=== PATIENT | male | born 1950 | race Caucasian/White ===

== ENCOUNTER → 2016-06-13 | Outpatient (CLI) | payer BC, OTHER ==
[~2016-06-13] MED LIST: AMLO2.5T PO; ASPI81TA28 PO; GABA-1218 PO; GLUC15002 PO; HYDR2TAB3 PO; INSUINJ2 SC; LSNP/30 PO; METF-383 PO; MULT-506 PO; NAPR1TAB9 PO; NRN/300 PO; ONDA4TAB7 SL
== END | disposition home or self-care (01) ==
LOC: C.LAB 09:35
PROVIDERS: ATTEND Psychiatry & Neurology Neurology
DX: R41.3 Other amnesia (principal)

== ENCOUNTER → 2016-06-19 | Outpatient (CLI) | payer BC, OTHER ==
--- NOTE | 2016-06-19 14:16 | DIAGNOSTIC IMAGING REPORT ---
MR ANGIOGRAM OF THE BRAIN CLINICAL HISTORY: Memory changes. Dementia. Behavioral disturbance. COMPARISON STUDY: No priors. TECHNIQUE: 3-D [id number] MR angiography of the intracranial circulation is performed. 3-D tumble views are created and assessed. IV contrast was not administered for this examination. FINDINGS: The internal carotid arteries are widely patent bilaterally, as are the anterior and middle cerebral arteries. The vertebrobasilar system and posterior cerebral arteries are widely patent. The left vertebral artery is dominant. There is no aneurysm, high-grade stenosis, or focal vessel cutoff seen throughout the intracranial circulation. The brain parenchyma is normal as visualized. IMPRESSION: Unremarkable MR angiogram of the brain. Electronically signed by: En Willard M.D. 06/19/2016 2:15 PM Dictated Date/Time: 06/19/2016 2:11 PM
--- NOTE | 2016-06-19 14:28 | DIAGNOSTIC IMAGING REPORT ---
MRI OF THE BRAIN WITHOUT IV CONTRAST CLINICAL HISTORY: Memory loss. Dementia. Behavioral disturbances. COMPARISON STUDY: No priors. TECHNIQUE: MRI of the brain was performed utilizing various T1 and T2-weighted sequences in the axial, sagittal, and coronal planes. IV contrast was not administered for this examination. FINDINGS: Brain parenchyma: There are age-related involutional changes noting moderate patchy subcortical and periventricular microangiopathic disease. There is no hemorrhage or mass effect. There is a tiny chronic lacunar infarct in the right cerebellar hemisphere. There is no restricted diffusion to suggest acute ischemia. Roberts-white matter differentiation is preserved. No extra-axial fluid collection is seen. The cerebellar tonsils are normal in configuration. Ventricles, sulci, and cisterns: Prominent secondary to involutional change. Pituitary and sella: Unremarkable. Intracranial vasculature: Normal flow voids are maintained at the skull base. Orbits: The bony orbits are grossly intact. Orbital contents are normal in appearance. Sinuses and mastoids: Clear. Calvarium: Unremarkable. Cervical cord: Partially visualized cervical spinal cord is normal in morphology and signal intensity. IMPRESSION: Senescent changes as above with no acute intracranial abnormality. Electronically signed by: En Willard M.D. 06/19/2016 2:26 PM Dictated Date/Time: 06/19/2016 2:19 PM
== END | disposition home or self-care (01) ==
LOC: C.MRI 12:53
PROVIDERS: ATTEND Psychiatry & Neurology Neurology
DX: R41.3 Other amnesia (principal); F02.81 Dementia in other diseases classified elsewhere, unspecified severity, with behavioral disturbance

== ENCOUNTER 2018-05-03 16:26 | Inpatient (IN) ==
[2018-05-03 16:50] LABS: Basophils # (auto) 0.05 K/uL (0-0.2); Basophils % (auto) 0.4 %; Eosinophils # (auto) 0.39 K/uL (0-0.5); Eosinophils % (auto) 2.9 %; Hematocrit (blood only) 46.2 % (42-52); Hemoglobin 14.8 g/dL (14.0-18.0); Immature Granulocytes # (auto) 0.09 K/uL (0.00-0.02); Immature Granulocytes % (auto) 0.7 %; Lymphocytes # (auto) 3.33 K/uL (1.2-3.4); Lymphocytes % (auto) 24.9 %; Mean Corpuscular Volume 95.3 fL (80-100); Mean Platelet Volume 9.8 fL (7.4-10.4); Monocytes # (auto) 1.05 K/uL (0.11-0.59); Monocytes % (auto) 7.8 %; Neutrophils # (auto) 8.48 K/uL (1.4-6.5); Neutrophils % (auto) 63.3 %; Platelet Count 232 K/uL (130-400); RDW Coefficient of Variation 14.1 % (11.5-14.5); RDW Standard Deviation 49.4 fL (36.4-46.3); Red Blood Count 4.85 M/uL (4.7-6.1); White Blood Count 13.39 K/uL (4.8-10.8)
[2018-05-03] MEDS ORDERED: SODIUM CHLORIDE 0.9% 1000ML 1,000 ML IV ONE (16:53)
[2018-05-03 16:59] LABS: iSTAT Creatinine 4.2 mg/dl (0.6-1.3); iSTAT Ionized Calcium 1.12 mmol/l (1.12-1.32)
--- NOTE | 2018-05-03 17:09 | XRay Report ---
SINGLE VIEW CHEST CLINICAL HISTORY: Cough. FINDINGS: An AP, portable, semierect chest radiograph is compared to study dated 03/07/2014. The exami nation is degraded by portable technique and apical lordotic positioning. The heart is enlarged and there is atherosclerotic calcification of the thoracic aorta. The pulmonary vasculature is noncongest ed. There is chronic elevation of the right hemidiaphragm and bibasilar atelectasis. There is no larg e pleural effusion or pneumothorax. No pneumothorax is seen. The skeletal structures are osteopenic. The bony thorax is grossly intact. Arthritic change is seen in the shoulders and thoracic spine. IMPRESSION: 1. Cardiomegaly without radiographic evidence of congestive failure. 2. Bibasilar atelectasis with no airspace consolidation or large pleural effusion identified. Electronically signed by: En Willard M.D. 05/03/2018 5:08 PM
--- NOTE | 2018-05-03 17:18 | CT Scan Report ---
CT OF THE HEAD WITHOUT CONTRAST CLINICAL HISTORY: Altered mental status. COMPARISON STUDY: MRI of the brain June 19, 2016. CT DOSE: 945.80 mGy.cm TECHNIQUE: Helical axial images of the head were obtained without IV contrast. Automated exposure con trol was utilized for the study. A dose lowering technique was utilized adhering to the principles o f ALARA. FINDINGS: Exam is mildly compromised by motion artifact. No acute intracranial hemorrhage, midline sh ift or mass effect is present. Ventricular system is stable. The basilar cisterns are patent. There a re no extra axial collections. White matter hypodensity suggests small vessel disease. There are no f indings to suggest acute dural sinus thrombosis or acute territorial infarct. There are no significan t calvarial abnormalities. IMPRESSION: 1. No acute intracranial findings. 2. Study mildly compromised by motion artifact. Electronically signed by: Lionel Barrett M.D. 05/03/2018 5:17 PM
[2018-05-03 17:22] LABS: Alanine Aminotransferase 34 U/L (12-78); Albumin Globulin Ratio 0.6 (0.9-2); Alkaline Phosphatase 105 U/L (45-117); Aspartate Aminotransferase 37 U/L (15-37); BUN Creatinine Ratio 16.4 (10-20); Bilirubin,Total 0.4 mg/dl (0.2-1); Blood Urea Nitrogen 75 mg/dl (7-18); Calcium 8.6 mg/dl (8.5-10.1); Carbon Dioxide 36 mmol/L (21-32); Chloride 95 mmol/L (98-107); Creatinine Clr Calc Pharmacy 20.2 ml/min; Est GFR (African American) 14.3; Est GFR (Non-African American) 12.4; Globulin 4.9 gm/dl (2.5-4.0); Glucose 135 mg/dl (70-99); Potassium 4.1 mmol/L (3.5-5.1); Sodium 137 mmol/L (136-145); Total Protein 7.9 gm/dl (6.4-8.2)
[2018-05-03 17:40] LABS: Appearance Urine Clear (Clear); Bacteria Urine Automated Negative (Negative); Bilirubin Urine Negative (Negative); Blood Urine Negative (Negative); Color Urine Dark Yellow; Epithelial Cell Urine Auto 0-5 /lpf (0-5); Glucose Urine UA 1+ (Negative); Ketones Urine Trace (Negative); Leukocyte Esterase Urine Negative (Negative); Nitrite Urine Negative (Negative); Protein Urine Trace (Negative); Specific Gravity Urine 1.026 (1.000-1.030); Urobilinogen Urine Negative (Negative)
[2018-05-03 17:49] LABS: Troponin I < 0.015 ng/ml (0-0.045)
--- NOTE | 2018-05-03 19:22 | History & Physical Report ---
Date of Service May 03, 2018 Assessment & Plan (1) Acute renal failure: Secondary to dehydration secondary to prerenal etiology/poor oral intake likely secondary to underlying infection Start IV NSS at 150 cc/h Hold lisinopril and HCTZ Renally dose medications Management of infection noted below Consult nephrology Kidney ultrasound (2) Poor appetite: Likely secondary to underlying infection Possible bronchitis Chest x-ray: No pneumonia Start doxycycline IV Sacral decubitus wound infection Check wound culture, blood culture, urine urine culture Start cefepime IV (3) Altered mental status: Likely metabolic encephalopathy secondary to hypoglycemia, acute renal failure, in the setting of narcotic and multiple medication use Aspect of hypoglycemia noted below Hold oxycodone acetaminophen, cyclobenzaprine; resume accordingly (4) Diabetes type 2 with atherosclerosis of arteries of extremities: Patient presented with hypoglycemia likely secondary to acute renal failure in the setting of poor oral intake, insulin use, underlying infection For now, hold usual insulin, glycemic control service consulted (5) Hypertension: Blood pressure in the low side Frontal, resume in the morning possibly reduce dose Hold lisinopril to hold thiazide (6) Low back pain: Usually on oxycodone/acetaminophen, cyclobenzaprine Hold for tonight, in light of altered mental status and acute renal failure Resume accordingly (7) DVT prophylaxis: Heparin subcutaneous 3 times daily (8) Discharge planning issues: Pending, Mostly bedbound, Lives at home with his who is his primary caregiver History of Present Illness Primary Care Provider: Lee Martinez Patient is a 68-year-old male with a history of Parkinson's disease with dementia, diabetes, hypertension, low back pain presenting with altered mental status and hypoglycemia. Obtained from patient's at the bedside who is his primary caregiver. As per patient's the patient is mostly bedbound and able to go to bathroom with maximum assistance. Terms of his mental status the patient has poor short-term memory, answers questions appropriately at least 70% of the time. Patient was at his usual state of health until over the weekend when he was noted to have productive cough, associated with fever. This progressed leading to poor appetite as well. Patient was still receiving his usual insulin doses as well as pain medications muscle relaxants. This morning the patient only had applesauce for breakfast and before lunch only had a few bites as well. He did receive his usual insulin dose. Around 2 PM the patient was noted to have altered mental status described as lethargy, not responding much to questions, and blood sugar was found to be in the 60s. He was given orange juice, which slightly improved his blood sugar. Patient was then brought to the ER for evaluation At the ER the patient was found to have creatinine of 4.49. CT head no acute process. Hospitalist consulted for admission . Allergies Allergy/AdvReac Type Severity Reaction Status Date / Time No Known Allergies Allergy Unverified 03/07/14 08:20 Past Med/Surg History Medical History Mini stroke Dementia (Chronic) Parkinson's disease (Chronic) Diabetes (Chronic) Hypertension (Chronic) Surgical History History of hip replacement, total (Chronic) Hx of cholecystectomy (Chronic) Social History marital status: Current Living Situation: Family Feels Safe at Home: Yes Smoking Status: Never smoker Review of Systems Constitutional-positive as noted above Eyes- no acute visual changes ENT- no sinus drainage; no pharyngitis Pulmonary-positive as noted above Cardiac- no chest pain, no palpitations, no orthopnea, no dependent edema GI- no nausea, no vomiting, no diarrhea, no melena, no hematochezia - no dysuria, no hematuria Musculoskeletal- no arthralgias, no myalgias Derm- no rashes, no new skin lesions, no changing skin lesions Hematologic- no unusual bruising, no unusual bleeding Lymphatics- no adenopathy Endocrine- no polyuria or polydipsia; no heat or cold intolerance Neuro-positive as noted above Psych- no anxiety, no depression Physical Exam Vital Signs (Past 24 Hours): Last Vital Signs Temp 37.1 C 05/03/18 16:25 Pulse 79 05/03/18 18:24 Resp 20 05/03/18 18:24 BP 109/63 05/03/18 18:09 Pulse Ox 93 05/03/18 18:24 Physical Exam: General- oriented x 2, not in distress, speaks in sentences with no effort or accessory muscle use Head- atraumatic Eyes- PERRL, EOMI, anicteric ENT- oropharynx clear Neck- supple, no JVD, no adenopathy, no thyromegaly; carotids +2/2, no bruits appreciated Lungs-mild lung rhonchi bilateral bases, no wheezing, good air entry bilaterally Heart- normal rate, regular rhythm; no murmur, no gallop, no rub appreciated Abdomen- normal bowel sounds, nondistended, soft, nontender, no masses or hepatosplenomegaly Buttocks-positive open sacral decubitus wounds mostly stage II with surrounding erythema Extremities- no pretibial edema, no calf tenderness; peripheral pulses intact Neuro- alert, oriented x 2; CN 2-12 grossly intact; motor 5/5 bilaterally;sensation 100% on all extremities; no other gross focal neurologic deficits Skin- warm & dry Results & Data Laboratory Results Laboratory Results - last 24 hr 05/03/18 05/03/18 05/03/18 16:32 16:32 16:38 WBC 13.39 H RBC 4.85 Hgb 14.8 POC Hgb Hct 46.2 POC Hct MCV 95.3 MCH 30.5 MCHC 32.0 RDW Std Deviation 49.4 H RDW Coeff of Apollo 14.1 Plt Count 232 MPV 9.8 Immature Gran % (Auto) 0.7 Neut % (Auto) 63.3 Lymph % (Auto) 24.9 Amador % (Auto) 7.8 Eos % (Auto) 2.9 Baso % (Auto) 0.4 Immature Gran # (Auto) 0.09 H Neut # (Auto) 8.48 H Lymph # (Auto) 3.33 Amador # (Auto) 1.05 H Eos # (Auto) 0.39 Baso # (Auto) 0.05 POC Sodium Sodium 137 POC Potassium Potassium 4.1 POC Chloride Chloride 95 L Carbon Dioxide 36 H POC Total CO2 Anion Gap 6.0 POC Anion Gap POC BUN BUN 75 H Creatinine 4.49 H POC Creatinine Est Cr Clr Drug Dosing 20.2 Est GFR ( Amer) 14.3 Est GFR (Non-Af Amer) 12.4 BUN/Creatinine Ratio 16.4 Glucose 135 H POC Glucose 125 H POC Glucose (other) POC Lactic Acid Aakash Calcium 8.6 POC Ioniz Calcium Cally Total Bilirubin 0.4 AST 37 ALT 34 Alkaline Phosphatase 105 Troponin I < 0.015 Total Protein 7.9 Albumin 3.0 L Globulin 4.9 H Albumin/Globulin Ratio 0.6 L Urine Color Urine Appearance Urine pH Ur Specific Hamilton Urine Protein Urine Glucose (UA) Urine Ketones Urine Blood Urine Nitrite Urine Bilirubin Urine Urobilinogen Ur Leukocyte Esterase Urine WBC (Auto) Urine RBC (Auto) U Hyaline Cast (Auto) U Epithel Cells (Auto) Urine Bacteria (Auto) Influenza Type A Ag Influenza Type B Ag 05/03/18 05/03/18 05/03/18 16:43 16:46 17:00 WBC RBC Hgb POC Hgb 16.0 Hct POC Hct 47 MCV MCH MCHC RDW Std Deviation RDW Coeff of Apollo Plt Count MPV Immature Gran % (Auto) Neut % (Auto) Lymph % (Auto) Amador % (Auto) Eos % (Auto) Baso % (Auto) Immature Gran # (Auto) Neut # (Auto) Lymph # (Auto) Amador # (Auto) Eos # (Auto) Baso # (Auto) POC Sodium 138 Sodium POC Potassium 4.0 Potassium POC Chloride 93 L Chloride Carbon Dioxide POC Total CO2 33 H Anion Gap POC Anion Gap 18.0 POC BUN 66 H BUN Creatinine POC Creatinine 4.2 H Est Cr Clr Drug Dosing Est GFR ( Amer) Est GFR (Non-Af Amer) BUN/Creatinine Ratio Glucose POC Glucose POC Glucose (other) 135 H POC Lactic Acid Aakash 2.66 H Calcium POC Ioniz Calcium Cally 1.12 Total Bilirubin AST ALT Alkaline Phosphatase Troponin I Total Protein Albumin Globulin Albumin/Globulin Ratio Urine Color Urine Appearance Urine pH Ur Specific Hamilton Urine Protein Urine Glucose (UA) Urine Ketones Urine Blood Urine Nitrite Urine Bilirubin Urine Urobilinogen Ur Leukocyte Esterase Urine WBC (Auto) Urine RBC (Auto) U Hyaline Cast (Auto) U Epithel Cells (Auto) Urine Bacteria (Auto) Influenza Type A Ag Neg for Influ A Influenza Type B Ag Neg for Influ B 05/03/18 17:00 WBC RBC Hgb POC Hgb Hct POC Hct MCV MCH MCHC RDW Std Deviation RDW Coeff of Apollo Plt Count MPV Immature Gran % (Auto) Neut % (Auto) Lymph % (Auto) Amador % (Auto) Eos % (Auto) Baso % (Auto) Immature Gran # (Auto) Neut # (Auto) Lymph # (Auto) Amador # (Auto) Eos # (Auto) Baso # (Auto) POC Sodium Sodium POC Potassium Potassium POC Chloride Chloride Carbon Dioxide POC Total CO2 Anion Gap POC Anion Gap POC BUN BUN Creatinine POC Creatinine Est Cr Clr Drug Dosing Est GFR ( Amer) Est GFR (Non-Af Amer) BUN/Creatinine Ratio Glucose POC Glucose POC Glucose (other) POC Lactic Acid Aakash Calcium POC Ioniz Calcium Cally Total Bilirubin AST ALT Alkaline Phosphatase Troponin I Total Protein Albumin Globulin Albumin/Globulin Ratio Urine Color Dark Yellow Urine Appearance Clear Urine pH 5.0 Ur Specific Hamilton 1.026 Urine Protein Trace H Urine Glucose (UA) 1+ H Urine Ketones Trace H Urine Blood Negative Urine Nitrite Negative Urine Bilirubin Negative Urine Urobilinogen Negative Ur Leukocyte Esterase Negative Urine WBC (Auto) 1-5 Urine RBC (Auto) 5-10 H U Hyaline Cast (Auto) 5-10 H U Epithel Cells (Auto) 0-5 Urine Bacteria (Auto) Negative Influenza Type A Ag Influenza Type B Ag Diagnostic Findings All noted and reviewed
[2018-05-03] MEDS ORDERED: ONDANSETRON INJ 2 MG/ML 2 ML VIAL IV PRN (20:01)
[2018-05-03] MEDS ORDERED: ACETAMINOPHEN 325 MG TAB PO PRN (20:01)
[2018-05-03] MEDS ORDERED: CEFEPIME CONSULT ACTIVE PRN (21:08)
[2018-05-03] MEDS ORDERED: PHARMACY GLYCEMIC MGMT CONSULT PRN (21:10)
[2018-05-03] MEDS ORDERED: DOXY~PHARMACY CONSULT IN PROGRESS PRN (21:12)
[2018-05-03] MEDS: SODIUM CHLORIDE 0.9% 1000ML 1,000 ML IV SCH (21:25)
[2018-05-03] MEDS ORDERED: CEFEPIME 2,000 MG in SYRINGE 7.5 ML IV SCH (21:30)
[2018-05-03] MEDS: ROPINIROLE HCL 1 MG TABLET PO SCH (21:57)
[2018-05-03] MEDS: GABAPENTIN 100 MG CAP PO SCH (21:57)
[2018-05-03] MEDS: DOXYCYCLINE HYCLATE 100 MG in DEXTROSE 5% 100 ML IV SCH (22:00)
--- NOTE | 2018-05-03 22:23 | Ultrasound Report ---
ULTRASOUND KIDNEYS AND BLADDER CLINICAL HISTORY: Acute renal insufficiency. COMPARISON STUDY: Abdominal CT dated 03/07/2014. TECHNIQUE: Real-time, grayscale, and color flow sonography of the kidneys and bladder is performed. I mages are reviewed in the transverse and longitudinal planes. The examination is suboptimal due to la ck of patient cooperation. FINDINGS: Kidneys: The kidneys are normal in size and echotexture. The right kidney measures 10.7 cm in length and the left kidney measures 11.8 cm in length. There is no hydronephrosis. No shadowing renal calcu li are identified. There is no sonographic evidence of contour deforming renal mass lesion. No perine phric fluid is identified. Bladder: The bladder is decompressed and a Blevins catheter and could not be assessed. Upper abdomen: Survey images of the liver show evidence of hepatomegaly and hepatic steatosis. IMPRESSION: 1. The kidneys are normal in size and without hydronephrosis. 2. The bladder was decompressed around a Blevins catheter and could not be evaluated. 3. Hepatomegaly and hepatic steatosis. Electronically signed by: En Willard M.D. 05/03/2018 10:21 PM
[2018-05-03] MEDS ORDERED: CARBOHYDRATES FOR HYPOGLYCEMIA PO PRN (22:30)
[2018-05-03] MEDS ORDERED: GLUCAGON FOR INJ 1 MG VIAL SQ PRN (22:30)
[2018-05-03] MEDS ORDERED: DEXTROSE 50% 50 ML SYRINGE IV PRN (22:30)
[2018-05-03] MEDS ORDERED: GLUCOSE 10 TABS/TUBE PO PRN (22:30)
[2018-05-03] MEDS ORDERED: GLUCOSE 40% GEL 15 GM TUBE PO PRN (22:30)
--- NOTE | 2018-05-03 23:15 | Emergency Department Note ---
Entered by Moen Dixon acting as a scribe for History of Present Illness General Chief complaint: Confusion Stated complaint: UNRESPONESIVE, HYPOTENTION Source: patient and family Mode of arrival: EMS Limitations: altered mental status History of Present Illness Provider complaint: hypoglycemia Onset (ago): hour(s) (HAND WELT BUTTER) Location: head Pain Consistency: + other (episode) Maximum Pain Intensity: 10 Current Pain Intensity: 4 Quality: + other (hypoglycemia) Associated symptoms: + denies other symptoms (abdominal pain) and + cough; no chest pain, no fever/chills, no headaches, no nausea/vomiting, no seizure and no shortness of breath The patient is a 68 year old male who presents to the Emergency Room via EMS following an episode of hypoglycemia that occurred earlier today. The at bedside reports that the patient is diabetic and earlier today was �acting funny,� so she checked with blood sugar which was 50. She states that she then gave him a candy bar and 2 cups of orange juice. Per , the patient has been having trouble with his blood sugar levels recently and notes he had lab work done last month which showed an elevated A1C. She reports that the patient has had a productive cough and states that he is bringing up yellow mucus. She denies any fevers, vomiting, falls or seizures but states that he did have an episode of epistaxis on Wednesday. The also notes that the patient has a history of 2 mini �strokes as well as dementia and Parkinson�s. Per , the patient did not receive the flu vaccine this season. The patient denies any chest pain, headache, abdominal pain, or shortness of breath. The reports that the patient uses nasal cannula oxygen at night. Home Medications Home Medications Medication Instructions Recorded Confirmed Type C,E,zinc,copper [id number] 1 cap PO DAILY 05/03/18 05/03/18 History [Ocuvite Adult 50 Plus] Narcan 4mg/0.1 1 dose PO UD PRN 05/03/18 05/03/18 History aspirin [Aspir-81] 81 mg PO DAILY 05/03/18 05/03/18 History carboxymethylcellulose-glycern 1 - 2 drp OPHTHALMIC (EYE) BID PRN 05/03/18 05/03/18 History [Refresh Repair] cholecalciferol (vitamin D3) 400 unit PO DAILY 05/03/18 05/03/18 History [Vitamin D3] cyanocobalamin (vitamin B-12) 500 mcg PO DAILY 05/03/18 05/03/18 History [Vitamin B-12] cyclobenzaprine 10 mg PO TID 05/03/18 05/03/18 History docusate sodium [Colace] 100 mg PO DAILY PRN 05/03/18 05/03/18 History gabapentin [Neurontin] 1,200 mg PO TID 05/03/18 05/03/18 History insulin regular hum U-500 conc 50 unit SUBCUT BID 05/03/18 05/03/18 History [Humulin R U-500 (Conc) Kwikpen] insulin regular hum U-500 conc 70 unit SUBCUT QAM 05/03/18 05/03/18 History [Humulin R U-500 (Conc) Kwikpen] lisinopril-hydrochlorothiazide 1 tab PO DAILY 05/03/18 05/03/18 History [Zestoretic] memantine-donepezil [Namzaric] 1 cap PO DAILY 05/03/18 05/03/18 History metformin [Glucophage] 1,000 mg PO BID 05/03/18 05/03/18 History multivitamin 1 tab PO DAILY 05/03/18 05/03/18 History oxycodone [OxyContin] 20 mg PO Q12 05/03/18 05/03/18 History oxycodone-acetaminophen [Percocet] 1 tab PO QID PRN 05/03/18 05/03/18 History propranolol 20 mg PO BID 05/03/18 05/03/18 History ropinirole 1 mg PO BID 05/03/18 05/03/18 History sennosides [senna] 8.6 mg PO BID PRN 05/03/18 05/03/18 History Allergies Allergy/AdvReac Type Severity Reaction Status Date / Time No Known Allergies Allergy Unverified 03/07/14 08:20 Past Med/Surg History Medical History Mini stroke Dementia (Chronic) Parkinson's disease (Chronic) Diabetes (Chronic) Hypertension (Chronic) Surgical History History of hip replacement, total (Chronic) Hx of cholecystectomy (Chronic) Social History Preferred Language: Pashto Communication Ability: Effective Management Architect Required: No Beliefs That Will Affect Care: None marital status: Current Living Situation: Spouse and Family Current Living Situation Comment: AND 3 CHILDREN Other Information That Helps Us Care for You: No Feels Safe at Home: Yes Safety Concerns: Feels Safe At This Time Smoking Status: Never smoker Hx Alcohol Use: No Hx Substance Use: No Review of Systems Other (HPI and ROS are both limited secondary to altered mental status. ) Physical Exam Vital Signs Vital Signs - 24 hr 05/03/18 16:25 05/03/18 16:50 05/03/18 17:13 Temperature 37.1 C Temperature Source Oral Sepsis Recent Fever Within 48 Hours No Sepsis New/Unexplained Change in Mental Status No Sepsis Action Taken by Nursing No Action Required Pulse Rate 83 78 Pulse Rate [Apical] 100 H Pulse Rhythm Regular Pulse Rhythm [Apical] Regular Pulse Strength Normal Pulse Strength [Apical] Normal Respiratory Rate 19 18 18 Respiratory Effort / Characteristics Non-Labored Spontaneous Non-Labored Spontaneous Respiratory Depth Normal Normal Respiratory Pattern Regular Regular Blood Pressure 128/73 93/75 L Blood Pressure [Left Arm] 114/82 Blood Pressure Mean 91 81 Blood Pressure Mean [Left Arm] 92 Blood Pressure Position [Left Arm] Lying Pulse Oximetry 90 91 89 L Oxygen Delivery Method Room Air Nasal Cannula Nasal Cannula Oxygen Flow Rate 2 2 05/03/18 17:25 05/03/18 17:32 05/03/18 17:54 Temperature Temperature Source Sepsis Recent Fever Within 48 Hours Sepsis New/Unexplained Change in Mental Status Sepsis Action Taken by Nursing Pulse Rate 77 Pulse Rate [Apical] 78 78 Pulse Rhythm Regular Pulse Rhythm [Apical] Regular Regular Pulse Strength Pulse Strength [Apical] Respiratory Rate 18 20 19 Respiratory Effort / Characteristics Labored Non-Labored Spontaneous Respiratory Depth Normal Normal Respiratory Pattern Regular Blood Pressure Blood Pressure [Left Arm] 94/63 L 108/67 Blood Pressure Mean Blood Pressure Mean [Left Arm] 73 80 Blood Pressure Position [Left Arm] Pulse Oximetry 94 95 95 Oxygen Delivery Method Nasal Cannula Nasal Cannula Nasal Cannula Oxygen Flow Rate 3 3 3 05/03/18 18:09 05/03/18 18:24 05/03/18 19:33 Temperature 36.8 C Temperature Source Oral Sepsis Recent Fever Within 48 Hours Sepsis New/Unexplained Change in Mental Status Sepsis Action Taken by Nursing Pulse Rate Pulse Rate [Apical] 78 79 79 Pulse Rhythm Pulse Rhythm [Apical] Regular Regular Regular Pulse Strength Pulse Strength [Apical] Normal Respiratory Rate 17 20 20 Respiratory Effort / Characteristics Non-Labored Spontaneous Non-Labored Spontaneous Respiratory Depth Normal Normal Normal Respiratory Pattern Regular Regular Blood Pressure Blood Pressure [Left Arm] 109/63 104/65 Blood Pressure Mean Blood Pressure Mean [Left Arm] 78 78 Blood Pressure Position [Left Arm] Lying Pulse Oximetry 96 93 91 Oxygen Delivery Method Nasal Cannula Nasal Cannula Nasal Cannula Oxygen Flow Rate 3 3 4 Constitutional: Vital signs reviewed. Eyes: Pupils are equal round reactive to light. Conjunctiva are noninjected. ENT: Pharynx is clear without erythema or exudate. Mucous membranes are moist. Neck supple without meningeal signs. Respiratory: Clear to auscultation bilaterally. Breath sounds are equal bilaterally. Cardiovascular: Regular rate and rhythm. No rubs or gallops. GI: Soft, nondistended and nontender. Bowel sounds are present. Musculoskeletal: No peripheral edema. No lower extremity tenderness. Integumentary: No cyanosis. Neurological: The patient is awake and alert. Cranial nerves II-XII are intact. Motor is 5 out of 5 all extremities. Follows some commands. Psychiatric: Unable to asses. Course 1633: Past medical records reviewed. The patient was evaluated in room A1, and a complete history and physical examination were performed. 1651: ISTAT labs demonstrate creatinine of 4.2 and normal potassium. The states that the patient has been urinating about 25% less than usual over the past several days and that his urine has been dark for years. 1727: I reviewed the patient's case with Zee Rojas [facility] Hospitalist. She will evaluate the patient for further management. 1731: I updated the patient and his on today's findings and treatment plan. The says the patient is back to baseline. Administered Medications Gabapentin (Neurontin) 200 mg PO TID [facility] Stop: 06/02/18 20:59 Last Admin: 05/03/18 21:57 Dose: 200 mg Documented by: [id number] Sodium Chloride (Nss 1000ml) 1,000 mls @ 150 mls/hr IV .Q6H40M [facility] Stop: 06/02/18 20:00 Last Admin: 05/03/18 21:25 Dose: 150 mls/hr Documented by: [id number] Doxycycline Hyclate 100 mg/ (Dextrose) 110 mls @ 55 mls/hr IV Q12H GEOVANNA Stop: 05/13/18 21:59 Last Admin: 05/03/18 22:00 Dose: 55 mls/hr Documented by: [id number] Ropinirole HCl (Requip) 1 mg PO BID GEOVANNA Stop: 06/02/18 20:59 Last Admin: 05/03/18 21:57 Dose: 1 mg Documented by: [id number] Discontinued Medications Sodium Chloride (Nss 1000ml) 1,000 mls @ 999 mls/hr IV .Q1H1M ONE Stop: 05/03/18 17:53 Last Infusion: 05/03/18 17:58 Dose: 0 mls/hr Documented by: [id number] Admin: 05/03/18 16:56 Dose: 999 mls/hr Documented by: [id number] Cefepime HCl 2,000 mg/ Syringe 20 mls @ 5 mls/min IV TODAY@2130 GEOVANNA Stop: 05/03/18 21:33 Last Admin: 05/03/18 21:57 Dose: 5 mls/min Documented by: [id number] Medical Decision Making Differential Diagnosis Differential Diagnosis includes: hypoglycemia, metabolic derangement, sepsis, influenza, pneumonia, and CVA. Medical Records Attestation: I reviewed the patient's medical records. Home Medications Current Medication List: was personally reviewed by me Laboratory Data Attestation: I reviewed the patient's lab results. Result diagrams: 05/03/18 16:32 05/03/18 16:32 Lab Results 05/03/18 05/03/18 05/03/18 Range/Units 16:32 16:32 16:32 WBC 13.39 H (4.8-10.8) K/uL RBC 4.85 (4.7-6.1) M/uL Hgb 14.8 (14.0-18.0) g/dL POC Hgb (14.0-18.0) g/dl Hct 46.2 (42-52) % POC Hct (42-52) % MCV 95.3 (80-100) fL MCH 30.5 (25-34) pg MCHC 32.0 (32-36) g/dL RDW Std Deviation 49.4 H (36.4-46.3) fL RDW Coeff of Apollo 14.1 (11.5-14.5) % Plt Count 232 (130-400) K/uL MPV 9.8 (7.4-10.4) fL Immature Gran % (Auto) 0.7 % Neut % (Auto) 63.3 % Lymph % (Auto) 24.9 % [place] % (Auto) 7.8 % Eos % (Auto) 2.9 % Baso % (Auto) 0.4 % Immature Gran # (Auto) 0.09 H (0.00-0.02) K/uL Neut # (Auto) 8.48 H (1.4-6.5) K/uL Lymph # (Auto) 3.33 (1.2-3.4) K/uL [place] # (Auto) 1.05 H (0.11-0.59) K/uL Eos # (Auto) 0.39 (0-0.5) K/uL Baso # (Auto) 0.05 (0-0.2) K/uL POC Sodium (135-144) mEq/L Sodium 137 (136-145) mmol/L POC Potassium (3.3-5.0) mEq/L Potassium 4.1 (3.5-5.1) mmol/L POC Chloride (101-112) mEq/L Chloride 95 L (98-107) mmol/L Carbon Dioxide 36 H (21-32) mmol/L POC Total CO2 (24-31) mEq/l Anion Gap 6.0 (3-11) POC Anion Gap (16-25) mmol/L POC BUN (7-18) mg/dl BUN 75 H (7-18) mg/dl Creatinine 4.49 H (0.6-1.4) mg/dl POC Creatinine (0.6-1.3) mg/dl Est Cr Clr Drug Dosing 20.2 ml/min Est GFR ( Amer) 14.3 Est GFR (Non-Af Amer) 12.4 BUN/Creatinine Ratio 16.4 (10-20) Glucose 135 H (70-99) mg/dl POC Glucose (70-99) POC Glucose (other) (70-99) mg/dl POC Lactic Acid Aakash (0.90-1.70) mmol/L Calcium 8.6 (8.5-10.1) mg/dl POC Ioniz Calcium Cally (1.12-1.32) mmol/l Total Bilirubin 0.4 (0.2-1) mg/dl AST 37 (15-37) U/L ALT 34 (12-78) U/L Alkaline Phosphatase 105 (45-117) U/L Troponin I < 0.015 (0-0.045) ng/ml Total Protein 7.9 (6.4-8.2) gm/dl Albumin 3.0 L (3.4-5.0) gm/dl Globulin 4.9 H (2.5-4.0) gm/dl Albumin/Globulin Ratio 0.6 L (0.9-2) Urine Color Urine Appearance (Clear) Urine pH (4.5-7.5) Ur Specific [place] (1.000-1.030) Urine Protein (Negative) Urine Glucose (UA) (Negative) Urine Ketones (Negative) Urine Blood (Negative) Urine Nitrite (Negative) Urine Bilirubin (Negative) Urine Urobilinogen (Negative) Ur Leukocyte Esterase (Negative) Urine WBC (Auto) (0-5) /hpf Urine RBC (Auto) (0-4) /hpf U Hyaline Cast (Auto) (0-5) /lpf U Epithel Cells (Auto) (0-5) /lpf Urine Bacteria (Auto) (Negative) Hepatitis C Ab Screen Neg (Neg) Influenza Type A Ag (Neg) Influenza Type B Ag (Neg) 05/03/18 05/03/18 05/03/18 Range/Units 16:38 16:43 16:46 WBC (4.8-10.8) K/uL RBC (4.7-6.1) M/uL Hgb (14.0-18.0) g/dL POC Hgb 16.0 (14.0-18.0) g/dl Hct (42-52) % POC Hct 47 (42-52) % MCV (80-100) fL MCH (25-34) pg MCHC (32-36) g/dL RDW Std Deviation (36.4-46.3) fL RDW Coeff of Apollo (11.5-14.5) % Plt Count (130-400) K/uL MPV (7.4-10.4) fL Immature Gran % (Auto) % Neut % (Auto) % Lymph % (Auto) % [place] % (Auto) % Eos % (Auto) % Baso % (Auto) % Immature Gran # (Auto) (0.00-0.02) K/uL Neut # (Auto) (1.4-6.5) K/uL Lymph # (Auto) (1.2-3.4) K/uL [place] # (Auto) (0.11-0.59) K/uL Eos # (Auto) (0-0.5) K/uL Baso # (Auto) (0-0.2) K/uL POC Sodium 138 (135-144) mEq/L Sodium (136-145) mmol/L POC Potassium 4.0 (3.3-5.0) mEq/L Potassium (3.5-5.1) mmol/L POC Chloride 93 L (101-112) mEq/L Chloride (98-107) mmol/L Carbon Dioxide (21-32) mmol/L POC Total CO2 33 H (24-31) mEq/l Anion Gap (3-11) POC Anion Gap 18.0 (16-25) mmol/L POC BUN 66 H (7-18) mg/dl BUN (7-18) mg/dl Creatinine (0.6-1.4) mg/dl POC Creatinine 4.2 H (0.6-1.3) mg/dl Est Cr Clr Drug Dosing ml/min Est GFR ( Amer) Est GFR (Non-Af Amer) BUN/Creatinine Ratio (10-20) Glucose (70-99) mg/dl POC Glucose 125 H (70-99) POC Glucose (other) 135 H (70-99) mg/dl POC Lactic Acid Aakash 2.66 H (0.90-1.70) mmol/L Calcium (8.5-10.1) mg/dl POC Ioniz Calcium Cally 1.12 (1.12-1.32) mmol/l Total Bilirubin (0.2-1) mg/dl AST (15-37) U/L ALT (12-78) U/L Alkaline Phosphatase (45-117) U/L Troponin I (0-0.045) ng/ml Total Protein (6.4-8.2) gm/dl Albumin (3.4-5.0) gm/dl Globulin (2.5-4.0) gm/dl Albumin/Globulin Ratio (0.9-2) Urine Color Urine Appearance (Clear) Urine pH (4.5-7.5) Ur Specific [place] (1.000-1.030) Urine Protein (Negative) Urine Glucose (UA) (Negative) Urine Ketones (Negative) Urine Blood (Negative) Urine Nitrite (Negative) Urine Bilirubin (Negative) Urine Urobilinogen (Negative) Ur Leukocyte Esterase (Negative) Urine WBC (Auto) (0-5) /hpf Urine RBC (Auto) (0-4) /hpf U Hyaline Cast (Auto) (0-5) /lpf U Epithel Cells (Auto) (0-5) /lpf Urine Bacteria (Auto) (Negative) Hepatitis C Ab Screen (Neg) Influenza Type A Ag (Neg) Influenza Type B Ag (Neg) 05/03/18 05/03/18 05/03/18 Range/Units 17:00 17:00 21:26 WBC (4.8-10.8) K/uL RBC (4.7-6.1) M/uL Hgb (14.0-18.0) g/dL POC Hgb (14.0-18.0) g/dl Hct (42-52) % POC Hct (42-52) % MCV (80-100) fL MCH (25-34) pg MCHC (32-36) g/dL RDW Std Deviation (36.4-46.3) fL RDW Coeff of Apollo (11.5-14.5) % Plt Count (130-400) K/uL MPV (7.4-10.4) fL Immature Gran % (Auto) % Neut % (Auto) % Lymph % (Auto) % [place] % (Auto) % Eos % (Auto) % Baso % (Auto) % Immature Gran # (Auto) (0.00-0.02) K/uL Neut # (Auto) (1.4-6.5) K/uL Lymph # (Auto) (1.2-3.4) K/uL [place] # (Auto) (0.11-0.59) K/uL Eos # (Auto) (0-0.5) K/uL Baso # (Auto) (0-0.2) K/uL POC Sodium (135-144) mEq/L Sodium (136-145) mmol/L POC Potassium (3.3-5.0) mEq/L Potassium (3.5-5.1) mmol/L POC Chloride (101-112) mEq/L Chloride (98-107) mmol/L Carbon Dioxide (21-32) mmol/L POC Total CO2 (24-31) mEq/l Anion Gap (3-11) POC Anion Gap (16-25) mmol/L POC BUN (7-18) mg/dl BUN (7-18) mg/dl Creatinine (0.6-1.4) mg/dl POC Creatinine (0.6-1.3) mg/dl Est Cr Clr Drug Dosing ml/min Est GFR ( Amer) Est GFR (Non-Af Amer) BUN/Creatinine Ratio (10-20) Glucose (70-99) mg/dl POC Glucose 120 H (70-99) POC Glucose (other) (70-99) mg/dl POC Lactic Acid Aakash (0.90-1.70) mmol/L Calcium (8.5-10.1) mg/dl POC Ioniz Calcium Cally (1.12-1.32) mmol/l Total Bilirubin (0.2-1) mg/dl AST (15-37) U/L ALT (12-78) U/L Alkaline Phosphatase (45-117) U/L Troponin I (0-0.045) ng/ml Total Protein (6.4-8.2) gm/dl Albumin (3.4-5.0) gm/dl Globulin (2.5-4.0) gm/dl Albumin/Globulin Ratio (0.9-2) Urine Color Dark Yellow Urine Appearance Clear (Clear) Urine pH 5.0 (4.5-7.5) Ur Specific [place] 1.026 (1.000-1.030) Urine Protein Trace H (Negative) Urine Glucose (UA) 1+ H (Negative) Urine Ketones Trace H (Negative) Urine Blood Negative (Negative) Urine Nitrite Negative (Negative) Urine Bilirubin Negative (Negative) Urine Urobilinogen Negative (Negative) Ur Leukocyte Esterase Negative (Negative) Urine WBC (Auto) 1-5 (0-5) /hpf Urine RBC (Auto) 5-10 H (0-4) /hpf U Hyaline Cast (Auto) 5-10 H (0-5) /lpf U Epithel Cells (Auto) 0-5 (0-5) /lpf Urine Bacteria (Auto) Negative (Negative) Hepatitis C Ab Screen (Neg) Influenza Type A Ag Neg for Influ A (Neg) Influenza Type B Ag Neg for Influ B (Neg) Imaging Data Radiologist's Impression: Radiology results as stated below per my review and the radiologist's interpretation: SINGLE VIEW CHEST CLINICAL HISTORY: Cough. FINDINGS: An AP, portable, semierect chest radiograph is compared to study dated 03/07/2014. The examination is degraded by portable technique and apical lordotic positioning. The heart is enlarged and there is atherosclerotic calcification of the thoracic aorta. The pulmonary vasculature is noncongested. There is chronic elevation of the right hemidiaphragm and bibasilar atelectasis. There is no large pleural effusion or pneumothorax. No pneumothorax is seen. The skeletal structures are osteopenic. The bony thorax is grossly intact. Arthritic change is seen in the shoulders and thoracic spine. IMPRESSION: 1. Cardiomegaly without radiographic evidence of congestive failure. 2. Bibasilar atelectasis with no airspace consolidation or large pleural effusion identified. Electronically signed by: En Willard M.D. 05/03/2018 5:[address] OF THE HEAD WITHOUT CONTRAST CLINICAL HISTORY: Altered mental status. COMPARISON STUDY: MRI of the brain June 19, 2016. CT DOSE: 945.80 mGy.cm TECHNIQUE: Helical axial images of the head were obtained without IV contrast. Automated exposure control was utilized for the study. A dose lowering technique was utilized adhering to the principles of ALARA. FINDINGS: Exam is mildly compromised by motion artifact. No acute intracranial hemorrhage, midline shift or mass effect is present. Ventricular system is stable. The basilar cisterns are patent. There are no extra axial collections. White matter hypodensity suggests small vessel disease. There are no findings to suggest acute dural sinus thrombosis or acute territorial infarct. There are no significant calvarial abnormalities. IMPRESSION: 1. No acute intracranial findings. 2. Study mildly compromised by motion artifact. Electronically signed by: Lionel Barrett M.D. 05/03/2018 5:17 PM ECG Data Attestation: I personally reviewed and interpreted this ECG as follows: Indication: altered mental status Rate (beats per minute): 81 Rhythm: normal sinus Findings: + LAFB; no PVC and no ST elevation Blood Pressure Blood Pressure Findings: Normal blood pressure Blood Pressure Disposition: did not require urgent referral MDM Narrative I did perform a limited focused review of portions of the patient's old chart on the electronic medical record. The patient had a MRI/MRA of brain which were unremarkable in 2017. I did evaluate the patient as noted above. I did obtain history from the nurse as well as the patient's due to his altered mental status. Repeat blood sugar was 135 here. IV access was established. The patient was placed on a continuous jewel inserter. I did order and personally review the patient's 12- lead EKG and chest x-ray as described above. His twelve-lead EKG does not demonstrate any acute ischemia. Chest x-ray does not show pneumonia. I did order and review the patient's blood work as noted in the electronic medical record. His white count is elevated. His creatinine is over 4 with a normal potassium. I did discuss this with the patient's who states that he has not been urinating as much recently. He was given normal saline IV. His blood pressure did not improve. He was initially slightly hypotensive. I did order a CT of the head. I did review the images myself as well as the radiology report as described above. There is no acute intracranial abnormality. I did discuss the test results with the patient's family and recommended hospitalization. I did discuss the case with the hospitalist and corrections caseworker. Impression & Plan Acute kidney injury, Altered mental status, Hypoglycemia Discharge Plan Visit Data *Final* Discharge Date/Time: 05/03/18 21:47 Chief Complaint: Confusion Stated Complaint: UNRESPONESIVE, HYPOTENTION ED Provider: Cholo Jose Discharge Problem: Acute kidney injury, Altered mental status, Hypoglycemia Patient Disposition: Admitted As Inpatient Discharge Instructions Interventions: ED Discharge Assessment Last Done: 05/03/18 21:47 Discharge Problem: Altered mental status Qualifiers: Altered mental status type: unspecified Qualified Code(s): R41.82 - Altered mental status, unspecified The janeenibe's documentation has been prepared under my direction and personally reviewed by me in its entirety. I confirm that the note above accurately reflects all work, treatment, procedures, and medical decision making performed by me.
[2018-05-04] MEDS ORDERED: INSULIN ASPART 100 UNITS/ML 3 ML PEN SC SCH ×3 (02:00→07:30)
[2018-05-04] MEDS ORDERED: DEXTROSE 50% 50 ML SYRINGE IV STA (02:30)
[2018-05-04] MEDS: SODIUM CHLORIDE 0.9% 1000ML 1,000 ML IV SCH ×2 (04:23→11:06)
[2018-05-04 06:34] LABS: Estimated Average Glucose 223 mg/dl; Hemoglobin A1C 9.4 % (4.5-5.6)
--- NOTE | 2018-05-04 08:10 | Nephrology Consultation ---
Date of Consultation May 04, 2018 Assessment & Plan (1) Renal failure: -renal insufficiency of unknown acuity and unknown baseline -presumably though pt w/ advanced baseline ckd would not be on hctz and lisinopril both -renal u/s w/o obstruction or celestina lesion; UA w/ ketones, markedly conc entrated, w/ glucosuria >> c/w prerenal process and tubular dysfunction -liver findings noted on u/s and liver enzymes pending; chemistries yesterday and anemia status were acceptable -cont NS current rate -f/u pending labs-further recs to follow depending on lab Present on Admission?: Yes History of Present Illness Reason for Consultation: renal insufficiency Requesting Physician: Dr Corona Attending Physician: Chris Green MD History of Present Illness 68 y/o M whom I'm asked to see for renal failure. He was admitted last evening for acute mental status changes and hypoglycemia. Concern also on presentation for sacral wound infection. PMH includes dm, htn on hctz/sienna, parkinson's disease and dementia, chronic low back pain on narcotics, chronic ambulatory dysfunction (primarily bedbound). Noted on presentation to have creatinine 4.5, SBP 100s. His BP meds were held and he was started on NS at 150 mL/hr and cefepime. Labs from this am show worsening creatinine at 4.7; little info about baseline renal function data. His states he had creatinine 1.7 in 03/2017 at [place] labs; was 1.1 in 2014. No nsaids. did have less uop on weekedn and gradually darker urine reports; also increasing cough on weekend (04/30- 05/01). follows w/ family practice in [place]. NO FH of CKD/ESRD. Allergies Allergy/AdvReac Type Severity Reaction Status Date / Time No Known Allergies Allergy Unverified 03/07/14 08:20 Home Medications Home Medications Medication Instructions Recorded Confirmed Type C,E,zinc,copper [id number] 1 cap PO DAILY 05/03/18 05/03/18 History [Ocuvite Adult 50 Plus] Narcan 4mg/0.1 1 dose PO UD PRN 05/03/18 05/03/18 History aspirin [Aspir-81] 81 mg PO DAILY 05/03/18 05/03/18 History carboxymethylcellulose-glycern 1 - 2 drp OPHTHALMIC (EYE) BID PRN 05/03/18 05/03/18 History [Refresh Repair] cholecalciferol (vitamin D3) 400 unit PO DAILY 05/03/18 05/03/18 History [Vitamin D3] cyanocobalamin (vitamin B-12) 500 mcg PO DAILY 05/03/18 05/03/18 History [Vitamin B-12] cyclobenzaprine 10 mg PO TID 05/03/18 05/03/18 History docusate sodium [Colace] 100 mg PO DAILY PRN 05/03/18 05/03/18 History gabapentin [Neurontin] 1,200 mg PO TID 05/03/18 05/03/18 History insulin regular hum U-500 conc 50 unit SUBCUT BID 05/03/18 05/03/18 History [Humulin R U-500 (Conc) Kwikpen] insulin regular hum U-500 conc 70 unit SUBCUT QAM 05/03/18 05/03/18 History [Humulin R U-500 (Conc) Kwikpen] lisinopril-hydrochlorothiazide 1 tab PO DAILY 05/03/18 05/03/18 History [Zestoretic] memantine-donepezil [Namzaric] 1 cap PO DAILY 05/03/18 05/03/18 History metformin [Glucophage] 1,000 mg PO BID 05/03/18 05/03/18 History multivitamin 1 tab PO DAILY 05/03/18 05/03/18 History oxycodone [OxyContin] 20 mg PO Q12 05/03/18 05/03/18 History oxycodone-acetaminophen [Percocet] 1 tab PO QID PRN 05/03/18 05/03/18 History propranolol 20 mg PO BID 05/03/18 05/03/18 History ropinirole 1 mg PO BID 05/03/18 05/03/18 History sennosides [senna] 8.6 mg PO BID PRN 05/03/18 05/03/18 History Patient History Medical History Mini stroke Dementia (Chronic) Parkinson's disease (Chronic) Diabetes (Chronic) Hypertension (Chronic) Surgical History History of hip replacement, total (Chronic) Hx of cholecystectomy (Chronic) Social History Communication Ability: Impaired Beliefs That Will Affect Care: None marital status: Current Living Situation: Spouse and Family Current Living Situation Comment: AND 3 CHILDREN Other Information That Helps Us Care for You: No Feels Safe at Home: Yes Safety Concerns: Feels Safe At This Time Smoking Status: Never smoker Hx Alcohol Use: No Hx Substance Use: No Review of Systems Constitutional: + fatigue and + weakness; no fever Eyes: no worsening vision Ear, Nose, Mouth, Throat: no ear pain, no sinus pain/pressure and no dry mouth Respiratory: + cough (thick productive dariel 04/30-05/01) Cardiovascular: no chest pain, no orthopnea and no edema Gastrointestinal: + early satiety (decreased po 04/30-05/01); no abdominal pain, no vomiting and no diarrhea/loose stools Genitourinary (Male): as per Subjective / HPI Musculoskeletal: + back pain (chronic and severe low back) Integumentary: + lesions (sacral area) Neurologic: as per Subjective / HPI Psychiatric: no behavioral changes Endocrine: + fatigue Hematologic / Lymphatic: no easy bleeding Physical Exam Vital Signs (Past 24 Hours): Last Vital Signs Temp 37.1 C 05/04/18 07:19 Pulse 83 05/04/18 07:19 Resp 18 05/04/18 07:19 BP 116/68 05/04/18 07:19 Pulse Ox 90 05/04/18 07:19 Constitutional: well developed and well nourished on 2L 02NC, answers appropriately w/ some delay and limited speech; thick cough in eval Eyes: EOM intact bilaterally ENMT: Ears: no external ear abnormality Nose: no external nose abnormality Mouth: + dry oral mucous membranes Neck: no nuchal rigidity Respiratory: normal respiratory effort Auscultation: + diminished lung sounds Cardiovascular: RRR, no murmur, no edema Gastrointestinal (Abdomen): Inspection/Auscultation: normal bowel sounds Percussion/Palpation: + abdomen tender (RUQ and LLQ abd pain w/ moderate palpation) and abdomen soft Musculoskeletal: Extremities: strength 5/5 throughout Skin: no rashes, warm and dry Neurologic: needs help to turn/ roll in bed, speaks simply /appropriately; spasms w/ moving/cogwheeling Psychiatric: Orientation: alert and oriented x 3 Affect: + flat affect Genitourinary: mart w/ yellow urine Results & Data Laboratory Results Abnormal lab results 05/03/18 05/03/18 05/03/18 Range/Units 16:32 16:32 16:38 WBC 13.39 H (4.8-10.8) K/uL RDW Std Deviation 49.4 H (36.4-46.3) fL Immature Gran # (Auto) 0.09 H (0.00-0.02) K/uL Neut # (Auto) 8.48 H (1.4-6.5) K/uL [place] # (Auto) 1.05 H (0.11-0.59) K/uL POC Chloride (101-112) mEq/L Chloride 95 L (98-107) mmol/L Carbon Dioxide 36 H (21-32) mmol/L POC Total CO2 (24-31) mEq/l POC BUN (7-18) mg/dl BUN 75 H (7-18) mg/dl Creatinine 4.49 H (0.6-1.4) mg/dl POC Creatinine (0.6-1.3) mg/dl Glucose 135 H (70-99) mg/dl POC Glucose 125 H (70-99) POC Glucose (other) (70-99) mg/dl Hemoglobin A1c (4.5-5.6) % POC Lactic Acid Aakash (0.90-1.70) mmol/L Albumin 3.0 L (3.4-5.0) gm/dl Globulin 4.9 H (2.5-4.0) gm/dl Albumin/Globulin Ratio 0.6 L (0.9-2) Urine Protein (Negative) Urine Glucose (UA) (Negative) Urine Ketones (Negative) Urine RBC (Auto) (0-4) /hpf U Hyaline Cast (Auto) (0-5) /lpf 05/03/18 05/03/18 05/03/18 Range/Units 16:43 16:46 17:00 WBC (4.8-10.8) K/uL RDW Std Deviation (36.4-46.3) fL Immature Gran # (Auto) (0.00-0.02) K/uL Neut # (Auto) (1.4-6.5) K/uL [place] # (Auto) (0.11-0.59) K/uL POC Chloride 93 L (101-112) mEq/L Chloride (98-107) mmol/L Carbon Dioxide (21-32) mmol/L POC Total CO2 33 H (24-31) mEq/l POC BUN 66 H (7-18) mg/dl BUN (7-18) mg/dl Creatinine (0.6-1.4) mg/dl POC Creatinine 4.2 H (0.6-1.3) mg/dl Glucose (70-99) mg/dl POC Glucose (70-99) POC Glucose (other) 135 H (70-99) mg/dl Hemoglobin A1c (4.5-5.6) % POC Lactic Acid Aakahs 2.66 H (0.90-1.70) mmol/L Albumin (3.4-5.0) gm/dl Globulin (2.5-4.0) gm/dl Albumin/Globulin Ratio (0.9-2) Urine Protein Trace H (Negative) Urine Glucose (UA) 1+ H (Negative) Urine Ketones Trace H (Negative) Urine RBC (Auto) 5-10 H (0-4) /hpf U Hyaline Cast (Auto) 5-10 H (0-5) /lpf 05/03/18 05/04/18 05/04/18 Range/Units 21:26 03:05 05:41 WBC (4.8-10.8) K/uL RDW Std Deviation (36.4-46.3) fL Immature Gran # (Auto) (0.00-0.02) K/uL Neut # (Auto) (1.4-6.5) K/uL [place] # (Auto) (0.11-0.59) K/uL POC Chloride (101-112) mEq/L Chloride (98-107) mmol/L Carbon Dioxide (21-32) mmol/L POC Total CO2 (24-31) mEq/l POC BUN (7-18) mg/dl BUN (7-18) mg/dl Creatinine (0.6-1.4) mg/dl POC Creatinine (0.6-1.3) mg/dl Glucose (70-99) mg/dl POC Glucose 120 H 102 H (70-99) POC Glucose (other) (70-99) mg/dl Hemoglobin A1c 9.4 H (4.5-5.6) % POC Lactic Acid Aakash (0.90-1.70) mmol/L Albumin (3.4-5.0) gm/dl Globulin (2.5-4.0) gm/dl Albumin/Globulin Ratio (0.9-2) Urine Protein (Negative) Urine Glucose (UA) (Negative) Urine Ketones (Negative) Urine RBC (Auto) (0-4) /hpf U Hyaline Cast (Auto) (0-5) /lpf 05/04/18 Range/Units 06:07 WBC (4.8-10.8) K/uL RDW Std Deviation (36.4-46.3) fL Immature Gran # (Auto) (0.00-0.02) K/uL Neut # (Auto) (1.4-6.5) K/uL [place] # (Auto) (0.11-0.59) K/uL POC Chloride (101-112) mEq/L Chloride (98-107) mmol/L Carbon Dioxide (21-32) mmol/L POC Total CO2 (24-31) mEq/l POC BUN (7-18) mg/dl BUN (7-18) mg/dl Creatinine (0.6-1.4) mg/dl POC Creatinine (0.6-1.3) mg/dl Glucose (70-99) mg/dl POC Glucose 140 H (70-99) POC Glucose (other) (70-99) mg/dl Hemoglobin A1c (4.5-5.6) % POC Lactic Acid Aakash (0.90-1.70) mmol/L Albumin (3.4-5.0) gm/dl Globulin (2.5-4.0) gm/dl Albumin/Globulin Ratio (0.9-2) Urine Protein (Negative) Urine Glucose (UA) (Negative) Urine Ketones (Negative) Urine RBC (Auto) (0-4) /hpf U Hyaline Cast (Auto) (0-5) /lpf Diagnostic Findings renal u/s > 1. The kidneysare normal in size and without hydronephrosis. 2. The bladder was decompressed around a Mart catheter and could not be evaluated. 3. Hepatomegaly and hepatic steatosis. cxr 1. Cardiomegaly without radiographic evidence of congestive failure. 2. Bibasilar atelectasis with no airspace consolidation or large pleural effusion identified. Head CT no acute i-c findings (1) Renal failure Renal failure chronicity: unspecified chronicity Qualified Code(s): N19 - Unspecified kidney failure
[2018-05-04 08:17] LABS: Basophils # (auto) 0.09 K/uL (0-0.2); Basophils % (auto) 0.8 %; Eosinophils # (auto) 0.27 K/uL (0-0.5); Eosinophils % (auto) 2.4 %; Hematocrit (blood only) 42.5 % (42-52); Hemoglobin 13.3 g/dL (14.0-18.0); Immature Granulocytes # (auto) 0.07 K/uL (0.00-0.02); Immature Granulocytes % (auto) 0.6 %; Lymphocytes # (auto) 3.68 K/uL (1.2-3.4); Lymphocytes % (auto) 32.1 %; Mean Corpuscular Volume 95.3 fL (80-100); Mean Platelet Volume 10.6 fL (7.4-10.4); Monocytes # (auto) 0.96 K/uL (0.11-0.59); Monocytes % (auto) 8.4 %; Neutrophils % (auto) 55.7 %; Platelet Count 181 K/uL (130-400); RDW Standard Deviation 48.4 fL (36.4-46.3); Red Blood Count 4.46 M/uL (4.7-6.1); White Blood Count 11.47 K/uL (4.8-10.8)
[2018-05-04 08:18] LABS: Mean Corpuscular Hgb Conc 31.3 g/dL (32-36)
[2018-05-04] MEDS ORDERED: INSULIN GLARGINE SOLOSTAR 100 UNITS/ML 3 ML PEN SC ONE (09:00)
[2018-05-04 09:04] LABS: Albumin Globulin Ratio 0.7 (0.9-2); Albumin Level 2.6 gm/dl (3.4-5.0); BUN Creatinine Ratio 16.6 (10-20); Bilirubin,Total 0.3 mg/dl (0.2-1); Calcium 8.1 mg/dl (8.5-10.1); Creatinine Clr Calc Pharmacy 19.4 ml/min; Est GFR (African American) 13.5; Est GFR (Non-African American) 11.7; Globulin 3.9 gm/dl (2.5-4.0); Potassium 4.5 mmol/L (3.5-5.1); Total Protein 6.5 gm/dl (6.4-8.2)
[2018-05-04] MEDS: ROPINIROLE HCL 1 MG TABLET PO SCH ×2 (09:50→20:58)
[2018-05-04] MEDS: GABAPENTIN 100 MG CAP PO SCH ×3 (09:50→20:59)
[2018-05-04] MEDS: INSULIN ASPART 100 UNITS/ML 3 ML PEN SC SCH ×4 (09:53→20:53)
[2018-05-04] MEDS: DOXYCYCLINE HYCLATE 100 MG in DEXTROSE 5% 100 ML IV SCH ×2 (11:05→22:39)
--- NOTE | 2018-05-04 14:54 | Hospitalist Progress Note ---
Date of Service May 04, 2018 Assessment & Plan (1) Acute renal failure: -Patient's family brought outpatient labs from March 2018 with creatinine 1.2 and GFR as 64 -on admission on 05/03/18 the creatinine is 4.49, on IV fluids, creatinine is 4.7 on 05/04/18, continue IV fluids -avoid lisinopril and HCTZ -The kidneys are normal in size and without hydronephrosis on renal ultrasound -nephrology consultation service is following the patient -monitoring urine output with mart (2) Poor appetite: patient's is presumed on admission to have poor appetite from acute illness currently have been on doxycycline IV for possible bronchitis and cefepime IV for open sacral decubitus wounds mostly stage II with surrounding erythema however patient has been afebrile to date blood culture are pending urine cultures are pending Deep Wound Culture of sacral ulcer of Streptococcus species with Sensitivities Dependent on Further Identification and Low Counts of Probable Skin Edwina, and also Coag negative Staphylococcus if patient's blood cultures return as negative then will plan on de-escalating antibiotics will need wound care and repositioning as per nursing protocols for the sacral ulcer (3) Altered mental status: Likely metabolic encephalopathy secondary to hypoglycemia, acute renal failure, in the setting of narcotic and multiple medication use -currently mental status is baseline as of 05/04/18 History of Parkinson's disease with Dementia -as per patient's -and that at baseline patient is generally bed ridden -will get PT/OT evaluations while in the hospital (4) Diabetes type 2 with atherosclerosis of arteries of extremities: Patient presented with hypoglycemia likely secondary to acute renal failure in the setting of poor oral intake, insulin use, and possible underlying infection pharmacy glycemic control service consulted (5) Hypertension: avoid lisinopril and HCTZ to prevent worsening changes in renal function will start on amlodipine 5 mg daily for blood pressure control instead and to start as 5 mg daily (6) Low back pain: chronic low back pain and treated as outpatient with narcotic pain medications [place] PDMP was checked and patient had 30 day supply of Oxycontin ER 20 mg tablet filled on 04/07/18 and 30 day supply of Oxycodone/Acetaminophen (5mg/325mg) filled on 04/12/18 will resume Oxycodone/Acetaminophen (5mg/325mg) as every 6 hours as needed for moderate pain will place on scheduled but reduced doses of oxycodone as 5 mg q12 hours to avoid sedation (7) DVT prophylaxis: Heparin subcutaneous q12 hours (8) Discharge planning issues: Patient's am [phone] Patient's Primary Care provider: Lee Martinez at [address] [place] [address], phone [phone]; Subjective Patient seen and examined earlier today at bedside with patient's earlier today. We discussed about the acute kidney injury on this hospital stay. Patient making urine into the mart. He denies of having burning sensation when urinating. Examined the sacral ulcer which appears to be clean based. Patient required assistance for nursing staff to turn and sit up. Patient able to move extremities. Patient denies chest pain or abdominal pain Physical Exam Vital Signs (Past 24 Hours): Last Vital Signs Temp 37.4 C 05/04/18 11:18 Pulse 92 H 05/04/18 11:18 Resp 18 05/04/18 11:18 BP 119/63 05/04/18 11:18 Pulse Ox 94 05/04/18 11:18 Physical Exam: General- not in distress, verbal and responsive to questions Head- atraumatic Eyes- PERRL, EOMI, anicteric ENT- oropharynx clear Neck- supple, no JVD, no adenopathy, no thyromegaly; carotids +2/2, no bruits appreciated Lungs-clear to auscultation bilaterally, no wheezing Heart- normal rate, regular rhythm; no murmur Abdomen- normal bowel sounds, nondistended, soft, nontender, no masses or hepatosplenomegaly Buttocks-positive open sacral decubitus wounds mostly stage II with surrounding erythema Neuro/Extremities- no pretibial edema, no calf tenderness; Patient required assistance for nursing staff to turn and sit up. Patient able to move extremities. :making urine into the mart
[2018-05-04] MEDS ORDERED: OXYCODONE/ACETAMINOPHEN 5mg/325mg TAB PO PRN (15:04)
--- NOTE | 2018-05-04 15:13 | Pharmacy Report ---
Glycemic Control Consultation - Date of Service May 04, 2018 - Scope Scope: Glycemic Pharmacist consulted by Dr Corona on 05/03/18 for glycemic control and to write orders per [facility] inpatient glycemic control protocol - Objective Weight: 114.6 kg Accuchecks BSG (last 24hrs): 05/03/18 05/03/18 05/03/18 16:32 16:38 16:46 Glucose 135 H POC Glucose 125 H POC Glucose (other) 135 H 05/03/18 05/04/18 05/04/18 21:26 02:00 03:05 Glucose POC Glucose 120 H 80 102 H POC Glucose (other) 05/04/18 05/04/18 05/04/18 05:41 06:07 07:24 Glucose 122 H POC Glucose 140 H 125 H POC Glucose (other) 05/04/18 11:08 Glucose POC Glucose 178 H POC Glucose (other) Laboratory Data (last 24hrs): 05/03/18 05/04/18 16:32 05:41 Potassium 4.1 4.5 Carbon Dioxide 36 H 31 Anion Gap 6.0 5.0 Creatinine 4.49 H 4.71 H* Est Cr Clr Drug Dosing 20.2 19.4 HbA1c: Hemoglobin A1c 9.4 % (4.5-5.6) H 05/04/18 05:41 - Recent Pertinent Medications Outpatient Anti-diabetic Regimen: * Humulin R U500: 70 units QAM, 50 units daily at 1400 and 2200. * A1c = 9.4% % on 05/04/18 The patient is currently receiving: * Basal insulin: Lantus 20 units x 1 dose this AM * Correctional Insulin: Novolog Correction per scale ACHS Goal Range: Low 120 mg/dL - High 160 mg/dL Correction Factor: 20 mg/dL/unit * Prandial insulin: Per carb ratio of 1 unit per 8 grams CHO consumed * Oral Agents: Metformin 1 gm BID Risk Factors for Insulin Resistance: * Steroids: none * Infection: on Doxy + Cefepime * IVF: NS @ 150 cc/hr * Diet: Clear liquid diet - Assessment & Plan Assessment & Plan: ASSESSMENT: * 68 y/o M admitted with hypoglycemia and BRANDYN. Patient was managed on Humulin R U 500 TID and Metformin at home for his Type 2 Diabetes. * Pharmacy is consulted for in-patient glycemic control. * Patient has been ordered a clear liquid diet and is not eating very well. * Patient has not received any Novolog doses so far since his BSGs have been either below goal range, or in range or close to being in range. * Lantus dose at HS today ordered based on a scale. PLAN FOR INPATIENT GLYCEMIC CONTROL: * Holding outpatient oral diabetes med - Metformin * Basal insulin * Lantus 20 units x 1 given this AM. * Lantus for HS today based on scale: BSG less than 110 = 0 units, 110 - 140 = 15 units, 140- 180 = 20 units, greater than 180 = 25 units. * Bolus insulin * NovoLog per scale ACHS or Q6hrs while NPO * Goal Range: Low 120 mg/dL - High 160 mg/dL * Correction Factor: 20 mg/dL/unit * Nutritional / Prandial insulin per carb ratio of 1 unit per 8 grams CHO consumed * Please note that the plan above was derived based on current level of insulin resistance and hospital stress. These recommendations are appropriate for inpatient admission only. Plan of care upon discharge will need to be reassessed to avoid potential outpatient hypo/hyperglycemia. Thank you.
[2018-05-04] MEDS ORDERED: AMLODIPINE BESYLATE 5 MG TAB PO SCH (15:15)
[2018-05-04 16:08] LABS: INR 1.1 (0.9-1.1); Prothrombin Time 11.2 Seconds (9.0-12.0)
[2018-05-04] MEDS: OXYCODONE HCL 10 MG TABCR (OXYCONTIN) PO SCH (18:03)
[2018-05-04] MEDS: HEPARIN SOD 5,000 UNIT/0.5 ML VIAL SQ SCH (20:59)
[2018-05-04] MEDS ORDERED: INSULIN GLARGINE SOLOSTAR 100 UNITS/ML 3 ML PEN SC SCH (21:00)
[2018-05-04] MEDS ORDERED: CEFEPIME 1,000 MG in SYRINGE 0 ML IV SCH (22:00)
[2018-05-05] MEDS: OXYCODONE HCL 10 MG TABCR (OXYCONTIN) PO SCH ×2 (05:53→18:05)
--- NOTE | 2018-05-05 06:42 | Nephrology Progress Note ---
Date of Service May 05, 2018 Assessment & Plan (1) Renal failure: -renal insufficiency of unknown acuity and unknown baseline; presume baseline creatinine about 1.2 << ideally would have more than one data point for review -renal u/s w/o obstruction or celestina lesion; UA w/ ketones, markedly concentrated, w/ glucosuria >> c/w prerenal process and tubular dysfunction -cont to hold hctz and lisinopril -bp acceptable off of ivf >>>creatinine stable 4.4 and chemistries/volume status ok >>>repest CXR given hypoxia ordered for 05/06 am -use lasix prn resp distress for now; agree w/ dose today given hypoxia Subjective seen on rounds this am 0725 > no particular complaints; ongoing cough; decreased po; pain controlled when I saw him; no f/c; mart not bothering him. at bedside. note he had dose of lasix this am; has OP labs 03/2018 w/ sCreat 1.2 Physical Exam Vital Signs (Past 24 Hours): Last Vital Signs Temp 36.9 C 05/05/18 00:54 Pulse 89 05/05/18 00:54 Resp 20 05/05/18 00:54 BP 126/64 05/05/18 00:54 Pulse Ox 95 05/05/18 00:54 Constitutional: well developed and well nourished on 02nc 4L, interacive today to a point/ one word/phrase; can joke; still thick cough during eval Eyes: EOM intact bilaterally ENMT: Ears: no external ear abnormality Nose: no external nose abnormality Mouth: + dry oral mucous membranes Neck: no nuchal rigidity Respiratory: normal respiratory effort Auscultation: + diminished lung sounds and + rhonchi (heavy BL bases) Cardiovascular: RRR, no murmur, no edema Gastrointestinal (Abdomen): Inspection/Auscultation: normal bowel sounds Percussion/Palpation: abdomen soft; abdomen nontender Musculoskeletal: Extremities: strength 5/5 throughout Skin: no rashes, warm and dry Neurologic: some cogwheeling/spasticity w/ exam maneuvers Psychiatric: Orientation: alert and oriented x 3 Affect: + flat affect Genitourinary: mart Results & Data Laboratory Results Abnormal lab results 05/04/18 05/05/18 05/05/18 Range/Units 20:31 07:40 07:40 RBC 4.01 L (4.7-6.1) M/uL Hgb 11.8 L (14.0-18.0) g/dL Hct 37.0 L (42-52) % MCHC 31.9 L (32-36) g/dL RDW Std Deviation 46.6 H (36.4-46.3) fL Immature Gran # (Auto) 0.06 H (0.00-0.02) K/uL [place] # (Auto) 0.76 H (0.11-0.59) K/uL BUN 77 H (7-18) mg/dl Creatinine 4.43 H (0.6-1.4) mg/dl Glucose 175 H (70-99) mg/dl POC Glucose 206 H (70-99) Calcium 8.0 L (8.5-10.1) mg/dl Albumin 2.5 L (3.4-5.0) gm/dl Albumin/Globulin Ratio 0.6 L (0.9-2) 05/05/18 05/05/18 05/05/18 Range/Units 08:19 11:46 16:54 RBC (4.7-6.1) M/uL Hgb (14.0-18.0) g/dL Hct (42-52) % MCHC (32-36) g/dL RDW Std Deviation (36.4-46.3) fL Immature Gran # (Auto) (0.00-0.02) K/uL [place] # (Auto) (0.11-0.59) K/uL BUN (7-18) mg/dl Creatinine (0.6-1.4) mg/dl Glucose (70-99) mg/dl POC Glucose 176 H 286 H 235 H (70-99) Calcium (8.5-10.1) mg/dl Albumin (3.4-5.0) gm/dl Albumin/Globulin Ratio (0.9-2) (1) Renal failure Renal failure chronicity: unspecified chronicity Qualified Code(s): N19 - Unspecified kidney failure
[2018-05-05 08:02] LABS: Basophils # (auto) 0.03 K/uL (0-0.2); Basophils % (auto) 0.4 %; Eosinophils # (auto) 0.27 K/uL (0-0.5); Eosinophils % (auto) 3.5 %; Hemoglobin 11.8 g/dL (14.0-18.0); Immature Granulocytes # (auto) 0.06 K/uL (0.00-0.02); Immature Granulocytes % (auto) 0.8 %; Lymphocytes # (auto) 2.26 K/uL (1.2-3.4); Mean Corpuscular Hgb Conc 31.9 g/dL (32-36); Mean Corpuscular Volume 92.3 fL (80-100); Mean Platelet Volume 9.2 fL (7.4-10.4); Monocytes # (auto) 0.76 K/uL (0.11-0.59); Monocytes % (auto) 9.7 %; Neutrophils # (auto) 4.42 K/uL (1.4-6.5); Neutrophils % (auto) 56.6 %; Platelet Count 178 K/uL (130-400); RDW Coefficient of Variation 13.7 % (11.5-14.5); RDW Standard Deviation 46.6 fL (36.4-46.3); Red Blood Count 4.01 M/uL (4.7-6.1)
[2018-05-05] MEDS: INSULIN ASPART 100 UNITS/ML 3 ML PEN SC SCH ×4 (08:24→21:15)
[2018-05-05] MEDS: HEPARIN SOD 5,000 UNIT/0.5 ML VIAL SQ SCH ×2 (08:24→21:14)
[2018-05-05] MEDS: ROPINIROLE HCL 1 MG TABLET PO SCH ×2 (08:24→21:14)
[2018-05-05 08:30] LABS: Albumin Level 2.5 gm/dl (3.4-5.0); BUN Creatinine Ratio 17.4 (10-20); Creatinine Clr Calc Pharmacy 20.6 ml/min; Est GFR (African American) 14.6; Est GFR (Non-African American) 12.6; Potassium 4.4 mmol/L (3.5-5.1)
[2018-05-05 08:33] LABS: Albumin Globulin Ratio 0.6 (0.9-2); Bilirubin,Total 0.4 mg/dl (0.2-1); Globulin 3.9 gm/dl (2.5-4.0); Total Protein 6.4 gm/dl (6.4-8.2)
[2018-05-05] MEDS: DOXYCYCLINE HYCLATE 100 MG in DEXTROSE 5% 100 ML IV SCH (10:04)
[2018-05-05] MEDS: INSULIN GLARGINE SOLOSTAR 100 UNITS/ML 3 ML PEN SC SCH ×2 (10:50→21:14)
--- NOTE | 2018-05-05 10:59 | XRay Report ---
XR chest 1V portable HISTORY: Shortness of breath. COMPARISON: Chest 05/03/2018. FINDINGS: No pneumothorax. The heart remains enlarged. There is mild central pulmonary vascular conge stion without overt edema. There are low lung volumes. Bibasilar densities/effusion persists. IMPRESSION: 1. Cardiomegaly with mild central pulmonary vascular congestion. 2. Bibasilar densities/effusions persist. Electronically signed by: Edwar Perez M.D. 05/05/2018 10:58 AM
--- NOTE | 2018-05-05 11:25 | Pharmacy Report ---
Pharmacy Glycemic Short Note 2 - Date of Service May 05, 2018 - Glycemic Short BSG Results (Last 24 hours): 05/04/18 05/04/18 05/04/18 11:08 16:13 20:31 Glucose POC Glucose 178 H 231 H 206 H 05/05/18 05/05/18 07:40 08:19 Glucose 175 H POC Glucose 176 H OUTPATIENT ANTIDIABETIC REGIMEN: * Humulin R U-500 insulin, 70 units qAm and 50 units daily at 1400 and 2200 * 170 units per day * Metformin 1000mg PO BID * HbA1c: 9.4% (05/04/18) ASSESSMENT: * Mr Camarena is a 68yo diabetic male admitted 05/03 with hypoglycemia and significant acute renal failure (SCr 4.49, baseline ?1.7). * Suspect that hypoglycemia was due to a decreased appetite and also a significant change in insulin needs in the setting of severe ARF. * Patient was transitioned to Lantus/Novolog during admission. * Basal insulin was increased this morning and Novolog parameters were tightened, d/t some hyperglycemia yesterday. Will continue to adjust regimen as needed. PLAN FOR INPATIENT GLYCEMIC CONTROL: * Hold outpatient oral diabetes medications * Basal insulin * Lantus 30 units SQ BID * Bolus insulin * NovoLog per scale ACHS plus 00 and 04 checks to provide additional coverage overnight if needed (until insulin needs are more clear in the setting of ARF) * Goal Range: Low 120 mg/dL - High 160 mg/dL * Correction Factor: 15 mg/dL/unit * Nutritional / Prandial insulin per carb ratio of 1 unit per 5 grams CHO consumed PLAN FOR DISCHARGE: * Pending renal function changes during admission. * Patient may not be able to resume Metformin on discharge if renal function remains poor. * Patient's A1c (9.4%) indicates poor glycemic control as an outpatient, and patient should f/u with PCP promptly after discharge to develop a plan to optimize A1c.
[2018-05-05] MEDS ORDERED: FUROSEMIDE 40 MG in SYRINGE 0 ML IV ONE (13:30)
[2018-05-05] MEDS ORDERED: POLYETHYLENE (MIRALAX) 17 GM PACK PO PRN (16:09)
--- NOTE | 2018-05-05 17:29 | Hospitalist Progress Note ---
Date of Service May 05, 2018 Assessment & Plan (1) Acute renal failure: -Patient's family brought outpatient labs from March 2018 with creatinine 1.2 and GFR as 64 -on admission on 05/03/18 the creatinine is 4.49, then was on IV fluids and creatinine porsche 4.7 on 05/04/18, -IV fluids was stopped by nephrology service on 05/04/18 eveneing as patient was having net positive fluid intake -creatinine is 4.43 on 05/05/18 AM which is slightly better; received Lasix 40 mg x 1 to see if this can reduce cough and increase the urine output -monitoring urine output with mart (2) Poor appetite: patient's is presumed on admission to have poor appetite from acute illness wad from admission to 05/05/18 on doxycycline IV for possible bronchitis and cefepime IV for open sacral decubitus wounds mostly stage II with surrounding erythema however patient has been afebrile to date Deep Wound Culture of sacral ulcer of Streptococcus species with Sensitivities Dependent on Further Identification and Low Counts of Probable Skin Edwina, and also Coag negative Staphylococcus will need wound care and repositioning as per nursing protocols for the sacral ulcer urine cultures negative admission blood culture are negative and patient transitioned on 05/05/18 to oral doxycycline 100 mg BID and Amoxicillin renally dosed as 500 mg q12 hours (3) Altered mental status: Likely metabolic encephalopathy secondary to hypoglycemia, acute renal failure, in the setting of narcotic and multiple medication use -currently mental status is baseline as of 05/04/18 History of Parkinson's disease with Dementia -as per patient's -and that at baseline patient is generally bed ridden -PT/OT evaluations while in the hospital (4) Diabetes type 2 with atherosclerosis of arteries of extremities: Patient presented with hypoglycemia likely secondary to acute renal failure in the setting of poor oral intake, insulin use, and possible underlying infection pharmacy glycemic control service consulted (5) Hypertension: avoid lisinopril and HCTZ to prevent worsening changes in renal function nephrology service advised avoiding all antihypertensives for now (6) Low back pain: chronic low back pain and treated as outpatient with narcotic pain medications [place] PDMP was checked and patient had 30 day supply of Oxycontin ER 20 mg tablet filled on 04/07/18 and 30 day supply of Oxycodone/Acetaminophen (5mg/325mg) filled on 04/12/18 resume Oxycodone/Acetaminophen (5mg/325mg) as every 6 hours as needed for moderate pain scheduled but reduced doses of oxycodone as 5 mg q12 hours to avoid sedation (7) DVT prophylaxis: Heparin subcutaneous q12 hours (8) Discharge planning issues: Patient's am [phone] Patient's Primary Care provider: Lee Martinez at [address] [place] [address], phone [phone]; Subjective Patient denies acute distress. On nasal cannula with some non productive cough. Patient did not have fever. Continues to make urine into mart but has been having net positive urine output. he received Lasix 40 mg x 1 to see if this can reduce cough and increase the urine output Physical Exam Vital Signs (Past 24 Hours): Last Vital Signs Temp 37.1 C 05/05/18 14:56 Pulse 90 05/05/18 14:56 Resp 16 05/05/18 14:56 BP 136/67 05/05/18 14:56 Pulse Ox 93 05/05/18 14:56 Physical Exam: General- not in distress, verbal and responsive to questions Head- atraumatic Eyes- PERRL, EOMI, anicteric ENT- oropharynx clear Neck- supple, no JVD, no adenopathy, no thyromegaly; carotids +2/2, no bruits appreciated Lungs-clear to auscultation bilaterally, no wheezing Heart- normal rate, regular rhythm; no murmur Abdomen- normal bowel sounds, nondistended, soft, nontender, no masses or hepatosplenomegaly Buttocks- deferred Neuro/Extremities- no pretibial edema, no calf tenderness; :making urine into the mart
[2018-05-05] MEDS: SENNA 8.6 MG TAB PO SCH (17:56)
[2018-05-05] MEDS: AMOXICILLIN 500 MG CAP PO SCH (21:13)
[2018-05-05] MEDS: DOXYCYCLINE HYCLATE 100 MG CAP PO SCH (21:13)
[2018-05-06] MEDS: INSULIN ASPART 100 UNITS/ML 3 ML PEN SC SCH ×6 (00:34→21:11)
[2018-05-06] MEDS: OXYCODONE HCL 10 MG TABCR (OXYCONTIN) PO SCH ×2 (05:38→18:46)
[2018-05-06 07:00] LABS: Hematocrit (blood only) 40.7 % (42-52); Hemoglobin 13.7 g/dL (14.0-18.0); Mean Corpuscular Hgb Conc 33.7 g/dL (32-36); Mean Corpuscular Volume 90.6 fL (80-100); Mean Platelet Volume 9.2 fL (7.4-10.4); Platelet Count 212 K/uL (130-400); RDW Coefficient of Variation 13.4 % (11.5-14.5); Red Blood Count 4.49 M/uL (4.7-6.1)
--- NOTE | 2018-05-06 07:18 | XRay Report ---
XR chest 1V portable CLINICAL HISTORY: ongoing hypoxia, thick cough -check volume status dyspnea COMPARISON STUDY: 05/05/2018 FINDINGS: Mild stable cardiomegaly. Platelike atelectasis of the lung bases with lung basilar aeratio n slightly improved on left. Mid and upper lungs are considered clear. IMPRESSION: Mild stable cardiomegaly. Slight improvement in aeration left base. The above report was generated using voice recognition software. It may contain grammatical, syntax or spelling errors. Electronically signed by: Dayne Cannon M.D. 05/06/2018 7:17 AM
[2018-05-06 07:42] LABS: BUN Creatinine Ratio 20.2 (10-20); Calcium 8.9 mg/dl (8.5-10.1); Creatinine Clr Calc Pharmacy 32.2 ml/min; Est GFR (Non-African American) 21.6; Potassium 4.4 mmol/L (3.5-5.1)
[2018-05-06 08:06] LABS: ALC (manual) 1.27 K/uL (1.2-3.4); Eosinophils # (manual) 0.27 K/uL (0-0.5); Eosinophils % (manual) 3.5 %; Lymphocytes # (manual) 1.27 K/uL (1.2-3.4); Lymphocytes % (manual) 16.5 %; Metamyelocytes # (manual) 0.07 K/uL (0-0); Metamyelocytes % (manual) 0.9 %; Monocytes # (manual) 0.13 K/uL (0.11-0.59); Monocytes % (manual) 1.7 %; Myelocytes # (manual) 0.13 K/uL (0-0); Myelocytes % (manual) 1.7 %; Neutrophils % (manual) 75.7 %; RBC Morphology Unremarkable
[2018-05-06] MEDS ORDERED: AMLODIPINE BESYLATE 5 MG TAB PO SCH (09:00)
[2018-05-06] MEDS: AMOXICILLIN 500 MG CAP PO SCH ×2 (10:15→20:56)
[2018-05-06] MEDS: DOXYCYCLINE HYCLATE 100 MG CAP PO SCH ×2 (10:15→20:57)
[2018-05-06] MEDS: HEPARIN SOD 5,000 UNIT/0.5 ML VIAL SQ SCH ×2 (10:15→21:12)
[2018-05-06] MEDS: ROPINIROLE HCL 1 MG TABLET PO SCH ×2 (10:16→20:57)
[2018-05-06] MEDS: NAMZARIC PO SCH (10:16)
[2018-05-06] MEDS: SENNA 8.6 MG TAB PO SCH (10:16)
[2018-05-06] MEDS: INSULIN GLARGINE SOLOSTAR 100 UNITS/ML 3 ML PEN SC SCH ×2 (10:17→21:10)
--- NOTE | 2018-05-06 10:53 | Pharmacy Report ---
Pharmacy Glycemic Short Note 2 - Date of Service May 06, 2018 - Glycemic Short BSG Results (Last 24 hours): 05/05/18 05/05/18 05/05/18 11:46 16:54 20:36 Glucose POC Glucose 286 H 235 H 267 H 05/06/18 05/06/18 05/06/18 00:31 04:28 06:31 Glucose 242 H POC Glucose 263 H 225 H 05/06/18 07:52 Glucose POC Glucose 238 H OUTPATIENT ANTIDIABETIC REGIMEN: * Humulin R U-500 insulin, 70 units qAm and 50 units daily at 1400 and 2200 * 170 units per day * Metformin 1000mg PO BID * HbA1c: 9.4% (05/04/18) ASSESSMENT: 05/06/18: * Mr Camarena's renal function has improved markedly since yesterday (SCr 4.4 --> 2.8). * Insulin needs are increasing as renal function improves. Baseline SCr is likely ~1.2 * Lantus dose was increased this morning and Novolog parameters were tightened. Will continue to titrate up to patient's previous outpatient needs as renal function approaches baseline. 05/05/18 * Mr Camarena is a 68yo diabetic male admitted 05/03 with hypoglycemia and si gnificant acute renal failure (SCr 4.49, baseline ?1.7). * Suspect that hypoglycemia was due to a decreased appetite and also a significant change in insulin needs in the setting of severe ARF. * Patient was transitioned to Lantus/Novolog during admission. * Basal insulin was increased this morning and Novolog parameters were tightened, d/t some hyperglycemia yesterday. Will continue to adjust regimen as needed. PLAN FOR INPATIENT GLYCEMIC CONTROL: * Hold outpatient oral diabetes medications * may consider resuming metformin if renal function improves to baseline * Basal insulin * Lantus 40 units SQ BID * Bolus insulin * NovoLog per scale ACHS plus 00 and 04 checks to provide additional coverage overnight (until renal function stabilizes) * Goal Range: Low 120 mg/dL - High 160 mg/dL * Correction Factor: 10 mg/dL/unit * Nutritional / Prandial insulin per carb ratio of 1 unit per 4 grams CHO consumed PLAN FOR DISCHARGE: * Pending renal function changes during admission. * Patient may not be able to resume Metformin on discharge if renal function remains poor. * Patient's A1c (9.4%) indicates poor glycemic control as an outpatient, and patient should f/u with PCP promptly after discharge to develop a plan to optimize A1c.
--- NOTE | 2018-05-06 16:57 | Hospitalist Progress Note ---
Date of Service May 06, 2018 Assessment & Plan (1) Acute renal failure: -Patient's family brought outpatient labs from March 2018 with creatinine 1.2 and GFR as 64 -on admission on 05/03/18 the creatinine is 4.49, then was on IV fluids and creatinine porsche 4.7 on 05/04/18, -IV fluids was stopped by nephrology service on 05/04/18 eveneing as patient was having net positive fluid intake -creatinine is 4.43 on 05/05/18 AM which is slightly better; received Lasix 40 mg x 1 to see if this can reduce cough and increase the urine output -creatinine 2.83 on AM of 05/06/18 and patient achieved net negative output, mart has been removed but awaiting for patient to urinate without mart (2) Poor appetite: patient's is presumed on admission to have poor appetite from acute illness wad from admission to 05/05/18 on doxycycline IV for possible bronchitis and cefepime IV for open sacral decubitus wounds mostly stage II with surrounding erythema however patient has been afebrile to date Deep Wound Culture of sacral ulcer of Streptococcus species with Sensitivities Dependent on Further Identification and Low Counts of Probable Skin Edwina, and also Coag negative Staphylococcus will need wound care and repositioning as per nursing protocols for the sacral ulcer urine cultures negative admission blood culture are negative and patient transitioned on 05/05/18 to oral doxycycline 100 mg BID and Amoxicillin renally dosed as 500 mg q12 hours continue oral antibiotics for now (3) Altered mental status: Likely metabolic encephalopathy secondary to hypoglycemia, acute renal failure, in the setting of narcotic and multiple medication use -currently mental status is baseline as of 05/04/18 History of Parkinson's disease with Dementia -as per patient's -and that at baseline patient is generally bedridden -PT/OT evaluations while in the hospital (4) Diabetes type 2 with atherosclerosis of arteries of extremities: Patient presented with hypoglycemia likely secondary to acute renal failure in the setting of poor oral intake, insulin use, and possible underlying infection pharmacy glycemic control service consulted (5) Hypertension: avoid lisinopril and HCTZ to prevent worsening changes in renal function have discussed with Dr. Miller from nephrology about using amlodipine for blood pressure control and she agrees (6) Low back pain: chronic low back pain and treated as outpatient with narcotic pain medications [place] PDMP was checked and patient had 30 day supply of Oxycontin ER 20 mg tablet filled on 04/07/18 and 30 day supply of Oxycodone/Acetaminophen (5mg/325mg) filled on 04/12/18 resume Oxycodone/Acetaminophen (5mg/325mg) as every 6 hours as needed for moderate pain scheduled but reduced doses of oxycodone as 5 mg q12 hours to avoid sedation (7) DVT prophylaxis: Heparin subcutaneous q12 hours (8) Discharge planning issues: Patient's am [phone] Patient's Primary Care provider: Lee Martinez at [address] [place] [address], phone [phone]; Subjective creatinine 2.83 on AM of 05/06/18 and patient achieved net negative output, mart has been removed but awaiting for patient to urinate without mart Patient's breathing sounds better today and less cough. Patient denies acute pain. no chest pain, no abdominal pain, no vomiting Physical Exam Vital Signs (Past 24 Hours): Last Vital Signs Temp 36.2 C L 05/06/18 15:27 Pulse 103 H 05/06/18 15:27 Resp 20 05/06/18 15:27 BP 124/77 05/06/18 15:27 Pulse Ox 95 05/06/18 15:27 Physical Exam: General- not in distress, verbal and responsive to questions Head- atraumatic Eyes- PERRL, EOMI, anicteric ENT- oropharynx clear Neck- supple, no JVD, no adenopathy, no thyromegaly; carotids +2/2, no bruits appreciated Lungs-clear to auscultation bilaterally, no wheezing Heart- normal rate, regular rhythm; no murmur Abdomen- normal bowel sounds, nondistended, soft, nontender, no masses or hepatosplenomegaly Buttocks- deferred Neuro/Extremities- no pretibial edema, no calf tenderness;
--- NOTE | 2018-05-06 19:30 | Nephrology Progress Note ---
Date of Service May 06, 2018 Assessment & Plan (1) Renal failure: -renal insufficiency of unknown acuity and unknown baseline; presume baseline creatinine about 1.2 << ideally would have more than one data point for review -renal u/s w/o obstruction or celestina lesion; UA w/ ketones, markedly concentrated, w/ glucosuria >> c/w prerenal process and tubular dysfunction >> early ATN -cont to hold hctz and lisinopril -bp acceptable off of ivf -creatinine much improved today (4.4>2.3) and chemistries/volume status ok; CXR w/o vol OL or infiltrate -for d/c sometime this weekend; consider sending him out on lasix 40 mg bid17 or similar -- needs it more for volume than for bp control; agree w/ f/u in CKD clinic as scheduled 05/09 or move later as needed Subjective seen on late day rounds. creatinine improved today; mart out now > 4 hrs and no void yet. no sob; no edema. some issues swallowing pills this evening; less frequent cough and 02 needs present still but down; was OOB today; had a lasix dose yesterday Physical Exam Vital Signs (Past 24 Hours): Last Vital Signs Temp 36.2 C L 05/06/18 15:27 Pulse 103 H 05/06/18 15:27 Resp 20 05/06/18 15:27 BP 124/77 05/06/18 15:27 Pulse Ox 95 05/06/18 15:27 Constitutional: well developed and well nourished sitting in bed Eyes: EOM intact bilaterally ENMT: Ears: no external ear abnormality Nose: no external nose abnormality Mouth: + dry oral mucous membranes Neck: no nuchal rigidity Respiratory: normal respiratory effort Auscultation: + diminished lung sounds (no rhonchi or cough today) Cardiovascular: RRR, no murmur, no edema Gastrointestinal (Abdomen): Inspection/Auscultation: normal bowel sounds Percussion/Palpation: abdomen soft; abdomen nontender Musculoskeletal: Extremities: strength 5/5 throughout Skin: no rashes, warm and dry Neurologic: spastic weakness generalized Psychiatric: Orientation: alert and oriented x 3 Affect: + flat affect Results & Data Laboratory Results Abnormal lab results 05/05/18 05/06/18 05/06/18 Range/Units 20:36 00:31 04:28 RBC (4.7-6.1) M/uL Hgb (14.0-18.0) g/dL Hct (42-52) % Metamyelocytes # (Man) (0-0) K/uL Myelocytes # (Manual) (0-0) K/uL BUN (7-18) mg/dl Creatinine (0.6-1.4) mg/dl BUN/Creatinine Ratio (10-20) Glucose (70-99) mg/dl POC Glucose 267 H 263 H 225 H (70-99) 05/06/18 05/06/18 05/06/18 Range/Units 06:31 06:31 07:52 RBC 4.49 L (4.7-6.1) M/uL Hgb 13.7 L (14.0-18.0) g/dL Hct 40.7 L (42-52) % Metamyelocytes # (Man) 0.07 H (0-0) K/uL Myelocytes # (Manual) 0.13 H (0-0) K/uL BUN 57 H (7-18) mg/dl Creatinine 2.83 H D (0.6-1.4) mg/dl BUN/Creatinine Ratio 20.2 H (10-20) Glucose 242 H (70-99) mg/dl POC Glucose 238 H (70-99) 05/06/18 05/06/18 Range/Units 11:33 17:07 RBC (4.7-6.1) M/uL Hgb (14.0-18.0) g/dL Hct (42-52) % Metamyelocytes # (Man) (0-0) K/uL Myelocytes # (Manual) (0-0) K/uL BUN (7-18) mg/dl Creatinine (0.6-1.4) mg/dl BUN/Creatinine Ratio (10-20) Glucose (70-99) mg/dl POC Glucose 251 H 264 H (70-99) (1) Renal failure Renal failure chronicity: unspecified chronicity Qualified Code(s): N19 - Unspecified kidney failure
[2018-05-07] MEDS: OXYCODONE HCL 10 MG TABCR (OXYCONTIN) PO SCH (06:07)
[2018-05-07 07:10] LABS: BUN Creatinine Ratio 25.7 (10-20); Creatinine Clr Calc Pharmacy 46.8 ml/min; Est GFR (African American) 39.2; Est GFR (Non-African American) 33.9; Potassium 3.8 mmol/L (3.5-5.1)
[2018-05-07] MEDS: AMOXICILLIN 500 MG CAP PO SCH (08:59)
[2018-05-07] MEDS: NAMZARIC PO SCH (09:00)
[2018-05-07] MEDS ORDERED: AMLODIPINE BESYLATE 5 MG TAB PO SCH (09:00)
[2018-05-07] MEDS ORDERED: GABAPENTIN 800 MG TAB PO SCH (09:00)
[2018-05-07] MEDS: SENNA 8.6 MG TAB PO SCH (09:01)
[2018-05-07] MEDS: DOXYCYCLINE HYCLATE 100 MG CAP PO SCH (09:01)
[2018-05-07] MEDS: ROPINIROLE HCL 1 MG TABLET PO SCH (09:01)
[2018-05-07] MEDS: INSULIN ASPART 100 UNITS/ML 3 ML PEN SC SCH (09:33)
[2018-05-07] MEDS: INSULIN GLARGINE SOLOSTAR 100 UNITS/ML 3 ML PEN SC SCH (09:35)
[2018-05-07] MEDS: HEPARIN SOD 5,000 UNIT/0.5 ML VIAL SQ SCH (09:38)
--- NOTE | 2018-05-07 10:27 | Hospitalist Progress Note ---
Date of Service May 07, 2018 Assessment & Plan (1) Acute renal failure: -Patient's family brought outpatient labs from March 2018 with creatinine 1.2 and GFR as 64 -on admission on 05/03/18 the creatinine is 4.49, then was on IV fluids and creatinine porsche 4.7 on 05/04/18, -IV fluids was stopped by nephrology service on 05/04/18 eveneing as patient was having net positive fluid intake -creatinine is 4.43 on 05/05/18 AM which is slightly better; received Lasix 40 mg x 1 to see if this can reduce cough and increase the urine output -creatinine 2.83 on AM of 05/06/18 and patient achieved net negative output, mart has been removed but awaiting for patient to urinate without mart -creatinine 1.95 on AM of 05/07/18 and patient has urinated without mart Summary Patient had March 2018 creatinine of 1.2 and was admitted with creatinine above 4 and went as high as 4.71. Discharge day 05/07/18 creatinine is 1.95. Patient should avoid lisinopril HCTZ (Zestoretic) until kidney function returns to baseline or as recommended by clinic doctor. Patient has prescription of amlodipine 10 mg daily for blood pressure 05/09/2018 1:40 PM Provider Gabriel Gomez MD Department Nephrology, [facility] Address: [facility] [address], [place] [address] Patient should follow up with primary medical doctor. Recommend that patient should avoid metformin at this time and to reduce home insulin of Humulin from 70 units in the AM to 50 units in the AM and continue the Humulin lunch and dinner at same home dose until kidney function returns to baseline (2) Poor appetite: patient's is presumed on admission to have poor appetite from acute illness wad from admission to 05/05/18 on doxycycline IV for possible bronchitis and cefepime IV for open sacral decubitus wounds mostly stage II with surrounding erythema however patient has been afebrile to date Deep Wound Culture of sacral ulcer of Streptococcus species with Sensitivities Dependent on Further Identification and Low Counts of Probable Skin Edwina, and also Coag negative Staphylococcus will need wound care and repositioning as per nursing protocols for the sacral ulcer urine cultures negative admission blood culture are negative and patient transitioned on 05/05/18 to oral doxycycline 100 mg BID and Amoxicillin renally dosed as 500 mg q12 hours Patient has clinically improved and antibiotics stopped on 05/07/18 (3) Altered mental status: Metabolic encephalopathy (resolved) Likely metabolic encephalopathy secondary to hypoglycemia, acute renal failure, in the setting of narcotic and multiple medication use -currently mental status is baseline as of 05/04/18 History of Parkinson's disease with Dementia -as per patient's -and that at baseline patient is generally bedridden -PT/OT evaluations while in the hospital were completed (4) Diabetes type 2 with atherosclerosis of arteries of extremities: Type 2 diabetes mellitus with fci use of insulin with complication of hypoglycemia Patient presented with hypoglycemia likely secondary to acute renal failure in the setting of poor oral intake, insulin use, and possible underlying infection pharmacy glycemic control service consulted discharge instruction: Patient should follow up with primary medical doctor. Recommend that patient should avoid metformin at this time and to reduce home insulin of Humulin from 70 units in the AM to 50 units in the AM and continue the Humulin lunch and dinner at same home dose until kidney function returns to baseline (5) Hypertension: avoid lisinopril and HCTZ to prevent worsening changes in renal function had discussed with Dr. Miller from nephrology about using amlodipine for blood pressure control and she agrees Patient should avoid lisinopril HCTZ (Zestoretic) until kidney function returns to baseline or as recommended by clinic doctor. Patient has prescription of amlodipine 10 mg daily for blood pressure (6) Low back pain: Chronic back pain on narcotic medications and treated as outpatient with narcotic pain medications [place] PDMP was checked and patient had 30 day supply of Oxycontin ER 20 mg tablet filled on 04/07/18 and 30 day supply of Oxycodone/Acetaminophen (5mg/325mg) filled on 04/12/18 resume Oxycodone/Acetaminophen (5mg/325mg) as every 6 hours as needed for moderate pain patient given reduced doses of oxycodone q12 hours to avoid sedation Discharge Instructions Patient should have the home oxycontin 20 mg every 12 hours to be cut in half to avoid sedation. Patient can seek new prescription with primary care doctor Patient should also take sennosides daily and Miralax as needed daily to prevent constipation from narcotics. Patient has in the past taken 1200 mg TID for neuropathic pain. This dose is quite high especially with kidney injury and a new prescription has been made for gabapentin 800 mg TID (7) DVT prophylaxis: Heparin subcutaneous q12 hours while inpatient (8) Discharge planning issues: Patient's am [phone] Patient's Primary Care provider: Lee Martinez at [address] [place] [address], phone [phone]; Discharge Diagnosis Acute renal failure (improving), Type 2 diabetes mellitus with fci use of insulin with complication of hypoglycemia, Hypertension, Metabolic encephalopathy (resolved), Chronic back pain on narcotic medications Discharge to home Patient had March 2018 creatinine of 1.2 and was admitted with creatinine above 4 and went as high as 4.71. Discharge day 05/07/18 creatinine is 1.95. Patient should avoid lisinopril HCTZ (Zestoretic) until kidney function returns to baseline or as recommended by clinic doctor. Patient has prescription of amlodipine 10 mg daily for blood pressure 05/09/2018 1:40 PM Provider Gabriel Gomez MD Department Nephrology, [facility] Address: [address] [place] [address] , [place] [address] Patient should follow up with primary medical doctor. Recommend that patient should avoid metformin at this time and to reduce home insulin of Humulin from 70 units in the AM to 50 units in the AM and continue the Humulin lunch and dinner at same home dose until kidney function returns to baseline Patient should have the home oxycontin 20 mg every 12 hours to be cut in half to avoid sedation. Patient can seek new prescription with primary care doctor Patient should also take sennosides daily and Miralax as needed daily to prevent constipation from narcotics. Patient has in the past taken 1200 mg TID for neuropathic pain. This dose is quite high especially with kidney injury and a new prescription has been made for gabapentin 800 mg TID Subjective creatinine 2.83 on AM of 05/06/18 and patient achieved net negative output, mart has been removed but awaiting for patient to urinate without mart Patient's breathing sounds better today and less cough. Patient denies acute pain. no chest pain, no abdominal pain, no vomiting Physical Exam Vital Signs (Past 24 Hours): Last Vital Signs Temp 36.8 C 05/07/18 09:32 Pulse 90 03/23/19 09:32 Resp 13 05/07/18 09:32 BP 156/79 H 05/07/18 09:32 Pulse Ox 92 05/07/18 09:32 Constitutional: WD/WN, vitals as above + obese Eyes: PERRL, conjunctivae normal, anicteric sclerae EOM intact bilaterally ENMT: external ear and nose normal, oropharynx normal Neck: trachea midline, no thyromegaly Respiratory: normal respiratory effort, lungs clear to auscultation Cardiovascular: Rate/Rhythm: regular rate and regular rhythm Gastrointestinal (Abdomen): normal bowel sounds, soft, nontender, no hepatosplenomegaly Musculoskeletal: Head/Neck/Chest: normocephalic and head atraumatic Neurologic: PERRL, EOMI, accommodation nl, no face palsy, no dysarthria Psychiatric: A+Ox3, euthymic affect
--- NOTE | 2018-05-07 10:36 | Discharge Summary ---
Date of Service May 07, 2018 Admission HPI Per Admitting Provider Patient is a 68-year-old male with a history of Parkinson's disease with dementia, diabetes, hypertension, low back pain presenting with altered mental status and hypoglycemia. Obtained from patient's at the bedside who is his primary caregiver. As per patient's the patient is mostly bedbound and able to go to bathroom with maximum assistance. Terms of his mental status the patient has poor short-term memory, answers questions appropriately at least 70% of the time. Patient was at his usual state of health until over the weekend when he was noted to have productive cough, associated with fever. This progressed leading to poor appetite as well. Patient was still receiving his usual insulin doses as well as pain medications muscle relaxants. This morning the patient only had applesauce for breakfast and before lunch only had a few bites as well. He did receive his usual insulin dose. Around 2 PM the patient was noted to have altered mental status described as lethargy, not responding much to questions, and blood sugar was found to be in the 60s. He was given orange juice, which slightly improved his blood sugar. Patient was then brought to the ER for evaluation At the ER the patient was found to have creatinine of 4.49. CT head no acute process. Hospitalist consulted for admission . Admission Exam Per Admitting Provider General- oriented x 2, not in distress, speaks in sentences with no effort or accessory muscle use Head- atraumatic Eyes- PERRL, EOMI, anicteric ENT- oropharynx clear Neck- supple, no JVD, no adenopathy, no thyromegaly; carotids +2/2, no bruits appreciated Lungs-mild lung rhonchi bilateral bases, no wheezing, good air entry bilaterally Heart- normal rate, regular rhythm; no murmur, no gallop, no rub appreciated Abdomen- normal bowel sounds, nondistended, soft, nontender, no masses or hepatosplenomegaly Buttocks-positive open sacral decubitus wounds mostly stage II with surrounding erythema Extremities- no pretibial edema, no calf tenderness; peripheral pulses intact Neuro- alert, oriented x 2; CN 2-12 grossly intact; motor 5/5 bilaterally;sensation 100% on all extremities; no other gross focal neurologic deficits Skin- warm & dry Principal Diagnosis Acute renal failure (improving), Type 2 diabetes mellitus with long-term use of insulin with complication of hypoglycemia, Hypertension, Metabolic encephalopathy (resolved), Chronic back pain on narcotic medications Discharge Exam Constitutional WD/WN, vitals as above + obese Eyes PERRL, conjunctivae normal, anicteric sclerae EOM intact bilaterally ENMT external ear and nose normal, oropharynx normal Neck trachea midline, no thyromegaly Respiratory normal respiratory effort, lungs clear to auscultation Cardiovascular Rate/Rhythm: regular rate and regular rhythm Gastrointestinal (Abdomen) normal bowel sounds, soft, nontender, no hepatosplenomegaly Musculoskeletal Head/Neck/Chest: normocephalic and head atraumatic Neurologic PERRL, EOMI, accommodation nl, no face palsy, no dysarthria Psychiatric A+Ox3, euthymic affect Discharge Data Allergies Allergy/AdvReac Type Severity Reaction Status Date / Time No Known Allergies Allergy Unverified 03/07/14 08:20 Consultations 05/03/18 17:29 ED Decision to Admit Stat 05/03/18 20:01 Consult Nephrology Routine Ordered Studies 05/03/18 16:43 CT head/brain wo con Stat 05/03/18 20:01 US renal/blad retro comp Stat Hospital Course (1) Acute renal failure: -Patient's family brought outpatient labs from March 2018 with creatinine 1.2 and GFR as 64 -on admission on 05/03/18 the creatinine is 4.49, then was on IV fluids and creatinine porsche 4.7 on 05/04/18, -IV fluids was stopped by nephrology service on 05/04/18 eveneing as patient was having net positive fluid intake -creatinine is 4.43 on 05/05/18 AM which is slightly better; received Lasix 40 mg x 1 to see if this can reduce cough and increase the urine output -creatinine 2.83 on AM of 05/06/18 and patient achieved net negative output, mart has been removed but awaiting for patient to urinate without mart -creatinine 1.95 on AM of 05/07/18 and patient has urinated without mart Summary Patient had March 2018 creatinine of 1.2 and was admitted with creatinine above 4 and went as high as 4.71. Discharge day 05/07/18 creatinine is 1.95. Patient should avoid lisinopril HCTZ (Zestoretic) until kidney function returns to baseline or as recommended by clinic doctor. Patient has prescription of amlodipine 10 mg daily for blood pressure 05/09/2018 1:40 PM Provider Gabriel Gomez MD Department Nephrology, [facility] Address: [facility] [address], [place] [address] Patient should follow up with primary medical doctor. Recommend that patient should avoid metformin at this time and to reduce home insulin of Humulin from 70 units in the AM to 50 units in the AM and continue the Humulin lunch and dinner at same home dose until kidney function returns to baseline (2) Poor appetite: patient's is presumed on admission to have poor appetite from acute illness wad from admission to 05/05/18 on doxycycline IV for possible bronchitis and cefepime IV for open sacral decubitus wounds mostly stage II with surrounding erythema however patient has been afebrile to date Deep Wound Culture of sacral ulcer of Streptococcus species with Sensitivities Dependent on Further Identification and Low Counts of Probable Skin Edwina, and also Coag negative Staphylococcus will need wound care and repositioning as per nursing protocols for the sacral ulcer urine cultures negative admission blood culture are negative and patient transitioned on 05/05/18 to oral doxycycline 100 mg BID and Amoxicillin renally dosed as 500 mg q12 hours Patient has clinically improved and antibiotics stopped on 05/07/18 (3) Altered mental status: Metabolic encephalopathy (resolved) Likely metabolic encephalopathy secondary to hypoglycemia, acute renal failure, in the setting of narcotic and multiple medication use -currently mental status is baseline as of 05/04/18 History of Parkinson's disease with Dementia -as per patient's -and that at baseline patient is generally bedridden -PT/OT evaluations while in the hospital were completed (4) Diabetes type 2 with atherosclerosis of arteries of extremities: Type 2 diabetes mellitus with long-term use of insulin with complication of hypoglycemia Patient presented with hypoglycemia likely secondary to acute renal failure in the setting of poor oral intake, insulin use, and possible underlying infection pharmacy glycemic control service consulted discharge instruction: Patient should follow up with primary medical doctor. Recommend that patient should avoid metformin at this time and to reduce home insulin of Humulin from 70 units in the AM to 50 units in the AM and continue the Humulin lunch and dinner at same home dose until kidney function returns to baseline (5) Hypertension: avoid lisinopril and HCTZ to prevent worsening changes in renal function had discussed with Dr. Miller from nephrology about using amlodipine for blood pressure control and she agrees Patient should avoid lisinopril HCTZ (Zestoretic) until kidney function returns to baseline or as recommended by clinic doctor. Patient has prescription of amlodipine 10 mg daily for blood pressure (6) Low back pain: Chronic back pain on narcotic medications and treated as outpatient with narcotic pain medications [place] PDMP was checked and patient had 30 day supply of Oxycontin ER 20 mg tablet filled on 04/07/18 and 30 day supply of Oxycodone/Acetaminophen (5mg/325mg) filled on 04/12/18 resume Oxycodone/Acetaminophen (5mg/325mg) as every 6 hours as needed for mode rate pain patient given reduced doses of oxycodone q12 hours to avoid sedation Discharge Instructions Patient should have the home oxycontin 20 mg every 12 hours to be cut in half to avoid sedation. Patient can seek new prescription with primary care doctor Patient should also take sennosides daily and Miralax as needed daily to prevent constipation from narcotics. Patient has in the past taken 1200 mg TID for neuropathic pain. This dose is quite high especially with kidney injury and a new prescription has been made for gabapentin 800 mg TID (7) DVT prophylaxis: Heparin subcutaneous q12 hours while inpatient (8) Discharge planning issues: Patient's am [phone] Patient's Primary Care provider: Lee Martinez at [address] [place] [address], phone [phone]; Discharge Diagnosis Acute renal failure (improving), Type 2 diabetes mellitus with long-term use of insulin with complication of hypoglycemia, Hypertension, Metabolic encephalopathy (resolved), Chronic back pain on narcotic medications Discharge to home Patient had March 2018 creatinine of 1.2 and was admitted with creatinine above 4 and went as high as 4.71. Discharge day 05/07/18 creatinine is 1.95. Patient should avoid lisinopril HCTZ (Zestoretic) until kidney function returns to baseline or as recommended by clinic doctor. Patient has prescription of amlodipine 10 mg daily for blood pressure 05/09/2018 1:40 PM Provider Gabriel Gomez MD Department Nephrology, [facility] Address: [address] [place] [address] , [place] [address] Patient should follow up with primary medical doctor. Recommend that patient should avoid metformin at this time and to reduce home insulin of Humulin from 70 units in the AM to 50 units in the AM and continue the Humulin lunch and dinner at same home dose until kidney function returns to baseline Patient should have the home oxycontin 20 mg every 12 hours to be cut in half to avoid sedation. Patient can seek new prescription with primary care doctor Patient should also take sennosides daily and Miralax as needed daily to prevent constipation from narcotics. Patient has in the past taken 1200 mg TID for neuropathic pain. This dose is quite high especially with kidney injury and a new prescription has been made for gabapentin 800 mg TID Total Time Total Time Spent Total Time Spent (In Minutes): 40 minutes Total Time Includes: Examination of the Patient, Discharge Planning and Medication Reconciliation Discharge Plan Discharge Items Patient Disposition: Home - Self-Care Reason For Visit: ACUTE RENAL FAILURE Discharge Diagnosis: Acute renal failure (improving), Type 2 diabetes mellitus with long-term use of insulin with complication of hypoglycemia, Hypertension, Metabolic encephalopathy (resolved), Chronic back pain on narcotic medications Condition: Good Discharge Goals: Improve disease control Activity: Resume your previous activity Non-emergency contact: Primary Care Provider and Mortgage Collector Call non-emergency contact if: you have any medication questions Follow-up/Referrals: Lee Martinez PA-C [Primary Care Provider] - Diet: Carb Consistent or DM2 Diet Texture: Dental soft (bite-sized) Diet Comment: minced, moist Addtl Provider Instructions: Discharge to home Patient had March 2018 creatinine of 1.2 and was admitted with creatinine above 4 and went as high as 4.71. Discharge day 05/07/18 creatinine is 1.95. Patient should avoid lisinopril HCTZ (Zestoretic) until kidney function returns to baseline or as recommended by clinic doctor. Patient has prescription of amlodipine 10 mg daily for blood pressure 05/09/2018 1:40 PM Provider Gabriel Gomez MD Department Nephrology, [facility] Address: [address], [place] [address] Patient should follow up with primary medical doctor. Recommend that patient should avoid metformin at this time and to reduce home insulin of Humulin from 70 units in the AM to 50 units in the AM and continue the Humulin lunch and dinner at same home dose until kidney function returns to baseline Patient should avoid Patient should have the home oxycontin 20 mg every 12 hours to be cut in half to avoid sedation. Patient can seek new prescription with primary care doctor Patient should also take sennosides daily and Miralax as needed daily to prevent constipation from narcotics. Patient has in the past taken 1200 mg TID for neuropathic pain. This dose is quite high especially with kidney injury and a new prescription has been made for gabapentin 800 mg TID Prescriptions: New amlodipine 10 mg tablet 10 mg PO QAM 30 Days Qty: 30 RF: 0 sennosides [Senokot] 8.6 mg Tablet 8.6 mg PO QAM 30 Days Qty: 30 RF: 0 gabapentin 800 mg Tablet 800 mg PO TID 30 Days Qty: 90 RF: 0 polyethylene glycol 3350 [Miralax] 17 gram Powder In Packet 17 g PO DAILY PRN (Reason: constipation) 30 Days Qty: 30 RF: 0 Continued multivitamin Tablet 1 tab PO DAILY RF: 0 cyclobenzaprine 10 mg tablet 10 mg PO TID RF: 0 sennosides [senna] 8.6 mg Tablet 8.6 mg PO BID PRN (Reason: Constipation) RF: 0 ropinirole 1 mg tablet 1 mg PO BID RF: 0 aspirin [Aspir-81] 81 mg Tablet,Delayed Release (Dr/Ec) 81 mg PO DAILY RF: 0 oxycodone-acetaminophen [Percocet] 5-325 mg tablet 1 tab PO QID PRN (Reason: Pain) RF: 0 cyanocobalamin (vitamin B-12) [Vitamin B-12] 500 mcg Tablet 500 mcg PO DAILY RF: 0 docusate sodium [Colace] 100 mg Capsule 100 mg PO DAILY PRN (Reason: Constipation) RF: 0 propranolol 20 mg tablet 20 mg PO BID RF: 0 cholecalciferol (vitamin D3) [Vitamin D3] 400 unit Capsule 400 unit PO DAILY RF: 0 Refresh Repair 0.5-0.9 % Drops 1 - 2 drp OPHTHALMIC (EYE) BID PRN (Reason: Dry Eyes) RF: 0 Ocuvite Adult 50 Plus 250-5-1 mg Capsule 1 cap PO DAILY RF: 0 Namzaric 28-10 mg capsule,sprinkle,ER 24hr 1 cap PO DAILY RF: 0 Humulin R U-500 (Conc) Kwikpen 500 unit/mL (3 mL) insulin pen 50 unit subcut BID RF: 0 Narcan 4mg/0.1 1 dose PO UD PRN (Reason: OVERDOSE) RF: 0 Discontinued gabapentin [Neurontin] 400 mg capsule 1,200 mg PO TID RF: 0 metformin [Glucophage] 1,000 mg tablet 1,000 mg PO BID RF: 0 lisinopril-hydrochlorothiazide [Zestoretic] 10-12.5 mg tablet 1 tab PO DAILY RF: 0 oxycodone [OxyContin] 20 mg tablet,oral only,ext.rel.12 hr 20 mg PO Q12 RF: 0 Humulin R U-500 (Conc) Kwikpen 500 unit/mL (3 mL) insulin pen 70 unit subcut QAM RF: 0 Stand-Alone Forms: [facility] Discharge Orders: Discharge Order (Routine); Ordered 05/07/18 Ordered By: Chris Green Admission Data Admit Date/Time: 05/03/18 18:55 Attending Provider: Chris Green Admit Provider: Howie Corona Primary Care Provider: Lee Martinez Other Providers: Chris Green ; Maria T Miller ; Nitin Bravo ; Anton Vasques I ; Sandee Tanner ; eBtsey Carlson ; Gabriel Gomez Service: Medical Other Interventions: Discharge Summary Assessment (RN) Last Done: 05/07/18 09:32 Pending Studies at Discharge: No
--- NOTE | 2018-05-08 13:01 | Pharmacy Report ---
ED Pharmacist Culture FollowUP - Culture Follow Up Note Date of Service: May 08, 2018 Notes:: ED was notified of positive blood culture 1/2 with [facility], but primary team for admission was not. Patient was discharged yesterday. Dr. Jose assessed patient per nursing note - plan noted on culture result to notify Dr. Garcia's team. Culture/instructions placed in follow-up folder - I found this at the beginning of my shift at 1230. Spoke w current charge nurse who noted that charge nurse o verbranden had mentioned her intent to address this result at the start of her shift tonight. I contacted the physician who discharged the patient yesterday (Dr. Green). Dr. Green acknowledged results. Management per discharging team discretion.
--- NOTE | 2018-05-13 08:54 | Coding Query ---
CODING QUERY To promote full compliance with coding requirements relating to patient care, provider participation is requested in all cases of turn sewer uncertainty. Please assist us with the question(s) below: Coding Question(s): Discharge Summary addendum states blood culture resulted as gram positive cocci corynebacterium species and was prescribed amoxicillin 500mp q12 hours and doxycycline 100mg BID. Please provide a supporting diagnosis. Physician's Response(s): The corynebacterium species is likely a contaminant. The patient was prescribed antibiotics because there was the blood culture that did not not have have any growth at all until after patient was discharged. The antibiotics would have been empirically for a possible bacteremia. But the fact that it came back eventually as only corynebacterium in out of 2 blood culture bacteria strongly suggests that the patient did not have a blood borne. infection but that the corynebacterium is from skin walter Thank you Coni Flores Principal Diagnosis: "�that condition established after study, to be chiefly responsible for occasioning the admission of the patient to the hospital for care." Co-Existing Principal Diagnosis: "�when two or more diagnoses equally meet the criteria for principal diagnosis as determined by the circumstances of admission, diagnostic work up, and/or therapy provided, and the Alphabetic Index, Tabular List, or another coding guideline does not provide sequencing direction, any one of the diagnoses may be sequenced first." "When the physician has documented what appears to be a current diagnosis in the body of the record, but has not included the diagnosis in the final diagnostic statement, the physician should be asked whether the diagnosis should be added." (Source Coding [facility] 2 QTR90. p3-4) SHAREE
== END 2018-05-07 10:00 | disposition home health service (06) ==
LOC: ED 16:26 → SUATTDRO 18:55 → 2S 18:55 → 4E 05-04 18:37

== ENCOUNTER 2019-04-03 11:40 | Inpatient (IN) ==
[2019-04-03] MEDS ORDERED: NALOXONE HCL 1 MG in SODIUM CHLORIDE 0.9% 1000ML 1,000 ML IV STA (11:50)
[2019-04-03] MEDS: NALOXONE HCL 0.4 MG/1 ML VIAL/CARP ONE (11:54)
[2019-04-03] MEDS ORDERED: SODIUM CHLORIDE 0.9% 1000ML 1,000 ML IV SCH (12:00)
[2019-04-03 12:08] LABS: Basophils # (auto) 0.16 K/uL (0-0.2); Eosinophils # (auto) 0.25 K/uL (0-0.5); Eosinophils % (auto) 1.6 %; Hematocrit (blood only) 43.2 % (42-52); Hemoglobin 13.7 g/dL (14.0-18.0); Immature Granulocytes # (auto) 0.02 K/uL (0.00-0.02); Immature Granulocytes % (auto) 0.1 %; Lymphocytes # (auto) 1.81 K/uL (1.2-3.4); Lymphocytes % (auto) 11.7 %; Mean Corpuscular Hemoglobin 28.7 pg (25-34); Mean Corpuscular Hgb Conc 31.7 g/dL (32-36); Mean Corpuscular Volume 90.4 fL (80-100); Monocytes # (auto) 1.42 K/uL (0.11-0.59); Monocytes % (auto) 9.2 %; Neutrophils # (auto) 11.84 K/uL (1.4-6.5); Neutrophils % (auto) 76.4 %; Platelet Count 201 K/uL (130-400); RDW Coefficient of Variation 14.7 % (11.5-14.5); RDW Standard Deviation 48.9 fL (36.4-46.3); Red Blood Count 4.78 M/uL (4.7-6.1)
[2019-04-03] MEDS ORDERED: NALOXONE HCL 0.4 MG/1 ML VIAL/CARP ONE (12:09)
--- NOTE | 2019-04-03 12:12 | XRay Report ---
XR chest 1V portable CLINICAL HISTORY: weakness COMPARISON STUDY: 05/06/2018 FINDINGS: The heart is borderline enlarged. There is mild elevation right hemidiaphragm. There is no acute parenchymal consolidation. There is mild basilar atelectasis. There is no failure.[ IMPRESSION: Stable mild cardiomegaly. Mild elevation of the right hemidiaphragm. Mild basilar atelect asis. ACT 112: Negative or not required by law. Electronically signed by: Kenny Goodrich M.D. 04/03/2019 12:11 PM
[2019-04-03 12:17] LABS: Appearance Urine Cloudy (Clear); Bacteria Urine Automated 1+ (Negative); Bilirubin Urine Negative (Negative); Blood Urine 2+ (Negative); Color Urine Dark Yellow; Glucose Urine UA 1+ (Negative); Ketones Urine Negative (Negative); Leukocyte Esterase Urine 2+ (Negative); Nitrite Urine Positive (Negative); Protein Urine 1+ (Negative); RBC Urine Automated 0-4 /hpf (0-4); Specific Gravity Urine 1.024 (1.000-1.030); Urobilinogen Urine Negative (Negative); WBC Urine Automated >30 /hpf (0-5); pH Urine 5.5 (4.5-7.5)
[2019-04-03 12:32] LABS: Albumin Globulin Ratio 0.5 (0.9-2); Albumin Level 2.5 gm/dl (3.4-5.0); BUN Creatinine Ratio 22.7 (10-20); Bilirubin,Total 0.6 mg/dl (0.2-1); Calcium 8.7 mg/dl (8.5-10.1); Creatinine Clr Calc Pharmacy 40.2 ml/min; Est GFR (African American) 33.6; Est GFR (Non-African American) 28.9; Globulin 5.3 gm/dl (2.5-4.0); Magnesium 2.9 mg/dl (1.8-2.4); Potassium 5.9 mmol/L (3.5-5.1); Total Protein 7.8 gm/dl (6.4-8.2)
[2019-04-03 12:35] LABS: Amorphous Sediment Urine Present (None Prsent); Renal Epithelial Cells Urine 0-5 /lpf (0-5)
[2019-04-03 12:38] LABS: Thyroid Stimulating Hormone 0.505 uIu/ml (0.300-4.500)
[2019-04-03 12:49] LABS: Beta-Hydroxybutyrate 1.14 mg/dl (0.2-2.81)
[2019-04-03] MEDS ORDERED: ALBUT/IPRATROP 3MG/0.5MG NEB 3 ML VIAL NEB ONE (12:49)
[2019-04-03] MEDS ORDERED: PIPERACILLIN/TAZOBACTAM 4.5 GM/120 ML BAG IV ONE (13:00)
--- OUTSIDE RECORDS SUMMARY | 2019-04-03 13:01 | External Medical Summary | Continuity of Care Document ---
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 Refills: 0 Vardenafil HCl - 10 MG Oral Tablet; TAKE 1 TABLET DAILY 1 HO UR BEFORE NEEDED Refills: 0 KP Lutein CAPS; TAKE 25 MG Daily Refills: 0 Ocuvite Adult 50+ Oral Capsule; TAKE 1 CAPSULE Daily Refills: 0 Vitamin D 50 MCG (1999 UT) Oral Capsule; TAKE 1 CAPSULE Earnest y Refills: 0 Multivitamins TABS; TAKE 1 TABLET DAILY. Refills: 0 Stool Softener 100 MG Oral Tablet; TAKE TABLET PRN Refills: 0 Laxative Pills 25 MG Oral Tablet; USE DIRECTED. Refills: 0 HumaLOG 100 UNIT/ML Subcutaneous Solutio n; inject 70 units in morning, 50 units at 2pm, 50 units at 10 pm Refills: 0 Cyclobenzaprine HCl - 10 MG Oral Tablet; TAKE 1 TABLET 3 javon es daily PRN Refills: 0 Gabapentin 400 MG Oral Capsule; TAKE 3 CAPSULE 3 times daily Refills: 0 Glucophage 850 MG Oral Tablet; TAKE 1 TABLET 3 TIMES DAILY W ITH MEALS. Refills: 0 Percocet 5-325 MG Oral Tablet; TAKE 1 TABLET 4 times daily P RN Refills: 0 Donepezil HCl - 10 MG Oral Tablet; Take 1 tablet daily Refills: 0 Zestoretic 10-12.5 MG Oral Tablet; TAKE 1 TABLET DAILY. Refills: 0 OxyCONTIN 40 MG Oral Tablet ER 12 Hour A buse-Deterrent; TAKE 1 TABLET Twice daily PRN Refills: 0 Carbidopa-Levodopa 25-100 MG Oral Tablet ; TAKE 1 TABLET 3 TIMES DAILY at 6am, 11:30am and 4:30pm (about 30min before meals). DO Yamile Pappas Start: 31-Jul-2016 Quantity: 90 Refills: 5 Procedures Procedures not documented Immunizations Immunizations not documented Family History Mother Family history of Parkinsonism (V17.2) (Z82.0) Status: Activ e Plan of Treatment Planned Observations Planned Goals not documented Results No Known Results Results not documented Encounters Appointment; Yamile Pappas DO 02-Feb-2017 16:00 Encounter Diagnosis: Problem not documented
[2019-04-03 13:30] LABS: iSTAT Arterial Blood Gas pCO2 61 mmHg (35-46); iSTAT Arterial Blood Gas pH 7.31 (7.35-7.45); iSTAT Hematocrit 41 % (42-52); iSTAT Hemoglobin 13.9 g/dl (14.0-18.0); iSTAT Sodium 133 mmol/L (135-144)
[2019-04-03 13:31] LABS: iSTAT Arterial Blood Gas HCO3 31 meg/L (19-24); iSTAT Arterial Blood Gas pO2 66 mmHg (80-95); iSTAT Carbon Dioxide 32 mmol/L (24-31); iSTAT Sample Type Arterial
--- NOTE | 2019-04-03 13:38 | CT Scan Report ---
CT head/brain wo con CLINICAL HISTORY: Acute change in mental status. History of Parkinson's dementia. COMPARISON STUDY: 05/03/2018 TECHNIQUE: Axial CT of the brain is performed from the vertex to the skull base. IV contrast was not administered for this examination. A dose lowering technique was utilized adhering to the principles of ALARA. CT DOSE: 729.78 mGycm FINDINGS: No intra or extra-axial mass lesions are visualized. There is no CT evidence of acute cortical infarc tion. There is no evidence of midline shift. There is no acute hemorrhage. No calvarial fractures ar e visualized. There are patchy white matter hypodensities likely on a small vessel basis. There is minor ventricular prominence which is felt to be secondary to volume loss. This remain stabl e There is no evidence of acute sinusitis IMPRESSION: No acute intracranial findings ACT 112: Negative or not required by law. Electronically signed by: Kenny Goodrich M.D. 04/03/2019 1:37 PM
--- NOTE | 2019-04-03 13:47 | CT Scan Report ---
CT abd pelvis wo con CT DOSE: 1073.66 mGycm HISTORY: Sepsis. Hematuria. septic, UTI, r/o stones/obstruction, hematuria TECHNIQUE: Multiaxial CT images of the abdomen and pelvis were performed without contrast. A dose lo wering technique was utilized adhering to the principles of ALARA. COMPARISON STUDY: 03/07/2014 FINDINGS: Interval development of bibasilar parenchymal infiltrates. The liver spleen and pancreas ar e grossly unremarkable. There are several nonobstructing upper pole right renal calcifications. There is no evidence for an o bstructing urinary tract calculus. The appendix is normal. Bowel pattern is considered nonobstructive. There are findings of increased fecal load within the cecum, ascending colon, as well as proximal to mid transverse colonic regions. Bladder is midline. There is a Blevins catheter within the bladder. There are small fat-containing bila teral inguinal hernias. There is no evidence for bowel containment incarceration or obstructive mccall e. IMPRESSION: 1. Interval development of bibasilar parenchymal infiltrates.. 2. Nonobstructing upper pole right renal calcifications. 3. Normal appendix. 4. Considerable increase in fecal load of the ascending and transverse colon consistent with fecal st asis. ACT 112: Negative or not required by law. The above report was generated using voice recognition software. It may contain grammatical, syntax or spelling errors. Electronically signed by: Dayne Cannon M.D. 04/03/2019 1:46 PM
[2019-04-03] MEDS ORDERED: VANCOMYCIN HCL 2,250 MG in SODIUM CHLORIDE 0.9% 500 ML IV STA (14:24)
[2019-04-03] MEDS ORDERED: LEVOFLOXACIN/D5W 750 MG/150 ML BAG IV ONE (14:30)
[2019-04-03] MEDS ORDERED: ONDANSETRON INJ 2 MG/ML 2 ML VIAL IV PRN (15:05)
--- NOTE | 2019-04-03 15:32 | History & Physical Report ---
Date of Service April 03, 2019 Assessment & Plan (1) Unresponsiveness: Was brought in unresponsive Only minimally responsive to vocal commands and pain Likely has metabolic encephalopathy secondary to infection Will admit to telemetry unit Observe for now (2) Metabolic encephalopathy: Likely secondary to infection (3) Respiratory failure with hypoxia and hypercapnia: Has bibasilar infiltration on CAT scan Flu negative Started with intravenous vancomycin, Zosyn and Levaquin Will continue IV vancomycin and Levaquin Has been on BiPAP to maintain saturation Will give nebulized bronchodilator and a small dose of Solu-Medrol Will need pulmonary evaluation if the condition does not get any better (4) Diabetes type 2 with atherosclerosis of arteries of extremities: Blood sugar noted to be very high We will continue his current insulin regimen Glycemic pharmacist consult (5) Pneumonia: Bibasilar infiltration Increase in white count supportive Blood culture has been taken Continue IV vancomycin and Levaquin to cover respiratory and urinary source of organisms (6) Parkinson's disease: Stable no acute issues (7) Dementia: No acute issues (8) Chronic kidney disease: Has chronic kidney disease Creatinine remains stable Potassium noted was noted to be high but has been improving DVT prophylaxis Subcu heparin CODE STATUS Conditional-discussed with the Prognosis Guarded Discussed with the in detail History of Present Illness Chief Complaint: Was brought in unresponsive Primary Care Provider: Lee Martinez He is a 68-year-old male with significant past medical history of Parkinson's disease, dementia, type 2 diabetes on insulin, hypertension, history of respiratory failure and remote history of crush injury on the left side and has been minimally mobile was brought into the emergency room with unresponsive episode. The history was taken from the . He finished recent course of antibiotic yesterday with Bactrim for UTI. He was noted to be very drowsy since this morning and not been responding the way he used to be. He ate his breakfast this morning and at around 830 he became almost unresponsive and felt warm and at the time he was brought into the emergency room. No history of cough, fever and/or chills, no abdominal pain, nausea and/or vomiting, and no problem with urine and her bowel habit. No history of numbness or tingling in the extremities and no weakness involving any side of the body. In the ER he was minimally responsive to vocal commands. Opening his eyes and trying to squeeze my fingers and move the feet. He was not in any acute distress but he required BiPAP to maintain saturation. CT scan of the abdomen pelvis did show bibasilar infiltrate and with increasing white count he was started with intravenous vancomycin, Levaquin and Zosyn for possible sepsis secondary to pneumonia and/or UTI. He was admitted to telemetry unit for continuation of care. Allergies Allergy/AdvReac Type Severity Reaction Status Date / Time No Known Allergies Allergy Unverified 04/03/19 12:46 Home Medications Home Medications Medication Instructions Recorded Confirmed Type Namzaric 1 cap PO DAILY 05/03/18 04/03/19 History aspirin [Aspir-81] 81 mg PO DAILY 05/03/18 04/03/19 History cholecalciferol (vitamin D3) 400 unit PO DAILY 05/03/18 04/03/19 History [Vitamin D3] cyclobenzaprine 10 mg PO TID 05/03/18 04/03/19 History docusate sodium [Colace] 100 mg PO DAILY PRN 05/03/18 04/03/19 History multivitamin 1 tab PO DAILY 05/03/18 04/03/19 History oxycodone-acetaminophen [Percocet] 1 tab PO QID PRN 05/03/18 04/03/19 History propranolol 20 mg PO BID 05/03/18 04/03/19 History ropinirole 1 mg PO BID 05/03/18 04/03/19 History amlodipine 5 mg PO DAILY 04/03/19 04/03/19 History atorvastatin 10 mg PO DAILY 04/03/19 04/03/19 History dulaglutide [Trulicity] 1.5 mg SUBCUT WK 04/03/19 04/03/19 History gabapentin 400 mg PO TID 04/03/19 04/03/19 History insulin aspart U-100 [Novolog See Rx Instructions .ROUTE .COMPLEX 04/03/19 04/03/19 History Flexpen U-100 Insulin] insulin degludec [Tresiba 60 unit SUBCUT BID 04/03/19 04/03/19 History FlexTouch U-200] magnesium oxide 400 mg PO BID 04/03/19 04/03/19 History morphine 10 mg PO BID 04/03/19 04/03/19 History Past Med/Surg History Medical History Dementia (Chronic) Diabetes (Chronic) Hypertension (Chronic) Mini stroke Parkinson's disease (Chronic) Surgical History History of hip replacement, total (Chronic) Hx of cholecystectomy (Chronic) Social History Preferred Language: Romansh Communication Ability: Impaired Communication Ability Comment: patient unresponsive, responds only to pain and movement [employer] Required: No Beliefs That Will Affect Care: None marital status: Current Living Situation: Spouse and Family Current Living Situation Comment: AND 3 CHILDREN Other Information That Helps Us Care for You: No Feels Safe at Home: Yes Safety Concerns: Feels Safe At This Time Smoking Status: Never smoker Do You Dip or Chew Tobacco: No ; Second Hand Exposure: No ; Tobacco Cessation Education Requested by Patient: No Hx Alcohol Use: No Hx Substance Use: No Review of Systems Review of Systems: All systems reviewed & are unremarkable except as noted in HPI & below Physical Exam Physical Exam: Lying in bed minimally responsive to commands Constitutional: well developed, well nourished, + ill appearing and + obese; no acute distress Eyes: PERRL, conjunctivae normal, anicteric sclerae ENMT: external ear and nose normal, oropharynx normal Neck: trachea midline, no thyromegaly Respiratory: + respiratory distress (Minimal shortness of breath at rest) Auscultation: + diminished lung sounds and + crackles (Bibasilar crackles) Cardiovascular: Rate/Rhythm: regular rate and regular rhythm Heart Sounds: no murmur Gastrointestinal (Abdomen): Inspection/Auscultation: abdomen normal to inspection and normal bowel sounds Percussion/Palpation: abdomen soft; abdomen nontender Musculoskeletal: No acute arthritis in any joints Neurologic: Minimally responsive to vocal commands by opening eyes and trying to squeeze my fingers. Responsive to painful stimuli Lymphatic: no cervical or axillary lymphadenopathy Results & Data Vital Signs (Past 12 Hours) Vital Signs Temp Pulse Pulse Resp BP BP Pulse Ox 04/03/19 13:38 88 20 109/63 93 04/03/19 13:02 87 16 97 04/03/19 13:00 88 18 118/65 97 04/03/19 12:59 83 18 93 04/03/19 12:34 87 89 18 105/62 105/62 95 04/03/19 12:02 94 H 20 94 04/03/19 12:00 92 04/03/19 11:46 38.2 C H 97 H 15 113/59 L 96 Laboratory Results Short CBC 04/03/19 Range/Units 11:56 WBC 15.50 H (4.8-10.8) K/uL Hgb 13.7 L (14.0-18.0) g/dL Hct 43.2 (42-52) % Plt Count 201 (130-400) K/uL BMP 04/03/19 11:56 Sodium 130 L Potassium 5.9 H Chloride 94 L Carbon Dioxide 33 H BUN 50 H Creatinine 2.22 H Glucose 352 H* Calcium 8.7 Liver Function 04/03/19 Range/Units 11:56 Total Bilirubin 0.6 (0.2-1) mg/dl AST 45 H (15-37) U/L ALT 40 (12-78) U/L Alkaline Phosphatase 166 H (45-117) U/L Albumin 2.5 L (3.4-5.0) gm/dl Urine 04/03/19 Range/Units 12:04 Urine Color Dark Yellow Urine Appearance Cloudy A (Clear) Urine pH 5.5 (4.5-7.5) Ur Specific [place] 1.024 (1.000-1.030) Urine Protein 1+ H (Negative) Urine Glucose (UA) 1+ H (Negative) Diagnostic Findings CT of the abdomen and pelvis: IMPRESSION: 1. Interval development of bibasilar parenchymal infiltrates.. 2. Nonobstructing upper pole right renal calcifications. 3. Normal appendix. 4. Considerable increase in fecal load of the ascending and transverse colon consistent with fecal stasis. CT of the head-negative Medications Administered Current Inpatient Medications Heparin Sodium (Porcine) (Heparin Sodium (Porcine)) 5,000 units SQ Q12 GEOVANNA Stop: 05/03/19 20:59 Vancomycin HCl 2,250 mg/ (Sodium Chloride) 545 mls @ 200 mls/hr IV NOW STA Stop: 04/03/19 17:07 Last Admin: 04/03/19 14:49 Dose: 200 mls/hr Documented by: Levofloxacin/Dextrose (Levaquin/D5w) 750 mg in 150 mls @ 100 mls/hr IV NOW ONE Stop: 04/03/19 15:59 Sodium Chloride (Nss 1000ml) 1,000 mls @ 125 mls/hr IV .Q8H GEOVANNA Stop: 04/04/19 15:14 Miscellaneous Information (Consult Glycemic Management Pharmacy) 1 ea N/A NOW STA Stop: 04/03/19 15:13 Ondansetron HCl (Zofran) 4 mg IV Q6H PRN PRN Reason: Nausea Stop: 05/03/19 15:04 Code Status & VTE Plan VTE Prophylaxis Plan VTE Prophylaxis will be ordered: Yes (1) Respiratory failure with hypoxia and hypercapnia Chronicity: unspecified Qualified Code(s): J96.91 - Respiratory failure, unspecified with hypoxia; J96.92 - Respiratory failure, unspecified with hypercapnia
[2019-04-03] MEDS ORDERED: PHARMACY GLYCEMIC MGMT CONSULT SCH (15:45)
[2019-04-03] MEDS ORDERED: NON-FORMULARY MEDICATION (Dulaglutide [Trulicity] 1.5 MG) SQ SCH (16:09)
[2019-04-03] MEDS ORDERED: INFLUENZA VACCINE HIGH DOSE 65+ 0.5 ML SYR IM ONE (16:29)
[2019-04-03] MEDS ORDERED: INFLUENZA ADMINISTRATION CHARGE ONE (16:29)
[2019-04-03] MEDS ORDERED: INSULIN HUMAN REGULAR PER UNIT 10 UNITS in SYRINGE 9.9 ML IV ONE (16:35)
[2019-04-03] MEDS ORDERED: INSULIN GLARGINE SOLOSTAR 100 UNITS/ML 3 ML PEN SC ONE (16:45)
[2019-04-03] MEDS: methylPREDNISolone 40 MG in SYRINGE 0 ML IV SCH (16:56)
[2019-04-03] MEDS: INSULIN ASPART 100 UNITS/ML 3 ML PEN SQ SCH ×2 (16:56→20:52)
[2019-04-03] MEDS ORDERED: VANCOMYCIN CONSULT ACTIVE PRN (17:05)
[2019-04-03] MEDS: SODIUM CHLORIDE 0.9% 1000ML 1,000 ML IV SCH (17:08)
[2019-04-03 18:07] LABS: Basophils # (auto) 0.07 K/uL (0-0.2); Basophils % (auto) 0.6 %; Eosinophils # (auto) 0.14 K/uL (0-0.5); Eosinophils % (auto) 1.2 %; Hematocrit (blood only) 44.9 % (42-52); Hemoglobin 13.9 g/dL (14.0-18.0); Immature Granulocytes # (auto) 0.03 K/uL (0.00-0.02); Immature Granulocytes % (auto) 0.2 %; Lymphocytes % (auto) 10.7 %; Mean Corpuscular Volume 90.3 fL (80-100); Mean Platelet Volume 9.2 fL (7.4-10.4); Monocytes # (auto) 0.89 K/uL (0.11-0.59); Monocytes % (auto) 7.3 %; Neutrophils # (auto) 9.71 K/uL (1.4-6.5); Platelet Count 164 K/uL (130-400); RDW Coefficient of Variation 14.7 % (11.5-14.5); RDW Standard Deviation 48.6 fL (36.4-46.3); Red Blood Count 4.97 M/uL (4.7-6.1); White Blood Count 12.14 K/uL (4.8-10.8)
--- NOTE | 2019-04-03 18:11 | Emergency Department Note ---
Entered by Lelia Grossman acting as a scribe for Carlo Newsome MD History of Present Illness General Chief complaint: Unresponsive Time Seen by Provider: 04/03/19 11:40 Source: patient History of Present Illness Provider complaint: unresponsive Onset (ago): hour(s) 1 Location: head Relieved By: + none Exacerbated By: + none Associated symptoms: + denies other symptoms Treatments prior to arrival: other (Tylenol) The patient is a 68 year old male w/ PMHx diabetes, dementia, Parkinson's disease, HTN, and DVT who presents to the ED w/ CC of unresponsiveness beginning an hour ago. The patients states that his eyes were closed and he was not responding him when she found him. She reports that the patient has a history of dementia, Parkinsons disease, and diabetes. She reports that he took his medications and ate normally this morning. She mentions that the patient was on antibiotics for the past 10 days for a UTI. She reports that he takes pain medications regularly. She notes that he has a history of b ack surgeries and hip replacements. She states that he is a non-smoker. She mentions that he has a history of TIAs. Per EMS, the patients sugar was [address] to the ED. They report that the patient was given 1 gram of Tylenol ENTRY OPERATOR. Home Medications Home Medications Medication Instructions Recorded Confirmed Type Namzaric 1 cap PO DAILY 05/03/18 04/03/19 History aspirin [Aspir-81] 81 mg PO DAILY 05/03/18 04/03/19 History cholecalciferol (vitamin D3) 400 unit PO DAILY 05/03/18 04/03/19 History [Vitamin D3] cyclobenzaprine 10 mg PO TID 05/03/18 04/03/19 History docusate sodium [Colace] 100 mg PO DAILY PRN 05/03/18 04/03/19 History multivitamin 1 tab PO DAILY 05/03/18 04/03/19 History oxycodone-acetaminophen [Percocet] 1 tab PO QID PRN 05/03/18 04/03/19 History propranolol 20 mg PO BID 05/03/18 04/03/19 History ropinirole 1 mg PO BID 05/03/18 04/03/19 History amlodipine 5 mg PO DAILY 04/03/19 04/03/19 History atorvastatin 10 mg PO DAILY 04/03/19 04/03/19 History dulaglutide [Trulicity] 1.5 mg SUBCUT WK 04/03/19 04/03/19 History gabapentin 400 mg PO TID 04/03/19 04/03/19 History insulin aspart U-100 [Novolog See Rx Instructions .ROUTE .COMPLEX 04/03/19 04/03/19 History Flexpen U-100 Insulin] insulin degludec [Tresiba 60 unit SUBCUT BID 04/03/19 04/03/19 History FlexTouch U-200] magnesium oxide 400 mg PO BID 04/03/19 04/03/19 History morphine 10 mg PO BID 04/03/19 04/03/19 History Allergies Allergy/AdvReac Type Severity Reaction Status Date / Time No Known Allergies Allergy Unverified 04/03/19 12:46 Past Med/Surg History Medical History Dementia (Chronic) Diabetes (Chronic) Hypertension (Chronic) Mini stroke Parkinson's disease (Chronic) Surgical History History of hip replacement, total (Chronic) Hx of cholecystectomy (Chronic) Social History Preferred Language: Setswana Communication Ability: Impaired Communication Ability Comment: patient unresponsive, responds only to pain and movement Hotel Manager Required: No Beliefs That Will Affect Care: None marital status: Current Living Situation: Spouse and Family Current Living Situation Comment: AND 3 CHILDREN Other Information That Helps Us Care for You: No Feels Safe at Home: Yes Safety Concerns: Feels Safe At This Time Smoking Status: Never smoker Do You Dip or Chew Tobacco: No ; Second Hand Exposure: No ; Tobacco Cessation Education Requested by Patient: No Hx Alcohol Use: No Hx Substance Use: No Review of Systems See HPI for pertinent positives & negatives. and A total of 10 systems reviewed and were otherwise negative Physical Exam Vital Signs Vital Signs - 24 hr 04/03/19 11:46 04/03/19 12:00 04/03/19 12:02 Temperature 38.2 C H Temperature Source Oral Pulse Rate 97 H 94 H Pulse Rate [Apical] Pulse Rate from SpO2 Sensor Respiratory Rate 15 20 Blood Pressure 113/59 L Blood Pressure [Left Arm] Blood Pressure Mean 77 Blood Pressure Mean [Left Arm] Pulse Oximetry 96 92 94 Oxygen Delivery Method Non-rebreather CPAP Non-rebreather Oxygen Flow Rate 10 10 Fraction of Inspired Oxygen 30 Sepsis Recent Fever Within 48 Hours Yes Sepsis New/Unexplained Change in Mental Status Yes Sepsis Action Taken by Nursing No Action Required 04/03/19 12:34 04/03/19 12:50 04/03/19 12:59 Temperature Temperature Source Pulse Rate 87 Pulse Rate [Apical] 89 83 Pulse Rate from SpO2 Sensor 87 Respiratory Rate 18 18 Blood Pressure 105/62 Blood Pressure [Left Arm] 105/62 Blood Pressure Mean 77 Blood Pressure Mean [Left Arm] 76 Pulse Oximetry 95 93 Oxygen Delivery Method BiPAP BiPAP Oxygen Flow Rate Fraction of Inspired Oxygen 40 40 Sepsis Recent Fever Within 48 Hours Sepsis New/Unexplained Change in Mental Status Sepsis Action Taken by Nursing 04/03/19 13:00 04/03/19 13:02 04/03/19 13:38 Temperature Temperature Source Pulse Rate 88 87 88 Pulse Rate [Apical] Pulse Rate from SpO2 Sensor 87 87 87 Respiratory Rate 18 16 20 Blood Pressure 118/65 109/63 Blood Pressure [Left Arm] Blood Pressure Mean 81 78 Blood Pressure Mean [Left Arm] Pulse Oximetry 97 97 93 Oxygen Delivery Method BiPAP Oxygen Flow Rate Fraction of Inspired Oxygen 40 Sepsis Recent Fever Within 48 Hours Sepsis New/Unexplained Change in Mental Status Sepsis Action Taken by Nursing 04/03/19 13:40 04/03/19 13:45 04/03/19 14:00 Temperature Temperature Source Pulse Rate 87 87 86 Pulse Rate [Apical] Pulse Rate from SpO2 Sensor 87 86 86 Respiratory Rate 21 15 17 Blood Pressure 109/63 108/63 Blood Pressure [Left Arm] Blood Pressure Mean 85 83 Blood Pressure Mean [Left Arm] Pulse Oximetry 96 95 94 Oxygen Delivery Method Oxygen Flow Rate Fraction of Inspired Oxygen Sepsis Recent Fever Within 48 Hours Sepsis New/Unexplained Change in Mental Status Sepsis Action Taken by Nursing 04/03/19 14:15 04/03/19 14:30 04/03/19 14:45 Temperature Temperature Source Pulse Rate 86 86 85 Pulse Rate [Apical] Pulse Rate from SpO2 Sensor 86 85 86 Respiratory Rate 16 18 24 Blood Pressure 110/66 Blood Pressure [Left Arm] Blood Pressure Mean 85 Blood Pressure Mean [Left Arm] Pulse Oximetry 92 92 93 Oxygen Delivery Method Oxygen Flow Rate Fraction of Inspired Oxygen Sepsis Recent Fever Within 48 Hours Sepsis New/Unexplained Change in Mental Status Sepsis Action Taken by Nursing 04/03/19 15:00 Temperature Temperature Source Pulse Rate 86 Pulse Rate [Apical] Pulse Rate from SpO2 Sensor 86 Respiratory Rate 16 Blood Pressure 115/64 Blood Pressure [Left Arm] Blood Pressure Mean 79 Blood Pressure Mean [Left Arm] Pulse Oximetry 93 Oxygen Delivery Method BiPAP Oxygen Flow Rate Fraction of Inspired Oxygen 40 Sepsis Recent Fever Within 48 Hours Sepsis New/Unexplained Change in Mental Status Sepsis Action Taken by Nursing GENERAL: Well nourished, moderate distress, non-toxic. EYE EXAM: Normal conjunctiva. PERRL, no anisocoria and EOM's grossly intact w/o pain. OROPHARYNX: Dry mucous membranes. Grossly normal dentition. NECK: Supple, no nuchal rigidity, no adenopathy, non-tender. No signs of meningismus. LUNGS: Clear to auscultation. Normal chest wall mechanics. HEART: NSR, no MRG. ABDOMEN: Abdomen soft, non-tender, normo-active bowel sounds, no masses, no rebound or guarding. BACK: No CVA TTP. SKIN: No rashes and no bruising. UPPER EXTREMITIES: Upper extremities are grossly normal. LOWER EXTREMITIES: No pitting edema. No calf pain. NEURO EXAM: Decreased responsiveness, moves all four extremities, responds to pain stimulus, does not open eyes, speaks single words. Course Course 1141: The patient was evaluated in room B1, and a complete history and physical examination were performed. 1145: The patient was placed on a pack press operator which showed sinus rhythm and a rate of 93. 1155: The respiratory team is at bedside. The patient is currently 96% on 10 l iters of non room air breather. The patient will have a repeat MRI. 1230: ABG showed pH of 7.3. pCO2 of 61, and pO2 of 66. 1427: I reviewed the patient's case with Karen Gonzalez. Dr. Dino Gonzalez Hospitalist will evaluate the patient for further management. 1438: I updated the family on the patient's treatment plan. Administered Medications Albuterol (Ventolin 0.083% 2.5mg/3ml) 2.5 mg NEB Q6R GEOVANNA Stop: 05/03/19 18:59 Last Admin: 04/04/19 13:23 Dose: 2.5 mg Documented by: [id number] Admin: 04/04/19 07:12 Dose: 2.5 mg Documented by: [id number] Admin: 04/04/19 01:10 Dose: 2.5 mg Documented by: [id number] Admin: 04/03/19 19:18 Dose: 2.5 mg Documented by: [id number] Heparin Sodium (Porcine) (Heparin Sodium (Porcine)) 5,000 units SQ Q12 GEOVANNA Stop: 05/03/19 20:59 Last Admin: 04/04/19 08:40 Dose: 5,000 units Documented by: [id number] Cosigned by: [id number] Admin: 04/03/19 20:52 Dose: 5,000 units Documented by: [id number] Cosigned by: [id number] Doxycycline Hyclate 100 mg/ (Dextrose) 110 mls @ 50 mls/hr IV Q12H GEOVANNA; Protocol Stop: 04/11/19 09:14 Last Infusion: 04/04/19 12:30 Dose: 0 mls/hr Documented by: [id number] Admin: 04/04/19 10:15 Dose: 50 mls/hr Documented by: [id number] Piperacillin Sod/Tazobactam (Sod 4.5 gm/ Dextrose) 120 mls @ 30 mls/hr IV Q8H GEOVANNA; Protocol Stop: 04/11/19 14:29 Last Admin: 04/04/19 15:06 Dose: 30 mls/hr Documented by: [id number] Insulin Aspart (Novolog Flexpen) 0 units SQ Q4 GEOVANNA Stop: 05/03/19 16:39 Last Admin: 04/04/19 12:31 Dose: 15 units Documented by: [id number] Cosigned by: [id number] Admin: 04/04/19 08:40 Dose: 11 units Documented by: [id number] Cosigned by: [id number] Admin: 04/04/19 04:16 Dose: 13 units Documented by: [id number] Cosigned by: [id number] Admin: 04/04/19 00:17 Dose: 20 units Documented by: [id number] Cosigned by: [id number] Admin: 04/03/19 20:52 Dose: 15 units Documented by: [id number] Cosigned by: [id number] Admin: 04/03/19 16:56 Dose: 19 units Documented by: [id number] Cosigned by: [id number] Discontinued Medications Albuterol (Duoneb) 12 ml NEB ONE ONE Stop: 04/03/19 12:50 Last Admin: 04/03/19 12:58 Dose: 12 ml Documented by: [id number] Sodium Chloride (Nss 1000ml) 1,000 mls @ 999 mls/hr IV .Q1H1M GEOVANNA Stop: 04/03/19 13:00 Last Infusion: 04/03/19 12:55 Dose: 0 mls/hr Documented by: [id number] Admin: 04/03/19 11:54 Dose: 999 mls/hr Documented by: [id number] Naloxone HCl 1 mg/ Sodium (Chloride) 1,002.5 mls @ 0 mls/hr IV .Q0M STA Stop: 04/03/19 11:51 Last Admin: 04/03/19 12:18 Dose: Not Given Documented by: [id number] Piperacillin Sod/Tazobactam Sod (Zosyn) 4.5 gm in 120 mls @ 240 mls/hr IV NOW ONE Stop: 04/03/19 13:29 Last Infusion: 04/03/19 13:30 Dose: 0 mls/hr Documented by: [id number] Admin: 04/03/19 13:00 Dose: 240 mls/hr Documented by: [id number] Vancomycin HCl 2,250 mg/ (Sodium Chloride) 545 mls @ 200 mls/hr IV NOW STA Stop: 04/03/19 17:07 Last Infusion: 04/03/19 17:35 Dose: 0 mls/hr Documented by: [id number] Admin: 04/03/19 14:49 Dose: 200 mls/hr Documented by: [id number] Levofloxacin/Dextrose (Levaquin/D5w) 750 mg in 150 mls @ 100 mls/hr IV NOW ONE Stop: 04/03/19 15:59 Last Infusion: 04/03/19 17:00 Dose: 0 mls/hr Documented by: [id number] Admin: 04/03/19 15:26 Dose: 100 mls/hr Documented by: [id number] Sodium Chloride (Nss 1000ml) 1,000 mls @ 125 mls/hr IV .Q8H GEOVANNA Stop: 04/04/19 15:14 Last Admin: 04/04/19 08:41 Dose: 125 mls/hr Documented by: [id number] Infusion: 04/04/19 08:17 Dose: 125 mls/hr Documented by: [id number] Admin: 04/04/19 00:17 Dose: 125 mls/hr Documented by: [id number] Infusion: 04/04/19 00:17 Dose: 125 mls/hr Documented by: [id number] Admin: 04/03/19 17:08 Dose: 125 mls/hr Documented by: [id number] Methylprednisolone 40 mg/ (Syringe) 0.64 mls @ 1.5 mls/min IV Q8H GEOVANNA Stop: 05/03/19 15:59 Last Admin: 04/04/19 08:40 Dose: 1.5 mls/min Documented by: [id number] Admin: 04/04/19 00:17 Dose: 1.5 mls/min Documented by: [id number] Admin: 04/03/19 16:56 Dose: 1.5 mls/min Documented by: [id number] Insulin Human Regular 10 units (/ Syringe) 10 mls @ 10 mls/min IV NOW ONE Stop: 04/03/19 16:36 Last Admin: 04/03/19 16:56 Dose: 10 mls/min Documented by: [id number] Cosigned by: [id number] Piperacillin Sod/Tazobactam (Sod 4.5 gm/ Dextrose) 120 mls @ 200 mls/hr IV NOW ONE; Protocol Stop: 04/04/19 09:50 Last Infusion: 04/04/19 10:55 Dose: 0 mls/hr Documented by: [id number] Admin: 04/04/19 10:15 Dose: 200 mls/hr Documented by: [id number] Insulin Aspart (Novolog Flexpen) 13 units SQ NOW ONE Stop: 04/03/19 21:01 Last Admin: 04/03/19 21:04 Dose: 13 units Documented by: [id number] Cosigned by: [id number] Insulin Glargine (Lantus Solostar Pen) 70 units SC NOW ONE; Protocol Stop: 04/03/19 16:46 Last Admin: 04/03/19 16:58 Dose: 70 units Documented by: [id number] Cosigned by: [id number] Insulin Glargine (Lantus Solostar Pen) 60 units SC BID GEOVANNA; Protocol Stop: 05/04/19 08:59 Last Admin: 04/04/19 08:39 Dose: 60 units Documented by: [id number] Cosigned by: [id number] Insulin Glargine (Lantus Solostar Pen) 10 units SC NOW ONE; Protocol Stop: 04/04/19 12:31 Last Admin: 04/04/19 12:31 Dose: 10 units Documented by: [id number] Cosigned by: [id number] Naloxone HCl (Narcan) Confirm Administered Dose 0.4 mg .ROUTE .STK-MED ONE Stop: 04/03/19 11:50 Last Admin: 04/03/19 11:54 Dose: 0.4 mg Documented by: [id number] Admin: 04/03/19 11:54 Dose: 0.4 mg Documented by: [id number] Naloxone HCl (Narcan) Confirm Administered Dose 1.2 mg .ROUTE .STK-MED ONE Stop: 04/03/19 12:10 Last Admin: 04/03/19 12:17 Dose: 0.4 mg Documented by: [id number] Critical Care Time Critical Care Time: Yes Total Critical Care Time: 75 I have personally spent 75 minutes of critical care time in the direct management of this patient. This includes bedside care, interpretation of diagnostic studies, and testing, discussion with consultants, patient, and f amily members, and other required patient management activities. This 75 minutes is in excess of all separately billable procedures. Medical Decision Making Medical Records Attestation: I reviewed the patient's medical records. Home Medications Current Medication List: was personally reviewed by me Laboratory Data Attestation: I reviewed the patient's lab results. Result diagrams: 04/04/19 05:51 04/04/19 12:00 Lab Results 04/03/19 04/03/19 04/03/19 Range/Units 11:52 11:56 11:56 WBC 15.50 H (4.8-10.8) K/uL RBC 4.78 (4.7-6.1) M/uL Hgb 13.7 L (14.0-18.0) g/dL POC Hgb (14.0-18.0) g/dl Hct 43.2 (42-52) % POC Hct (42-52) % MCV 90.4 (80-100) fL MCH 28.7 (25-34) pg MCHC 31.7 L (32-36) g/dL RDW Std Deviation 48.9 H (36.4-46.3) fL RDW Coeff of Apollo 14.7 H (11.5-14.5) % Plt Count 201 (130-400) K/uL MPV 9.0 (7.4-10.4) fL Immature Gran % (Auto) 0.1 % Neut % (Auto) 76.4 % Lymph % (Auto) 11.7 % Esmeralda % (Auto) 9.2 % Eos % (Auto) 1.6 % Baso % (Auto) 1.0 % Immature Gran # (Auto) 0.02 (0.00-0.02) K/uL Neut # (Auto) 11.84 H (1.4-6.5) K/uL Lymph # (Auto) 1.81 (1.2-3.4) K/uL Esmeralda # (Auto) 1.42 H (0.11-0.59) K/uL Eos # (Auto) 0.25 (0-0.5) K/uL Baso # (Auto) 0.16 (0-0.2) K/uL Specimen Type POC pH (7.35-7.45) POC pCO2 (35-46) mmHg POC pO2 (80-95) mmHg POC HCO3 (19-24) meliton/L POC Total CO2 (24-31) mmol/L POC Base Excess (-9-1.8) meliton/L POC Sodium (135-144) mmol/L Sodium 130 L (136-145) mmol/L POC Potassium (3.3-5.0) mmol/L Potassium 5.9 H (3.5-5.1) mmol/L Chloride 94 L (98-107) mmol/L Carbon Dioxide 33 H (21-32) mmol/L Anion Gap 3.0 (3-11) BUN 50 H (7-18) mg/dl Creatinine 2.22 H (0.6-1.4) mg/dl Est Cr Clr Drug Dosing 40.2 ml/min Est GFR ( Amer) 33.6 Est GFR (Non-Af Amer) 28.9 BUN/Creatinine Ratio 22.7 H (10-20) Glucose 352 H* (70-99) mg/dl POC Glucose 339 H* (70-99) mg/dl Lactate (0.4-2.0) mmol/L Calcium 8.7 (8.5-10.1) mg/dl Magnesium 2.9 H (1.8-2.4) mg/dl Total Bilirubin 0.6 (0.2-1) mg/dl AST 45 H (15-37) U/L ALT 40 (12-78) U/L Alkaline Phosphatase 166 H (45-117) U/L Total Protein 7.8 (6.4-8.2) gm/dl Albumin 2.5 L (3.4-5.0) gm/dl Globulin 5.3 H (2.5-4.0) gm/dl Albumin/Globulin Ratio 0.5 L (0.9-2) Beta-Hydroxybutyric Acd 1.14 (0.2-2.81) mg/dl TSH 0.505 (0.300-4.500) uIu/ml Urine Color Urine Appearance (Clear) Urine pH (4.5-7.5) Ur Specific [place] (1.000-1.030) Urine Protein (Negative) Urine Glucose (UA) (Negative) Urine Ketones (Negative) Urine Blood (Negative) Urine Nitrite (Negative) Urine Bilirubin (Negative) Urine Urobilinogen (Negative) Ur Leukocyte Esterase (Negative) Urine WBC (Auto) (0-5) /hpf Urine RBC (Auto) (0-4) /hpf U Hyaline Cast (Auto) (0-5) /lpf U Epithel Cells (Auto) (0-5) /lpf Urine Bacteria (Auto) (Negative) Ur Renal Epithelial Cell (0-5) /lpf Amorphous Sediment (None Prsent) Granular Casts (0) /lpf Urine Yeast 04/03/19 04/03/19 04/03/19 Range/Units 11:56 12:04 12:29 WBC (4.8-10.8) K/uL RBC (4.7-6.1) M/uL Hgb (14.0-18.0) g/dL POC Hgb 13.9 L (14.0-18.0) g/dl Hct (42-52) % POC Hct 41 L (42-52) % MCV (80-100) fL MCH (25-34) pg MCHC (32-36) g/dL RDW Std Deviation (36.4-46.3) fL RDW Coeff of Apollo (11.5-14.5) % Plt Count (130-400) K/uL MPV (7.4-10.4) fL Immature Gran % (Auto) % Neut % (Auto) % Lymph % (Auto) % Esmeralda % (Auto) % Eos % (Auto) % Baso % (Auto) % Immature Gran # (Auto) (0.00-0.02) K/uL Neut # (Auto) (1.4-6.5) K/uL Lymph # (Auto) (1.2-3.4) K/uL Esmeralda # (Auto) (0.11-0.59) K/uL Eos # (Auto) (0-0.5) K/uL Baso # (Auto) (0-0.2) K/uL Specimen Type Arterial POC pH 7.31 L (7.35-7.45) POC pCO2 61 H (35-46) mmHg POC pO2 66 L (80-95) mmHg POC HCO3 31 H (19-24) meliton/L POC Total CO2 32 H (24-31) mmol/L POC Base Excess 4.0 H (-9-1.8) meliton/L POC Sodium 133 L (135-144) mmol/L Sodium (136-145) mmol/L POC Potassium 5.0 (3.3-5.0) mmol/L Potassium (3.5-5.1) mmol/L Chloride (98-107) mmol/L Carbon Dioxide (21-32) mmol/L Anion Gap (3-11) BUN (7-18) mg/dl Creatinine (0.6-1.4) mg/dl Est Cr Clr Drug Dosing ml/min Est GFR ( Amer) Est GFR (Non-Af Amer) BUN/Creatinine Ratio (10-20) Glucose (70-99) mg/dl POC Glucose (70-99) mg/dl Lactate 1.3 (0.4-2.0) mmol/L Calcium (8.5-10.1) mg/dl Magnesium (1.8-2.4) mg/dl Total Bilirubin (0.2-1) mg/dl AST (15-37) U/L ALT (12-78) U/L Alkaline Phosphatase (45-117) U/L Total Protein (6.4-8.2) gm/dl Albumin (3.4-5.0) gm/dl Globulin (2.5-4.0) gm/dl Albumin/Globulin Ratio (0.9-2) Beta-Hydroxybutyric Acd (0.2-2.81) mg/dl TSH (0.300-4.500) uIu/ml Urine Color Dark Yellow Urine Appearance Cloudy A (Clear) Urine pH 5.5 (4.5-7.5) Ur Specific [place] 1.024 (1.000-1.030) Urine Protein 1+ H (Negative) Urine Glucose (UA) 1+ H (Negative) Urine Ketones Negative (Negative) Urine Blood 2+ H (Negative) Urine Nitrite Positive A (Negative) Urine Bilirubin Negative (Negative) Urine Urobilinogen Negative (Negative) Ur Leukocyte Esterase 2+ H (Negative) Urine WBC (Auto) >30 H (0-5) /hpf Urine RBC (Auto) 0-4 (0-4) /hpf U Hyaline Cast (Auto) 10-30 H (0-5) /lpf U Epithel Cells (Auto) 5-10 H (0-5) /lpf Urine Bacteria (Auto) 1+ H (Negative) Ur Renal Epithelial Cell 0-5 (0-5) /lpf Amorphous Sediment Present A (None Prsent) Granular Casts 5-10 H (0) /lpf Urine Yeast Not Reportable 04/03/19 Range/Units 12:49 WBC (4.8-10.8) K/uL RBC (4.7-6.1) M/uL Hgb (14.0-18.0) g/dL POC Hgb (14.0-18.0) g/dl Hct (42-52) % POC Hct (42-52) % MCV (80-100) fL MCH (25-34) pg MCHC (32-36) g/dL RDW Std Deviation (36.4-46.3) fL RDW Coeff of Apollo (11.5-14.5) % Plt Count (130-400) K/uL MPV (7.4-10.4) fL Immature Gran % (Auto) % Neut % (Auto) % Lymph % (Auto) % Esmeralda % (Auto) % Eos % (Auto) % Baso % (Auto) % Immature Gran # (Auto) (0.00-0.02) K/uL Neut # (Auto) (1.4-6.5) K/uL Lymph # (Auto) (1.2-3.4) K/uL Esmeralda # (Auto) (0.11-0.59) K/uL Eos # (Auto) (0-0.5) K/uL Baso # (Auto) (0-0.2) K/uL Specimen Type POC pH (7.35-7.45) POC pCO2 (35-46) mmHg POC pO2 (80-95) mmHg POC HCO3 (19-24) meliton/L POC Total CO2 (24-31) mmol/L POC Base Excess (-9-1.8) meliton/L POC Sodium (135-144) mmol/L Sodium (136-145) mmol/L POC Potassium (3.3-5.0) mmol/L Potassium (3.5-5.1) mmol/L Chloride (98-107) mmol/L Carbon Dioxide (21-32) mmol/L Anion Gap (3-11) BUN (7-18) mg/dl Creatinine (0.6-1.4) mg/dl Est Cr Clr Drug Dosing ml/min Est GFR ( Amer) Est GFR (Non-Af Amer) BUN/Creatinine Ratio (10-20) Glucose (70-99) mg/dl POC Glucose 298 H (70-99) mg/dl Lactate (0.4-2.0) mmol/L Calcium (8.5-10.1) mg/dl Magnesium (1.8-2.4) mg/dl Total Bilirubin (0.2-1) mg/dl AST (15-37) U/L ALT (12-78) U/L Alkaline Phosphatase (45-117) U/L Total Protein (6.4-8.2) gm/dl Albumin (3.4-5.0) gm/dl Globulin (2.5-4.0) gm/dl Albumin/Globulin Ratio (0.9-2) Beta-Hydroxybutyric Acd (0.2-2.81) mg/dl TSH (0.300-4.500) uIu/ml Urine Color Urine Appearance (Clear) Urine pH (4.5-7.5) Ur Specific [place] (1.000-1.030) Urine Protein (Negative) Urine Glucose (UA) (Negative) Urine Ketones (Negative) Urine Blood (Negative) Urine Nitrite (Negative) Urine Bilirubin (Negative) Urine Urobilinogen (Negative) Ur Leukocyte Esterase (Negative) Urine WBC (Auto) (0-5) /hpf Urine RBC (Auto) (0-4) /hpf U Hyaline Cast (Auto) (0-5) /lpf U Epithel Cells (Auto) (0-5) /lpf Urine Bacteria (Auto) (Negative) Ur Renal Epithelial Cell (0-5) /lpf Amorphous Sediment (None Prsent) Granular Casts (0) /lpf Urine Yeast Imaging Data Radiologist's Impression: Radiology results as stated below per my review and the radiologist's interpretation: XR chest 1V portable CLINICAL HISTORY: weakness COMPARISON STUDY: 05/06/2018 FINDINGS: The heart is borderline enlarged. There is mild elevation right hemidiaphragm. There is no acute parenchymal consolidation. There is mild basilar atelectasis. There is no failure.[ IMPRESSION: Stable mild cardiomegaly. Mild elevation of the right hemidiaphragm. Mild basilar atelectasis. ACT 112: Negative or not required by law. Electronically signed by: Kenny Goodrich M.D. 04/03/2019 12:[address] head/brain wo con CLINICAL HISTORY: Acute change in mental status. History of Parkinson's dementia. COMPARISON STUDY: 05/03/2018 TECHNIQUE: Axial CT of the brain is performed from the vertex to the skull base. IV contrast was not administered for this examination. A dose lowering technique was utilized adhering to the principles of ALARA. CT DOSE: 729.78 mGycm FINDINGS: No intra or extra-axial mass lesions are visualized. There is no CT evidence of acute cortical infarction. There is no evidence of midline shift. There is no a cute hemorrhage. No calvarial fractures are visualized. There are patchy white matter hypodensities likely on a small vessel basis. There is minor ventricular prominence which is felt to be secondary to volume loss. This remain stable There is no evidence of acute sinusitis IMPRESSION: No acute intracranial findings ACT 112: Negative or not required by law. Electronically signed by: Kenny Goodrich M.D. 04/03/2019 1:[address] abd pelvis wo con CT DOSE: 1073.66 mGycm HISTORY: Sepsis. Hematuria. septic, UTI, r/o stones/obstruction, hematuria TECHNIQUE: Multiaxial CT images of the abdomen and pelvis were performed without contrast. A dose lowering technique was utilized adhering to the principles of ALARA. COMPARISON STUDY: 03/07/2014 FINDINGS: Interval development of bibasilar parenchymal infiltrates. The liver spleen and pancreas are grossly unremarkable. There are several nonobstructing upper pole right renal calcifications. There is no evidence for an obstructing urinary tract calculus. The appendix is normal. Bowel pattern is considered nonobstructive. There are findings of increased fecal load within the cecum, ascending colon, as well as proximal to mid transverse colonic regions. Bladder is midline. There is a Blevins catheter within the bladder. There are small fat-containing bilateral inguinal hernias. There is no evidence for bowel containment incarceration or obstructive change. IMPRESSION: 1. Interval development of bibasilar parenchymal infiltrates.. 2. Nonobstructing upper pole right renal calcifications. 3. Normal appendix. 4. Considerable increase in fecal load of the ascending and transverse colon consistent with fecal stasis. ACT 112: Negative or not required by law. The above report was generated using voice recognition software. It may contain grammatical, syntax or spelling errors. Electronically signed by: Dayne Cannon M.D. 04/03/2019 1:46 PM ECG Data Attestation: I personally reviewed and interpreted this ECG as follows: Indication: + weakness Rate (beats per minute): 93 Rhythm: + sinus rhythm ECG ST segments: no ST depression and no ST elevation ECG Findings: no PACs and no PVCs Blood Pressure Blood Pressure Findings: Low blood pressure Blood Pressure Disposition: did not require urgent referral MDM Narrative Differential diagnosis: Etiologies such as metabolic, infection, hypo/hyperglycemia, electrolyte abnormalities, cardiac sources, intracerebral event, toxicologic, neurologic, as well as others were entertained. The patient is a 68 year old male w/ PMHx diabetes, dementia, Parkinson's disease, HTN, and DVT who presents to the ED w/ CC of unresponsiveness beginning an hour ago. Patient was seen and evaluated at the bedside. I did receive a medical command call due to concern for patient with a febrile type illness and associated hypoxia. The patient was placed on nonrebreather. The patient did respond to painful and verbal stimuli on occasion. The patient does move all 4 extremities. The patient had a bladder completed along with a CT the head as well as a CT of the abdomen pelvis as the patient did have concern for UTI. This is likely UTI resistant as the patient recently completed a course of Bactrim. The patient did have an ABG ordered. The patient's ABG did show that he did have elevated CO2 with a pH of 7 3.Was still maintaining good saturations. The patient was given additional IV fluids. The patient had good urine output. The patient has chronic but stable kidney disease but with an elevated potassium of 5.9. The patient was started on hour-long DuoNeb. CT the abdomen pelvis that showed the patient does have lower respiratory infection so he was broadened out his coverage from not just to Zosyn for the UTI but additionally vancomycin as well as atypical coverage. I did speak the on-call hospitalist agreed to further evaluate treat the patient. The patient had also been given 2 dose of Narcan as the patient had been on pain medications in order to see if that would improve his status. This only somewhat improved status but the patient was maintaining his her airway well on BiPAP. Impression & Plan Sepsis, Respiratory failure with hypoxia and hypercapnia, UTI (urinary tract infection) Discharge Plan Visit Data *Final* Discharge Date/Time: 04/03/19 16:01 Chief Complaint: Unresponsive ED Provider: Carlo Newsome Discharge Problem: Sepsis, Respiratory failure with hypoxia and hypercapnia, UTI (urinary tract infection) Patient Disposition: Admitted As Inpatient Discharge Instructions Interventions: ED Discharge Assessment Last Done: 04/03/19 16:01 Discharge Problem: Sepsis Qualifiers: Sepsis type: sepsis due to unspecified organism Sepsis acute organ dysfunction status: unspecified Qualified Code(s): A41.9 - Sepsis, unspecified organism Respiratory failure with hypoxia and hypercapnia Qualifiers: Chronicity: unspecified Qualified Code(s): J96.91 - Respiratory failure, unspecified with hypoxia UTI (urinary tract infection) Qualifiers: Urinary tract infection type: site unspecified Hematuria presence: without hematuria Qualified Code(s): N39.0 - Urinary tract infection, site not specified The scribe's documentation has been prepared under my direction and personally reviewed by me in its entirety. I confirm that the note above accurately reflects all work, treatment, procedures, and medical decision making performed by me.
--- NOTE | 2019-04-03 18:17 | Pharmacy Report ---
Pharmacy Abx Initial Consult - Date of Service April 03, 2019 - Pharmacy Dosing Scope Date of Consult: 04/03/19 Consultation requested by: Dr. Chau Pharmacy is consulted to initiate Vancomycin IV dosing therapy, order appropriate labs and adjust drug dose/frequency. - Subjective The patient is a 68 year old M admitted on 04/03/19 15:06. - Objective Height: 5 ft 11 in Weight: 116.7 kg Vital Signs (Past 12hrs): Vital Signs Temp Pulse Pulse Resp BP BP BP 04/03/19 16:10 83 04/03/19 16:00 36.7 C 83 12 109/82 04/03/19 15:00 86 16 115/64 04/03/19 14:45 85 24 04/03/19 14:30 86 18 110/66 04/03/19 14:15 86 16 04/03/19 14:00 86 17 108/63 04/03/19 13:45 87 15 04/03/19 13:40 87 21 109/63 04/03/19 13:38 88 20 109/63 04/03/19 13:02 87 16 04/03/19 13:00 88 18 118/65 04/03/19 12:59 83 18 04/03/19 12:34 87 89 18 105/62 105/62 04/03/19 12:02 94 H 20 04/03/19 12:00 04/03/19 11:46 38.2 C H 97 H 15 113/59 L Pulse Ox 04/03/19 16:10 04/03/19 16:00 94 04/03/19 15:00 93 04/03/19 14:45 93 04/03/19 14:30 92 04/03/19 14:15 92 04/03/19 14:00 94 04/03/19 13:45 95 04/03/19 13:40 96 04/03/19 13:38 93 04/03/19 13:02 97 04/03/19 13:00 97 04/03/19 12:59 93 04/03/19 12:34 95 04/03/19 12:02 94 04/03/19 12:00 92 04/03/19 11:46 96 Lab Results (24hrs): Laboratory Tests (24 Hours) 04/03/19 04/03/19 04/03/19 17:52 11:56 11:56 WBC 12.14 H 15.50 H Neut # (Auto) 9.71 H 11.84 H Creatinine 2.22 H Est Cr Clr Drug Dosing 40.2 Micro Results: 04/03/19 12:21 Aerobic Blood Culture - Pending Blood Anaerobic Blood Culture - Pending 04/03/19 12:04 Urine Culture - Pending Urine,Indwelling Cath 04/03/19 11:56 Aerobic Blood Culture - Pending Blood Anaerobic Blood Culture - Pending - Risk Factors for Resistance * Antimicrobial use within the last 90 days - Just completed course of Bactrim DS for UTI. - Assessment & Plan Assessment 68 year old M presents to the ED with his for progressive unresponsiveness. Patient having difficulty following verbal commands. Influenza negative. MRSA Swab pending. Blood cultures x2 pending. CXR shows bibasilar infiltrates Febrile in ED, tmax 38.2 Renal function appears to be at baseline, but do not have a lot of recent data. Pt given LD of Vanc, Zosyn, and Levaquin in the ED. Plan Vancomycin + Levaquin for treatment of pneumonia. Vancomycin IV * Estimated PK Parameters: Vd 0.7 L/kg, Erlin 0.037 hr-1, t1/2 18.4 hr * Loading dose: 2250 mg (19.3 mg/kg) * Maintenance dose: 1500 mg IV (12.9 mg/kg) every 24 hours * Goal trough level : 15 to 20 mcg/mL * Trough to be ordered with 3rd or 4th dose if patient still on vancomycin. * A less than traditional dose and extended dosing interval have been selected due to likelihood of drug accumulation in obese patient. Levofloxacin IV (dose adjusted per P&T renal dose adjustment protocol) * Patient received 750mg IV in the ED, continued by admitting provider. * CrCl 20-49 mL/min: Give 750mg IV every 48 hours. Pharmacy will continue to follow and will adjust dose/frequency as necessary. Thank you.
[2019-04-03 18:28] LABS: BUN Creatinine Ratio 23.7 (10-20); Calcium 8.2 mg/dl (8.5-10.1); Creatinine Clr Calc Pharmacy 41.9 ml/min; Est GFR (African American) 35.3; Est GFR (Non-African American) 30.4; Phosphorus 4.2 mg/dl (2.5-4.9); Potassium 5.5 mmol/L (3.5-5.1)
[2019-04-03 18:40] LABS: Beta-Hydroxybutyrate 0.93 mg/dl (0.2-2.81)
[2019-04-03] MEDS ORDERED: GLUCOSE 40% GEL 15 GM TUBE PO PRN (19:00)
[2019-04-03] MEDS ORDERED: DEXTROSE 50% 50 ML SYRINGE IV PRN (19:00)
[2019-04-03] MEDS ORDERED: CARBOHYDRATES FOR HYPOGLYCEMIA PO PRN (19:00)
[2019-04-03] MEDS ORDERED: GLUCAGON FOR INJ 1 MG VIAL IM PRN (19:00)
[2019-04-03] MEDS ORDERED: GLUCOSE 10 TABS/TUBE PO PRN (19:00)
--- NOTE | 2019-04-03 19:10 | Pharmacy Report ---
Pharmacy Glycemic Short Note 2 - Date of Service April 03, 2019 - Glycemic Short BSG Results (Last 24 hours): 04/03/19 04/03/19 04/03/19 11:52 11:56 12:49 Glucose 352 H* POC Glucose 339 H* 298 H 04/03/19 04/03/19 04/03/19 16:13 16:14 17:52 Glucose 341 H* POC Glucose 336 H* 340 H* 04/03/19 18:37 Glucose POC Glucose 310 H* OUTPATIENT ANTIDIABETIC REGIMEN: * Tresiba 60 units SQ BID (last taken this AM) * Trulicity 1.5mg SQ weekly (last taken 03/29) * Novolog up to 20 units SQ TID (up to 60 units daily) ASSESSMENT: * Patient presents to the ED with his for progressive "unresponsiveness". CXR shows bibasiliar infiltrates. Started on IV abxs and solu-medrol 40mg q8h. Patient also NPO. * BSGs in ED 352/339/298. * Last A1C from April 2018 9.4%. Updated lab ordered for tomorrow AM. * BSG 340 on arrival to unit around 1700. This is with 60 units of Tresiba on board prior to admission and no other correction prior to arrival on the unit. Patient had not received first dose of Solu-medrol IV yet. PLAN FOR INPATIENT GLYCEMIC CONTROL: * Basal insulin * Lantus 70 units x1 (about 20% increase from home dose). * Bolus insulin * 10 units Regular insulin IV x1 * NovoLog per scale Q4hrs * Goal Range: Low 120 mg/dL - High 150 mg/dL * Correction Factor: 10 mg/dL/unit * Nutritional / Prandial insulin per carb ratio of 1 unit per 5 grams CHO consumed PLAN FOR DISCHARGE: * to be assessed when insulin needs are determined and updated A1C obtained.
[2019-04-03 19:18] LABS: Amphetamines+Metham, Urine Neg (Neg); Barbiturates, Urine Neg (Neg); Benzodiazepine, Urine Neg (Neg); Cocaine, Urine Neg (Neg); MDMA (Ecstacy), Urine Neg (Neg); Methadone, Urine Neg (Neg); Opiate, Urine Pos (Neg); Phencyclidine, Urine Neg (Neg)
[2019-04-03] MEDS: ALBUTEROL 0.083% NEBU SOLN 3 ML VIAL NEB SCH (19:18)
[2019-04-03] MEDS: HEPARIN SOD 5,000 UNIT/0.5 ML VIAL SQ SCH (20:52)
[2019-04-03] MEDS ORDERED: INSULIN DEGLUDEC 60 UNIT SQ SCH (21:00)
[2019-04-03] MEDS ORDERED: INSULIN ASPART 100 UNITS/ML 3 ML PEN SQ ONE (21:00)
[2019-04-04] MEDS: SODIUM CHLORIDE 0.9% 1000ML 1,000 ML IV SCH ×2 (00:17→08:41)
[2019-04-04] MEDS: methylPREDNISolone 40 MG in SYRINGE 0 ML IV SCH ×3 (00:17→20:19)
[2019-04-04] MEDS: INSULIN ASPART 100 UNITS/ML 3 ML PEN SQ SCH ×6 (00:17→20:19)
[2019-04-04] MEDS: ALBUTEROL 0.083% NEBU SOLN 3 ML VIAL NEB SCH ×4 (01:10→19:31)
--- NOTE | 2019-04-04 06:13 | Electrocardiogram Report ---
Test Reason : Blood Pressure : / mmHG Vent. Rate : 093 BPM Atrial Rate : 093 BPM P-R Int : 204 ms QRS Dur : 116 ms QT Int : 364 ms P-R-T Axes : 040 -56 033 degrees QTc Int : 452 ms Normal sinus rhythm Left anterior fascicular block Abnormal ECG When compared with ECG of 03-MAY-2018 16:43, No significant change was found Confirmed by Arnold Ocampo ([id number]) on 04/04/2019 6:13:12 AM Referred By: Confirmed By:Arnold Ocampo
[2019-04-04 06:24] LABS: Basophils # (auto) 0.03 K/uL (0-0.2); Basophils % (auto) 0.4 %; Eosinophils # (auto) 0.01 K/uL (0-0.5); Eosinophils % (auto) 0.1 %; Hematocrit (blood only) 42.9 % (42-52); Hemoglobin 13.3 g/dL (14.0-18.0); Immature Granulocytes # (auto) 0.02 K/uL (0.00-0.02); Immature Granulocytes % (auto) 0.2 %; Lymphocytes # (auto) 0.89 K/uL (1.2-3.4); Lymphocytes % (auto) 10.9 %; Mean Corpuscular Hemoglobin 27.9 pg (25-34); Mean Corpuscular Volume 90.1 fL (80-100); Mean Platelet Volume 9.2 fL (7.4-10.4); Monocytes # (auto) 0.14 K/uL (0.11-0.59); Monocytes % (auto) 1.7 %; Neutrophils # (auto) 7.05 K/uL (1.4-6.5); Neutrophils % (auto) 86.7 %; Platelet Count 165 K/uL (130-400); RDW Coefficient of Variation 14.2 % (11.5-14.5); RDW Standard Deviation 46.9 fL (36.4-46.3); Red Blood Count 4.76 M/uL (4.7-6.1); White Blood Count 8.14 K/uL (4.8-10.8)
[2019-04-04 06:53] LABS: BUN Creatinine Ratio 28.9 (10-20); Calcium 8.7 mg/dl (8.5-10.1); Creatinine Clr Calc Pharmacy 55.5 ml/min; Est GFR (African American) 49.9; Potassium 5.3 mmol/L (3.5-5.1)
[2019-04-04 07:44] LABS: Estimated Average Glucose 269 mg/dl
[2019-04-04] MEDS: HEPARIN SOD 5,000 UNIT/0.5 ML VIAL SQ SCH ×2 (08:40→20:19)
[2019-04-04] MEDS ORDERED: INSULIN GLARGINE SOLOSTAR 100 UNITS/ML 3 ML PEN SC SCH (09:00)
[2019-04-04] MEDS ORDERED: CONSULT PHARMACY STA (09:03)
[2019-04-04] MEDS ORDERED: PIPERACILL/TAZOBAC CONSULT ACTIVE PRN (09:11)
[2019-04-04] MEDS ORDERED: PIPERACILLIN/TAZOBACTAM 4.5 GM in DEXTROSE 5% 100 ML IV ONE (09:15)
[2019-04-04 09:54] LABS: Base Excess ABG -0.4 mEq/L (-9-1.8); HCO3 ABG 29 mmol/L (19-24); Oxygen Saturation ABG 94.3 % (90-95); PCO2 ABG 69 mmHg (35-46); PO2 ABG 77 mmHg (80-95); pH ABG 7.24 (7.35-7.45)
[2019-04-04 09:55] LABS: Allen Test Pos (Pos)
[2019-04-04] MEDS: DOXYCYCLINE HYCLATE 100 MG in DEXTROSE 5% 100 ML IV SCH ×2 (10:15→20:23)
--- NOTE | 2019-04-04 10:31 | Hospitalist Progress Note ---
Date of Service delayed entry date of service note below April 04, 2019 Assessment & Plan (1) Metabolic encephalopathy: 68 year old male with history of Parkinson's, Dementia, DM 2, HTN presenting with altered mental status... Metabolic Encephalopathy secondary to Pneumonia, Hypercapneic and Hypoxic Respiratory Failure -CT abdomen/pelvis: 1. Interval development of bibasilar parenchymal infiltrates.. 2. Nonobstructing upper pole right renal calcifications. 3. Normal appendix. 4. Considerable increase in fecal load of the ascending and transverse colon consistent with fecal stasis. - ABG: ph worsened from 7.31 to 7.24, CO2 further increased - Nasal MRSA: negative - continue Bipap, antibiotics broadened to Zoysn + Doxy, Vanco discontinued continue Nebs Pulm consulted - oral medications on hold in light of encephalopathy (including Morphine PO Fecal Stasis - based on CT abdomen/Pelvis consider enema if without BMs DM 2 - Pharm Glycemic Control consult HTN - Amlodipine on hold monitor CKD 3 - baseline crea 1.9 - crea 2.2 to 1.8 - monitor Parkinson's Disease, Dementia - mostly bedbound as per DVT Prophylaxis - Heparin Disposition - pending - lives at home with case dicsussed with patient's at bedside in detail code status changed to conditional to full code all questions answered she is understanding, agreeable, comfortable with the plan of care Howie Corona MD Admission and Anticipated Discharge Date Admission Date: April 03, 2019 Subjective ff up for metabolic encephalopathy, pneumonia on Bipap, does not respond to verbal stimuli opens eyes, grimaces to painful stimuli not in distress no other symptoms as per SARAH Banda full ROS difficult to assess in light of cognitive status per , patient's baseline is conversant, but with poor short term memory, mostly bedbound Review of Systems Review of Systems: Unobtainable due to cognitive status Physical Exam Physical Exam: General- only grimaces opens eyes to painful stimuli, not in distress,breathing with no effort or accessory muscle use Head- atraumatic Eyes- PERRL, anicteric ENT- Bipap mask in place Neck- supple, no JVD, no adenopathy, no thyromegaly; carotids +2/2, no bruits appreciated Lungs- (+) mild rhonchi bilaterally Heart- normal rate, regular rhythm; no murmur, no gallop, no rub appreciated Abdomen- normal bowel sounds, nondistended, soft, nontender, no masses or hepatosplenomegaly Extremities- no pretibial edema, no calf tenderness; peripheral pulses intact Neuro- only grimaces opens eyes to painful stimuli no other gross focal deficits noted Skin- warm & dry Results & Data ([facility]) Vital Signs (Past 12 Hours) Vital Signs Temp Pulse Pulse Resp BP Pulse Ox 04/04/19 07:51 36.4 C L 91 H 18 131/74 95 04/04/19 07:20 88 04/04/19 07:14 89 18 95 04/04/19 04:40 90 17 93 04/04/19 04:02 36.9 C 92 H 20 133/68 94 04/04/19 01:11 89 89 20 93 04/03/19 23:52 36.8 C 91 H 20 136/74 93 Laboratory Results all noted and reviewed
--- NOTE | 2019-04-04 11:53 | Pharmacy Report ---
Pharmacy Glycemic Short Note 2 - Date of Service April 04, 2019 - Glycemic Short BSG Results (Last 24 hours): 04/03/19 04/03/19 04/03/19 11:52 11:56 12:49 Glucose 352 H* POC Glucose 339 H* 298 H 04/03/19 04/03/19 04/03/19 16:13 16:14 17:52 Glucose 341 H* POC Glucose 336 H* 340 H* 04/03/19 04/03/19 04/03/19 18:37 20:46 23:55 Glucose POC Glucose 310 H* 292 H 248 H 04/04/19 04/04/19 04/04/19 04:02 05:51 08:03 Glucose 218 H POC Glucose 212 H 202 H OUTPATIENT ANTIDIABETIC REGIMEN: * Tresiba 60 units SQ BID (last taken this AM) * Trulicity 1.5mg SQ weekly (last taken 03/29) * Novolog up to 20 units SQ TID (up to 60 units daily) * A1c = 11% ASSESSMENT: 04/04 * BSGs trending favorably despite still being slightly above goal * Patient remains on high dose IV steroids however dose tapered from 40mg IV Q 8 hrs to Q 12 hrs today * NPO status continues * Will continue a basal insulin dose that is equivalent to his home dose - due to NPO status and a home regimen that was basal skewed * Will continue Q 4 hr correctional insulin at this time - same correction factor as BSGs responding. Will also add CR should diet resume in near future PLAN FOR INPATIENT GLYCEMIC CONTROL: * Basal insulin * Lantus 60 units BID * Bolus insulin * NovoLog per scale Q4hrs * Goal Range: Low 120 mg/dL - High 150 mg/dL * Correction Factor: 5 mg/dL/unit * Nutritional / Prandial insulin per carb ratio of 1 unit per 3 grams CHO consumed PLAN FOR DISCHARGE: * to be assessed when insulin needs are determined and updated A1C obtained.
--- NOTE | 2019-04-04 11:59 | Pulmonary Consultation ---
Date of Consultation April 04, 2019 Assessment & Plan (1) Respiratory failure with hypoxia and hypercapnia: Impression: 68-year-old male with history of Parkinson's disease and dementia with declining mental status admitted now with acute on chronic hypoxemic and hypercarbic respiratory failure. I suspect his hypercarbic respiratory failure is multifactorial due to combinations of untre ated/undiagnosed sleep disordered breathing which is more common in patients with Parkinson's disease. Concomitant use of narcotics as a respiratory suppressant is likely also having a role. In addition the patient may have a week or paretic right hemidiaphragm which may be contributing. He appears to be responding to positive airway pressure. He may have some faint infiltrates consistent with pneumonia but I do not believe these are causing his current respiratory failure issues. Recommendations: 1. Hypercapnic respiratory failure: Discussed etiologies with patient and at bedside. Recommend minimizing use of narcotics as much as possible and avoiding all respiratory suppressant medications. He will require an outpatient sleep study. Outpatient PFTs if feasible may be appropriate although given his underlying dementia and advancing neurocognitive dysfunction these may. Unclear if he would qualify for nocturnal ventilation or BiPAP prior to leaving the hospital but this would be preferable. We will follow blood gas in the morning 2. Potential paretic hemidiaphragm: The patient is not a candidate for aggressive interventions. Weight loss was recommended. Nocturnal positive airway pressure may also be beneficial. 3. Possible pneumonia: The patient is currently on antibiotics. Recommend completing course. No indication for follow-up imaging. Recommend speech therapy/swallow evaluation once he is stable from a respiratory standpoint if this has not been conducted previously to evaluate for potential recurrent aspirations contributing to his pulmonary issues. 4. Hypoxemic respiratory failure: Secondary to elevated PCO2 and potential pneumonia. Wean as tolerated. Chronicity: unspecified Qualified Code(s): J96.91 - Respiratory failure, unspecified with hypoxia; J96.92 - Respiratory failure, unspecified with hypercapnia (2) Abnormal CT scan of lung: (3) Pneumonia: History of Present Illness Attending Physician: Howie Corona MD History of Present Illness Patient seen at the request of the hospitalist for evaluation management of hypoxemic and hypercarbic respiratory failure. History is obtained from discussion with the admitting hospitalist as well as review the electronic medical record and interview with the patient's at bedside. Patient is a 68-year-old male with a history of Parkinson's disease and dementia. The patient has limited function at home and spends majority of time in bed. According to his he is able to stand and pivot to a chair with assist but can only walk for a few steps at home. He does not report significant witnessed apnea or snoring but does tend to sleep frequently during the day. He is not on oxygen at baseline. Patient was brought to the emergency room yesterday with lethargy. He was found to have hypercarbic respiratory failure and was initially placed on BiPAP. Th ere is also concern about pneumonia. He received antibiotics. He was admitted to the hospitalist service and observed overnight. This morning the patient continued to have depressed level of consciousness. Follow-up blood gas was performed which revealed slight worsening of the patient's pH and elevation in PCO2. BiPAP was again adjusted. This prompted a pulmonary consultation. On my assessment the patient is now awake and able to better according to his . He is chronically on narcotics 10 of extended release morphine sulfate twice a day. Allergies Allergy/AdvReac Type Severity Reaction Status Date / Time No Known Allergies Allergy Unverified 04/03/19 12:46 Home Medications Home Medications Medication Instructions Recorded Confirmed Type Namzaric 1 cap PO DAILY 05/03/18 04/03/19 History aspirin [Aspir-81] 81 mg PO DAILY 05/03/18 04/03/19 History cholecalciferol (vitamin D3) 400 unit PO DAILY 05/03/18 04/03/19 History [Vitamin D3] cyclobenzaprine 10 mg PO TID 05/03/18 04/03/19 History docusate sodium [Colace] 100 mg PO DAILY PRN 05/03/18 04/03/19 History multivitamin 1 tab PO DAILY 05/03/18 04/03/19 History oxycodone-acetaminophen [Percocet] 1 tab PO QID PRN 05/03/18 04/03/19 History propranolol 20 mg PO BID 05/03/18 04/03/19 History ropinirole 1 mg PO BID 05/03/18 04/03/19 History amlodipine 5 mg PO DAILY 04/03/19 04/03/19 History atorvastatin 10 mg PO DAILY 04/03/19 04/03/19 History dulaglutide [Trulicity] 1.5 mg SUBCUT WK 04/03/19 04/03/19 History gabapentin 400 mg PO TID 04/03/19 04/03/19 History insulin aspart U-100 [Novolog See Rx Instructions .ROUTE .COMPLEX 04/03/19 04/03/19 History Flexpen U-100 Insulin] insulin degludec [Tresiba 60 unit SUBCUT BID 04/03/19 04/03/19 History FlexTouch U-200] magnesium oxide 400 mg PO BID 04/03/19 04/03/19 History morphine 10 mg PO BID 04/03/19 04/03/19 History Patient History Medical History Dementia (Chronic) Diabetes (Chronic) Hypertension (Chronic) Mini stroke Parkinson's disease (Chronic) Surgical History History of hip replacement, total (Chronic) Hx of cholecystectomy (Chronic) Social History Preferred Language: Thai Communication Ability: Impaired Communication Ability Comment: patient unresponsive, responds only to pain and movement Psychiatric Nursing Aide Required: No Beliefs That Will Affect Care: None marital status: Current Living Situation: Spouse and Family Current Living Situation Comment: AND 3 CHILDREN Other Information That Helps Us Care for You: No Feels Safe at Home: Yes Safety Concerns: Feels Safe At This Time Smoking Status: Never smoker Do You Dip or Chew Tobacco: No ; Second Hand Exposure: No ; Tobacco Cessation Education Requested by Patient: No Hx Alcohol Use: No Hx Substance Use: No Review of Systems Review of Systems: Unobtainable due to reduced consciousness Physical Exam Constitutional: + obese somnolent but arousable. Neck: trachea midline, no thyromegaly Respiratory: normal respiratory effort, lungs clear to auscultation BS diminished bilaterally. Cardiovascular: RRR, no murmur, no edema Gastrointestinal (Abdomen): normal bowel sounds, soft, nontender, no hepatosplenomegaly Musculoskeletal: Extremities: extremities normal to inspection Skin: no rashes, warm and dry Lymphatic: no cervical lymphadenopathy Results & Data ([facility]) Vital Signs (Past 12 Hours) Vital Signs Temp Pulse Pulse Resp BP Pulse Ox 04/04/19 11:15 36.5 C 91 H 18 145/79 H 99 02/18/20 07:51 36.4 C L 91 H 18 131/74 95 04/04/19 07:20 88 04/04/19 07:14 89 18 95 04/04/19 04:40 90 17 93 04/04/19 04:02 36.9 C 92 H 20 133/68 94 04/04/19 01:11 89 89 20 93 04/03/19 23:52 36.8 C 91 H 20 136/74 93 Laboratory Results 04/04/19 05:51 04/04/19 05:51 Bicarb levels have routinely been above 30 Diagnostic Findings Imaging independently reviewed. CT of the abdomen and pelvis from 04/03/2019 was reviewed. Lungs were interrogated at the lung bases. There is a small amount of atelectasis/infiltrate present in the right greater than left lung bases. El evated hemidiaphragm is noted. Chest x-rays dating back to 2013 were reviewed. The current films demonstrates a mild elevation in the right hemidiaphragm. He is never had sniff testing performed. PG Care Time/CCT Total # of Minutes Spent Total Time Spent with Patient: Total time spent is greater than 50% in coordination of care (as documented) at patient's floor/unit and/or counseling patient: Coding Level of Care Code 10171 Initial Inpt Care Lvl 3 Diagnoses Respiratory failure with hypoxia and hypercapnia J96.91; J96.[address]: [address] scan of lung R91.8 Pneumonia J18.9 Time Spent (min) 40
[2019-04-04 12:18] LABS: Base Excess ABG 0.2 mEq/L (-9-1.8); HCO3 ABG 29 mmol/L (19-24); PCO2 ABG 66 mmHg (35-46); PO2 ABG 84 mmHg (80-95); pH ABG 7.26 (7.35-7.45)
[2019-04-04 12:20] LABS: Allen Test Pos (Pos)
[2019-04-04] MEDS ORDERED: INSULIN GLARGINE SOLOSTAR 100 UNITS/ML 3 ML PEN SC ONE (12:30)
[2019-04-04 12:41] LABS: BUN Creatinine Ratio 35.4 (10-20); Calcium 8.3 mg/dl (8.5-10.1); Creatinine Clr Calc Pharmacy 64.8 ml/min; Est GFR (African American) 60.1; Est GFR (Non-African American) 51.9; Potassium 4.9 mmol/L (3.5-5.1)
[2019-04-04] MEDS ORDERED: VANCOMYCIN HCL 1,500 MG in SODIUM CHLORIDE 0.9% 500 ML IV SCH (15:00)
[2019-04-04] MEDS: PIPERACILLIN/TAZOBACTAM 4.5 GM in DEXTROSE 5% 100 ML IV SCH ×2 (15:06→22:31)
[2019-04-04] MEDS: INSULIN GLARGINE SOLOSTAR 100 UNITS/ML 3 ML PEN SC SCH (20:20)
[2019-04-05] MEDS: INSULIN ASPART 100 UNITS/ML 3 ML PEN SQ SCH ×6 (00:09→21:24)
[2019-04-05] MEDS: ALBUTEROL 0.083% NEBU SOLN 3 ML VIAL NEB SCH ×3 (00:48→13:27)
[2019-04-05] MEDS ORDERED: ACETAMINOPHEN 325 MG TAB PO PRN (04:47)
[2019-04-05] MEDS: TRAMADOL HCL 50 MG TABLET PO PRN ×3 (05:45→16:58)
[2019-04-05] MEDS: PIPERACILLIN/TAZOBACTAM 4.5 GM in DEXTROSE 5% 100 ML IV SCH ×3 (05:45→21:23)
[2019-04-05 06:38] LABS: Basophils # (auto) 0.02 K/uL (0-0.2); Basophils % (auto) 0.2 %; Hematocrit (blood only) 41.4 % (42-52); Hemoglobin 13.5 g/dL (14.0-18.0); Immature Granulocytes # (auto) 0.04 K/uL (0.00-0.02); Immature Granulocytes % (auto) 0.3 %; Lymphocytes # (auto) 1.05 K/uL (1.2-3.4); Lymphocytes % (auto) 8.5 %; Mean Corpuscular Hemoglobin 28.5 pg (25-34); Mean Corpuscular Hgb Conc 32.6 g/dL (32-36); Mean Corpuscular Volume 87.3 fL (80-100); Mean Platelet Volume 9.3 fL (7.4-10.4); Monocytes # (auto) 0.71 K/uL (0.11-0.59); Monocytes % (auto) 5.8 %; Neutrophils # (auto) 10.48 K/uL (1.4-6.5); Neutrophils % (auto) 85.2 %; Platelet Count 215 K/uL (130-400); RDW Coefficient of Variation 14.3 % (11.5-14.5); RDW Standard Deviation 46.1 fL (36.4-46.3); Red Blood Count 4.74 M/uL (4.7-6.1)
[2019-04-05 06:59] LABS: BUN Creatinine Ratio 33.5 (10-20); Calcium 8.8 mg/dl (8.5-10.1); Creatinine Clr Calc Pharmacy 65.9 ml/min; Est GFR (African American) 61.2; Est GFR (Non-African American) 52.8; Potassium 4.1 mmol/L (3.5-5.1)
[2019-04-05] MEDS: methylPREDNISolone 40 MG in SYRINGE 0 ML IV SCH (08:28)
[2019-04-05] MEDS: HEPARIN SOD 5,000 UNIT/0.5 ML VIAL SQ SCH ×2 (08:29→21:24)
[2019-04-05] MEDS: INSULIN GLARGINE SOLOSTAR 100 UNITS/ML 3 ML PEN SC SCH ×2 (08:34→21:26)
[2019-04-05] MEDS: DOXYCYCLINE HYCLATE 100 MG in DEXTROSE 5% 100 ML IV SCH ×2 (08:36→21:23)
--- NOTE | 2019-04-05 10:17 | Pulmonology Progress Note ---
Date of Service April 05, 2019 Assessment & Plan (1) Hypercapnic respiratory failure: Patient with elevated PCO2 on admission as well as second day after receiving BiPAP therapy Patient is tolerating BiPAP better Will check repeat ABG this morning to look at progress with BiPAP Patient will need outpatient follow-up and PFTs as well as polysomnography study. 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 We will continue to follow along with you. Please refer to Dr. Hwang's addendum and corrections for further recommendations. Subjective Attending: Dr. Hwang Patient seen and examined at bedside. His was present. Patient is considerably better from a cognitive standpoint. He is tolerating BiPAP but is having some abrasion on the bridge of his nose. Patient has some confusion and history and review of systems is primarily obtained by his . Per her report, patient is close to baseline. She reports him as being "87% back to normal". The patient did have elevated PCO2 on admission contributing to lethargy and hypoxia. Patient denies any shortness of breath today. He has no chest pain or tightness. He has no fever. Patient's states he does have a dry cough that is occasional. From an observational standpoint, patient is breathing with his mouth closed and is in no acute distress. Review of Systems Review of Systems: Unobtainable due to cognitive status Secondary to Parkinson's syndrome/dementia. Physical Exam Physical Exam: GENERAL : No acute distress. Patient is not using accessory muscles and appears to be comfortable. EYES: No icterus, gaze conjugate NOSE: No evidence of epistaxis. There is an abrasion on the bridge of the patient's nose secondary to BiPAP mask MOUTH: No lesions or candidiasis. Mucosa is moist NECK: Supple LUNGS: There are some fine crackles at the bases. No bronchospasm is appreciated. HEART: Regular, rate controlled ABDOMEN: Soft, NT, ND, BS Present EXTREMITIES: No LE edema, pedal pulses intact NEURO: Awake and alert. Results & Data ([facility]) Vital Signs (Past 12 Hours) Vital Signs Temp Pulse Pulse Resp BP Pulse Ox 04/05/19 07:56 36.9 C 101 H 18 149/73 H 93 04/05/19 07:07 101 H 14 94 04/05/19 04:07 36.5 C 99 H 18 160/77 H 98 04/05/19 03:12 99 H 18 96 04/05/19 00:50 98 H 98 H 17 95 04/04/19 23:36 36.7 C 101 H 20 163/84 H 95 Laboratory Results 04/05/19 05:55 04/05/19 05:52 04/04/19 04/04/19 09:37 12:03 ABG pH 7.24 L 7.26 L ABG pCO2 69 H 66 H ABG pO2 77 L 84 ABG HCO3 29 H 29 H ABG O2 Saturation 94.3 95.0 ABG Base Excess -0.4 0.2 Diagnostic Findings No new imaging since 04/03/2019 PG Care Time/CCT Total # of Minutes Spent Total Time Spent with Patient: Total time spent is greater than 50% in coordination of care (as documented) at patient's floor/unit and/or counseling patient: 30 minutes including discussion with patient, patient's , and Dr. Green of the primary team Coding Level of Care Code 79912 Subseq Hosp Care Lvl 2 Diagnoses Hypercapnic respiratory failure J96.92 Paralyzed hemidiaphragm J98.6 Pneumonia J18.9
[2019-04-05 10:30] LABS: Base Excess ABG 4.2 mEq/L (-9-1.8); HCO3 ABG 29 mmol/L (19-24); Oxygen Saturation ABG 91.5 % (90-95); PCO2 ABG 42 mmHg (35-46); PO2 ABG 58 mmHg (80-95); pH ABG 7.45 (7.35-7.45)
[2019-04-05 10:33] LABS: Allen Test Pos (Pos)
--- NOTE | 2019-04-05 12:23 | Pharmacy Report ---
Pharmacy Glycemic Short Note 2 - Date of Service April 05, 2019 - Glycemic Short BSG Results (Last 24 hours): 04/04/19 04/04/19 04/04/19 12:00 15:51 19:59 Glucose 255 H POC Glucose 214 H 219 H 04/05/19 04/05/19 04/05/19 00:06 04:06 05:52 Glucose 169 H POC Glucose 148 H 157 H 04/05/19 04/05/19 07:47 11:18 Glucose POC Glucose 160 H 161 H OUTPATIENT ANTIDIABETIC REGIMEN: * Tresiba 60 units SQ BID (last taken this AM) * Trulicity 1.5mg SQ weekly (last taken 03/29) * Novolog up to 20 units SQ TID (up to 60 units daily) * A1c = 11% ASSESSMENT: 04/05 * Glycemic control much improved at this time * Fasting BSG 160 this AM with 140 units basal insulin on board and after receiving (22 units Novolog overnight) * Solu-Medrol 40mg IV Q 12 hrs continues * A Heart Healthy Diet has been ordered - will continue w/ aggressive carb coverage should PO intake begin today 04/04 * BSGs trending favorably despite still being slightly above goal * Patient remains on high dose IV steroids however dose tapered from 40mg IV Q 8 hrs to Q 12 hrs today * NPO status continues * Will continue a basal insulin dose that is equivalent to his home dose - due to NPO status and a home regimen that was basal skewed * Will continue Q 4 hr correctional insulin at this time - same correction factor as BSGs responding. Will also add CR should diet resume in near future PLAN FOR INPATIENT GLYCEMIC CONTROL: * Basal insulin * Lantus units SQ BID per scale * 0 units if BSG less than 110 * 60 units if BSG 110-180 * 70 units if BSG above 180 * Bolus insulin * NovoLog per scale Q4hrs * Goal Range: Low 110 mg/dL - High 140 mg/dL * Correction Factor: 5 mg/dL/unit * Nutritional / Prandial insulin per carb ratio of 1 unit per 3 grams CHO consumed PLAN FOR DISCHARGE: * to be determined. * pt's is his caregiver and admits that tight glycemic control is a difficult task * BSGs better controlled with his out-pt regimen of Trulicity + Tresiba per her report * Recommend resuming his outpt regimen w/ f/u with PCP / Endocrinology to determine what adjustments can be made in conjunction with 's plan of care
[2019-04-05] MEDS ORDERED: HYDROmorphone INJ 0.5 MG/0.5 ML SYR IV STA (14:49)
[2019-04-05] MEDS ORDERED: ALBUTEROL 0.083% NEBU SOLN 3 ML VIAL NEB PRN (15:02)
--- NOTE | 2019-04-05 15:02 | Hospitalist Progress Note ---
Date of Service April 05, 2019 Assessment & Plan (1) Metabolic encephalopathy: Metabolic Encephalopathy secondary to Hypercapnic respiratory failure with possible aspiration pneumonia Parkinson's Disease and Dementia -68 year old male with history of Parkinson's, Dementia, DM 2, HTN presenting with altered mental status. -patient with carbon dioxide retention and respiratory status required BIPAP; is room air oxygen as of 04/05/2019. will set up BIPAP qHS for now. inquiries are made with case management on applying for BIPAP machine for home use -Patient may benefit from outpatient PFTs as well as polysomnography study. -as per pulmonary service, patient has Paralyzed hemidiaphragm, most likely is chronic in review of previous imaging,not a surgical candidate and will be unable to adequately perform sniff test secondary to cognitive function -Possible aspiration pneumonia on this admission on point or arrival secondary to cognitive function and Parkinson's as CT abdomen with Interval development of bibasilar parenchymal infiltrates.; MRSA screening is negative -vancomycin has been discontinued by hospitalist on 04/05/2019. Continue doxycycline and Zosyn -decrease solumedrol 40 mg IV from q12 hours to once daily from every 12 hours -Speech Swallow assessments with aspiration precautions -patient is mostly bedbound as per - PT/OT evaluations -patient also may be at risk of respiratory depression because of chronic opioid use for Buttock/Sacral Ulcer Buttock/Sacral Ulcer on point of admission Fecal Stasis -fecal burdern seen on CT abdomen/Pelvis -patient had bowel movement seen by medical doctor on 04/05/2019 -cultures were taken by wound care team on 04/05/2019 but question the utility given likely anaerobic bacteria walter -wound care and repositioning, on chronic opioid pain medications Type 2 diabetes mellitus with long term care social worker current use of insulin -has active Pharmacologic Glycemic Control consult Diabetic Neuropathy Restless Legs Syndrome -gabapentin, ropinirole, propranolol, cyclobenzapine Hypertension -Amlodipine 5 mg daily Chronic Kidney Disease Stage 3 - baseline creatinine 1.9 DVT Prophylaxis - Heparin subcutaneously [phone] Admission and Anticipated Discharge Date Admission Date: April 03, 2019 is admission date; discharge date undetermined Subjective Patient seen earlier this AM after nursing staff cleaned him. Patient had feces around sacral area. Patient has been breathing on room air. He is able to answer simple questions appropriately. Nurse reports that subsequently the wound care doctor swabbed the sacral ulcer area for cultures. Nurse reports patient with pain of buttock from the repositioning on mattress Review of Systems Review of Systems: All systems reviewed & are unremarkable except as noted in HPI & below Physical Exam Constitutional: + obese Eyes: PERRL, conjunctivae normal, anicteric sclerae EOM intact bilaterally ENMT: external ear and nose normal, oropharynx normal Neck: normal visual inspection Respiratory: normal respiratory effort Cardiovascular: Rate/Rhythm: regular rate Gastrointestinal (Abdomen): normal bowel sounds, soft, nontender, no hepatosplenomegaly Musculoskeletal: Head/Neck/Chest: normocephalic and head atraumatic Skin: ulcer of sacral area Neurologic: PERRL, EOMI, accommodation nl, no face palsy, no dysarthria Psychiatric: Orientation: alert and cooperative Results & Data ([facility]) Vital Signs (Past 12 Hours) Vital Signs Temp Pulse Pulse Pulse Resp BP Pulse Ox 04/05/19 13:29 96 H 16 93 04/05/19 11:06 36.4 C L 101 H 18 169/80 H 93 04/05/19 07:56 36.9 C 101 H 18 149/73 H 93 04/05/19 07:35 99 H 04/05/19 07:07 101 H 14 94 04/05/19 04:07 36.5 C 99 H 18 160/77 H 98 04/05/19 03:12 99 H 18 96
[2019-04-05] MEDS ORDERED: LEVOFLOXACIN/D5W 750 MG/150 ML BAG IV SCH (15:30)
--- NOTE | 2019-04-05 21:16 | Wound Consultation ---
Date of Consultation April 05, 2019 Assessment & Plan (1) Pressure ulcer of sacral region, stage 3: Patient with a stage 3 pressure ulcer of sacral region with fungal dermatitis of periwound. No debridement required at this time. Kaltostat to wound Anitfungal cream to periwound. Wound culture was obtained. Specialty bed to offload pressure. Thank you for allowing me to participate in the care of this patient. Please don't hesitate to call with any questions. (2) Fungal dermatitis: History of Present Illness Reason for Consultation: sacral wound Attending Physician: Chris Green MD History of Present Illness This is a 68 year old male admitted with altered mental status secondary to b/l pneumonia and found to have large sacral wound. Patient has medical history of parkinson's, dementia, type 2 diabetes, ckd and hypertension. Per patients , the wound has been present for about 1 year and waxes and wanes. Allergies Allergy/AdvReac Type Severity Reaction Status Date / Time No Known Allergies Allergy Unverified 04/03/19 12:46 Home Medications Home Medications Medication Instructions Recorded Confirmed Type Namzaric 1 cap PO DAILY 05/03/18 04/03/19 History aspirin [Aspir-81] 81 mg PO DAILY 05/03/18 04/03/19 History cholecalciferol (vitamin D3) 400 unit PO DAILY 05/03/18 04/03/19 History [Vitamin D3] cyclobenzaprine 10 mg PO TID 05/03/18 04/03/19 History docusate sodium [Colace] 100 mg PO DAILY PRN 05/03/18 04/03/19 History multivitamin 1 tab PO DAILY 05/03/18 04/03/19 History oxycodone-acetaminophen [Percocet] 1 tab PO QID PRN 05/03/18 04/03/19 History propranolol 20 mg PO BID 05/03/18 04/03/19 History ropinirole 1 mg PO BID 05/03/18 04/03/19 History amlodipine 5 mg PO DAILY 04/03/19 04/03/19 History atorvastatin 10 mg PO DAILY 04/03/19 04/03/19 History dulaglutide [Trulicity] 1.5 mg SUBCUT WK 04/03/19 04/03/19 History gabapentin 400 mg PO TID 04/03/19 04/03/19 History insulin aspart U-100 [Novolog See Rx Instructions .ROUTE .COMPLEX 04/03/19 04/03/19 History Flexpen U-100 Insulin] insulin degludec [Tresiba 60 unit SUBCUT BID 04/03/19 04/03/19 History FlexTouch U-200] magnesium oxide 400 mg PO BID 04/03/19 04/03/19 History morphine 10 mg PO BID 04/03/19 04/03/19 History Patient History Medical History Dementia (Chronic) Diabetes (Chronic) Hypertension (Chronic) Mini stroke Paralyzed hemidiaphragm Parkinson's disease (Chronic) Surgical History History of hip replacement, total (Chronic) Hx of cholecystectomy (Chronic) Social History Preferred Language: Urdu Communication Ability: Impaired Communication Ability Comment: patient unresponsive, responds only to pain and movement 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 Beliefs That Will Affect Care: None marital status: Current Living Situation: Spouse and Family Current Living Situation Comment: AND 3 CHILDREN Other Information That Helps Us Care for You: No Feels Safe at Home: Yes Safety Concerns: Feels Safe At This Time Smoking Status: Never smoker Do You Dip or Chew Tobacco: No ; Second Hand Exposure: No ; Tobacco Cessation Education Requested by Patient: No Hx Alcohol Use: No Hx Substance Use: No Review of Systems Review of Systems: Unobtainable due to cognitive status Physical Exam Constitutional: WD/WN, vitals as above Eyes: PERRL, conjunctivae normal, anicteric sclerae ENMT: Ears: no hearing impairment Skin: Wound measuring as recorded in nursing documentation. There is a central area that represents a stage 3 pressure ulcer. The isaac wound is erythematous and fungal in appearance. Neurologic: awake Psychiatric: Orientation: oriented to person and cooperative Results & Data Vital Signs (Past 12 Hours) Vital Signs Temp Pulse Pulse Pulse Resp BP Pulse Ox 04/05/19 19:28 36.7 C 98 H 20 153/74 H 95 04/05/19 16:00 100 H 04/05/19 15:31 36.7 C 97 H 20 154/66 H 92 04/05/19 13:29 96 H 16 93 04/05/19 11:06 36.4 C L 101 H 18 169/80 H 93 PG Care Time/CCT Total # of Minutes Spent Total Time Spent with Patient: Total time spent is greater than 50% in coordination of care (as documented) at patient's floor/unit and/or counseling patient: Coding Level of Care Code 29872 Inpt Consult Level 3 Diagnoses Pressure ulcer of sacral region, stage 3 L89.153 Fungal dermatitis B36.9
[2019-04-05] MEDS: ROPINIROLE HCL 1 MG TABLET PO SCH (21:23)
[2019-04-05] MEDS: GABAPENTIN 400 MG CAP PO SCH (21:23)
[2019-04-05] MEDS: PROPRANOLOL HCL 20 MG TAB PO SCH (21:24)
[2019-04-05] MEDS: CYCLOBENZAPRINE HCL 10 MG TAB PO SCH (21:24)
[2019-04-06] MEDS ORDERED: INSULIN ASPART 100 UNITS/ML 3 ML PEN SQ SCH (02:00)
[2019-04-06 06:50] LABS: Codeine Urine NEGATIVE ng/mL (<50); Hydrocodone Urine NEGATIVE ng/mL (<50); Hydromor Urine NEGATIVE ng/mL (<50); Morphine Urine NEGATIVE ng/mL (<50); Norhydrocodone Conf Ur NEGATIVE ng/mL (<50); Noroxycodone Urine 1970 ng/mL (<50); Oxycodone Urine 1270 ng/mL (<50); Oxymorph Urine 2460 ng/mL (<50)
[2019-04-06 06:59] LABS: Hematocrit (blood only) 47.1 % (42-52); Hemoglobin 15.7 g/dL (14.0-18.0); Mean Corpuscular Hemoglobin 28.8 pg (25-34); Mean Corpuscular Hgb Conc 33.3 g/dL (32-36); Mean Corpuscular Volume 86.3 fL (80-100); RDW Coefficient of Variation 14.8 % (11.5-14.5); RDW Standard Deviation 46.6 fL (36.4-46.3); Red Blood Count 5.46 M/uL (4.7-6.1); White Blood Count 11.33 K/uL (4.8-10.8)
[2019-04-06 07:00] LABS: Basophils # (auto) 0.01 K/uL (0-0.2); Basophils % (auto) 0.1 %; Eosinophils # (auto) 0.08 K/uL (0-0.5); Eosinophils % (auto) 0.7 %; Immature Granulocytes # (auto) 0.05 K/uL (0.00-0.02); Immature Granulocytes % (auto) 0.4 %; Lymphocytes # (auto) 0.96 K/uL (1.2-3.4); Lymphocytes % (auto) 8.5 %; Mean Platelet Volume 9.1 fL (7.4-10.4); Monocytes # (auto) 1.08 K/uL (0.11-0.59); Monocytes % (auto) 9.5 %; Neutrophils # (auto) 9.15 K/uL (1.4-6.5); Neutrophils % (auto) 80.8 %; Platelet Count 210 K/uL (130-400)
[2019-04-06 07:10] LABS: Base Excess VBG 8.6 mEq/L; Oxygen Saturation VBG 70.5 %; pH VBG 7.47 (7.36-7.41)
[2019-04-06 07:32] LABS: Albumin Globulin Ratio 0.5 (0.9-2); Albumin Level 2.8 gm/dl (3.4-5.0); BUN Creatinine Ratio 28.6 (10-20); Bilirubin,Total 0.7 mg/dl (0.2-1); Calcium 9.5 mg/dl (8.5-10.1); Creatinine Clr Calc Pharmacy 73.4 ml/min; Est GFR (African American) 76.7; Est GFR (Non-African American) 66.2; Globulin 5.4 gm/dl (2.5-4.0); Magnesium 2.5 mg/dl (1.8-2.4); Total Protein 8.2 gm/dl (6.4-8.2)
[2019-04-06] MEDS: INSULIN ASPART 100 UNITS/ML 3 ML PEN SQ SCH ×4 (08:52→21:20)
[2019-04-06] MEDS: CYCLOBENZAPRINE HCL 10 MG TAB PO SCH ×3 (08:53→21:17)
[2019-04-06] MEDS: GABAPENTIN 400 MG CAP PO SCH ×3 (08:54→21:18)
[2019-04-06] MEDS: PROPRANOLOL HCL 20 MG TAB PO SCH ×2 (08:54→21:17)
[2019-04-06] MEDS: ROPINIROLE HCL 1 MG TABLET PO SCH ×2 (08:54→21:18)
[2019-04-06] MEDS: HEPARIN SOD 5,000 UNIT/0.5 ML VIAL SQ SCH ×2 (08:55→21:17)
[2019-04-06] MEDS: DOXYCYCLINE HYCLATE 100 MG in DEXTROSE 5% 100 ML IV SCH (08:57)
[2019-04-06] MEDS: PIPERACILLIN/TAZOBACTAM 4.5 GM in DEXTROSE 5% 100 ML IV SCH (08:57)
[2019-04-06] MEDS ORDERED: methylPREDNISolone 40 MG in SYRINGE 0 ML IV SCH (09:00)
[2019-04-06] MEDS ORDERED: ACETAMINOPHEN 325 MG TAB PO PRN (10:15)
[2019-04-06] MEDS ORDERED: POTASSIUM CHLORIDE 20 MEQ TABCR PO ONE (10:15)
--- NOTE | 2019-04-06 10:18 | Hospitalist Progress Note ---
Date of Service April 06, 2019 Assessment & Plan (1) Metabolic encephalopathy: Metabolic Encephalopathy secondary to Hypercapnic respiratory failure with possible aspiration pneumonia Parkinson's Disease and Dementia -68 year old male with history of Parkinson's, Dementia, DM 2, HTN presenting with altered mental status. -patient with carbon dioxide retention and respiratory status required BIPAP; is room air oxygen as of 04/05/2019. -on BIPAP qHS for now (recent settings of IPAP/EPAP settings of 16/). inquiries are made with case management on applying for BIPAP machine for home use -Possible aspiration pneumonia on this admission on point or arrival secondary to cognitive function and Parkinson's as CT abdomen with Interval development of bibasilar parenchymal infiltrates; Speech Swallow assessments with aspiration precautions while inpatient -MRSA screening is negative -vancomycin has been discontinued by hospitalist on 04/05/2019. Zosyn which was empirically started on admission is stopped on 04/06/2019 with plans to transition to Augmentin. Continue doxycycline -patient completed solumedrol taper as of 03/2019 -Patient may benefit from outpatient PFTs as well as polysomnography study. -as per pulmonary service, patient has Paralyzed hemidiaphragm, most likely is chronic in review of previous imaging,not a surgical candidate and will be unable to adequately perform sniff test secondary to cognitive function -patient is mostly bedbound as per - PT/OT evaluations -patient also may be at risk of respiratory depression because of chronic opioid use for Buttock/Sacral Ulcer Buttock/Sacral Ulcer on point of admission Fecal Stasis -fecal burdern seen on CT abdomen/Pelvis -patient had bowel movement seen by medical doctor on 04/05/2019 -cultures were taken by wound care team on 04/05/2019 and possible pseudomonas species -wound care and repositioning, on chronic opioid pain medications -oral antibiotics for respiratory coverage may provide bacterial skin coverage but the area does not appear to have acute infection 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 give oral potassium and recheck the labs in afternoon Diabetic Neuropathy Restless Legs Syndrome -gabapentin, ropinirole, propranolol, cyclobenzapine Hypertension -Amlodipine 5 mg daily Chronic Kidney Disease Stage 3 -creatinine is 1.12 as of 04/06/2019 DVT Prophylaxis - Heparin subcutaneously [phone] Admission and Anticipated Discharge Date Admission Date: April 03, 2019 Subjective nasal bridge abrasion from BIPAP mask previously. Had BIPAP at night with sleep and on room air during the day time. no acute distress. patient denies acute pain or other acute symptoms. patient's at bedside and no further questions of the care as hospitalist team is awaiting case management on obtaining home BIPAP device/equipment Review of Systems Review of Systems: All systems reviewed & are unremarkable except as noted in HPI & below Physical Exam Constitutional: + obese Eyes: PERRL, conjunctivae normal, anicteric sclerae EOM intact bilaterally ENMT: external ear and nose normal, oropharynx normal Neck: normal visual inspection Respiratory: normal respiratory effort Cardiovascular: Rate/Rhythm: regular rate Gastrointestinal (Abdomen): normal bowel sounds, soft, nontender, no hepatosplenomegaly Musculoskeletal: Head/Neck/Chest: normocephalic and head atraumatic Skin: nasal bridge abrasion from BIPAP mask Neurologic: PERRL, EOMI, accommodation nl, no face palsy, no dysarthria Psychiatric: Orientation: alert and cooperative Results & Data ([facility]) Vital Signs (Past 12 Hours) Vital Signs Temp Pulse Pulse Resp BP Pulse Ox 04/06/19 07:12 36.5 C 80 15 150/70 H 92 04/06/19 03:14 36.8 C 80 18 153/80 H 95 04/06/19 00:00 82 04/05/19 23:10 36.5 C 81 20 143/74 H 93
--- NOTE | 2019-04-06 10:48 | XRay Report ---
XR chest 1V portable CLINICAL HISTORY: 68 years-old Male presenting with lung infiltrates, recent weakness and sepsis. TECHNIQUE: Portable upright AP view of the chest was obtained. COMPARISON: 04/03/2019. FINDINGS: Atherosclerosis of the aortic arch. Cardiac silhouette enlarged. Elevation of the right hemidiaphragm as on prior exam. Minimal right basilar opacities. Small right pleural effusion suspected. No pneumo thorax. Degenerative changes of the thoracic spine. Cholecystectomy clips noted. Several overlying ex ternal leads project over the lung bases to grating evaluation. IMPRESSION: 1. Minimal right basilar opacities likely atelectasis or scarring in the setting of a chronically el evated right hemidiaphragm. 2. Possible small right pleural effusion or pleural thickening as this finding is chronic. 3. Cardiomegaly. No evidence of advanced congestive changes. 4. No convincing evidence of acute cardiopulmonary disease. ACT 112: Negative or not required by law. Electronically signed by: Javid Nicolas M.D. 04/06/2019 10:47 AM
[2019-04-06] MEDS: INSULIN GLARGINE SOLOSTAR 100 UNITS/ML 3 ML PEN SC SCH ×2 (11:34→21:21)
--- NOTE | 2019-04-06 12:25 | Pharmacy Report ---
Pharmacy Glycemic Short Note 2 - Date of Service April 06, 2019 - Glycemic Short BSG Results (Last 24 hours): 04/05/19 04/05/19 04/06/19 16:11 20:12 02:20 Glucose POC Glucose 146 H 152 H 99 04/06/19 04/06/19 04/06/19 06:35 07:13 07:17 Glucose 62 L POC Glucose 68 L* 63 L* 04/06/19 04/06/19 07:40 11:20 Glucose POC Glucose 93 109 H OUTPATIENT ANTIDIABETIC REGIMEN: * Tresiba 60 units SQ BID (last taken this AM) * Trulicity 1.5mg SQ weekly (last taken 03/29) * Novolog up to 20 units SQ TID (up to 60 units daily) * A1c = 11% ASSESSMENT: 04/06 * BSGs improved yesterday and at goal * However this AM fasting hypoglycemia noted (FBS 63-68) with 120 units basal on board (equivalent to home dosage) * Pt's PO intake remains poor, will hold AM basal insulin dose as BSG did only climb to 109 prelunch * Lantus doses will be scaled back by at least 20% and will resume this evening * Of note, steroid dose changed yesterday - Solumedrol 40mg IV Q12 hrs --> Q 24 hrs, therefore did not receive evening dose yesterday (likely contributing to improved insulin sensitivity overnight) * Will scale back Novolog doses as well in light of AM hypo 04/05 * Glycemic control much improved at this time * Fasting BSG 160 this AM with 140 units basal insulin on board and after receiving (22 units Novolog overnight) * Solu-Medrol 40mg IV Q 12 hrs continues * A Heart Healthy Diet has been ordered - will continue w/ aggressive carb coverage should PO intake begin today 04/04 * BSGs trending favorably despite still being slightly above goal * Patient remains on high dose IV steroids however dose tapered from 40mg IV Q 8 hrs to Q 12 hrs today * NPO status continues * Will continue a basal insulin dose that is equivalent to his home dose - due to NPO status and a home regimen that was basal skewed * Will continue Q 4 hr correctional insulin at this time - same correction factor as BSGs responding. Will also add CR should diet resume in near future PLAN FOR INPATIENT GLYCEMIC CONTROL: * Basal insulin (dose reduction) * Lantus units SQ BID per scale * 0 units if BSG less than 110 * 35 units if BSG 110-180 * 50 units if BSG above 180 * Bolus insulin (dose reduction) * NovoLog per scale ACHS and at 02 * Goal Range: Low 110 mg/dL - High 140 mg/dL * Correction Factor: 15 mg/dL/unit * Nutritional / Prandial insulin per carb ratio of 1 unit per 5 grams CHO consumed PLAN FOR DISCHARGE: * to be determined. * pt's is his caregiver and admits that tight glycemic control is a difficult task * BSGs better controlled with his out-pt regimen of Trulicity + Tresiba + Novolog per her report * Recommend resuming his outpt regimen w/ f/u with PCP / Endocrinology to determine what adjustments can be made in conjunction with 's plan of care
[2019-04-06 14:20] LABS: Albumin Level 2.5 gm/dl (3.4-5.0); BUN Creatinine Ratio 29.8 (10-20); Calcium 8.8 mg/dl (8.5-10.1); Creatinine Clr Calc Pharmacy 80.6 ml/min; Est GFR (African American) 85.9; Est GFR (Non-African American) 74.1; Potassium 3.7 mmol/L (3.5-5.1)
[2019-04-06 14:29] LABS: Albumin Globulin Ratio 0.5 (0.9-2); Bilirubin,Total 0.6 mg/dl (0.2-1); Globulin 4.7 gm/dl (2.5-4.0); Total Protein 7.2 gm/dl (6.4-8.2)
--- NOTE | 2019-04-06 15:29 | Pulmonology Progress Note ---
Date of Service April 06, 2019 Assessment & Plan (1) Hypercapnic respiratory failure: Patient with elevated PCO2 on admission as well as second day after receiving BiPAP therapy Patient is tolerating BiPAP Repeat ABGs show correction of PCO2 with use of BiPAP Patient will need outpatient follow-up and PFTs as well as polysomnography study. Patient has previous diagnosis of COPD. Combined with comorbidity of hypercapnia, patient will qualify for BiPAP on discharge. 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 This most likely is chronic in review of previous imaging Not a candidate for surgical intervention Continue BiPAP/positive air pressure at bedtime as tolerated (3) Pneumonia: Possible aspiration pneumonia secondary to cognitive function and Parkinson's Been empirically treated with doxycycline and Zosyn * De-escalate antibiotics as tolerated * No overt infiltrates on chest x-ray this morning MRSA screening is negative -vancomycin has been discontinued by primary team 5 days of prednisone Swallow study with PC MAINTENANCE TECHNICIAN completed * Easy to chew diet * Aspiration precautions * PC MAINTENANCE TECHNICIAN via home health at discharge * Alternate solids and liquids * Crushed medications * Supervised meals * Fully upright and alert with feeding * Maintain good oral hygiene Continue strict aspiration precautions Thank you for including us in the care of this patient. We will continue to follow along with you. Please refer to Dr. Hwang's addendum and corrections for further recommendations. Subjective Attending: Dr. Hwang Patient seen and examined at bedside with his present. Patient is much more alert and oriented today and able to answer simple questions. He does dem onstrate some dementia but follows simple commands without difficulty. He denies any chest pain or tightness. He has no shortness of breath. He is currently oxygenating well on room air with no evidence of respiratory distress. He denies any fever or chills or sweats. His corroborates his review of systems. He has no acute complaints. Review of Systems Review of Systems: All systems reviewed & are unremarkable except as noted in HPI & below Physical Exam Physical Exam: GENERAL : No acute distress EYES: No icterus, gaze conjugate NOSE: No evidence of epistaxis MOUTH: No lesions or candidiasis NECK: Supple LUNGS: CTA B/L, no wheezes, rales or rhonchi. Good inspiratory effort. HEART: Regular, rate controlled ABDOMEN: Soft, NT, ND, BS Present EXTREMITIES: No LE edema, pedal pulses intact. Able to touch opposing shoulder with right and left hand. NEURO: A&OX3. Able to sit up with assistance for only 1 to 2 minutes secondary to weakness.. Able to follow some commands. No slurred speech when answering simple questions. Results & Data ([facility]) Vital Signs (Past 12 Hours) Vital Signs Temp Pulse Pulse Resp BP Pulse Ox 04/06/19 15:10 36.9 C 81 20 160/88 H 94 04/06/19 11:22 36.6 C 84 20 159/89 H 93 04/06/19 08:00 79 04/06/19 07:12 36.5 C 80 15 150/70 H 92 Laboratory Results 04/06/19 06:35 04/06/19 13:43 04/04/19 04/04/19 04/05/19 09:37 12:03 10:19 ABG pH 7.24 L 7.26 L 7.45 ABG pCO2 69 H 66 H 42 ABG pO2 77 L 84 58 L ABG HCO3 29 H 29 H 29 H ABG O2 Saturation 94.3 95.0 91.5 ABG Base Excess -0.4 0.2 4.2 H VBG pH VBG pCO2 VBG pO2 VBG HCO3 VBG O2 Saturation VBG Base Excess 04/06/19 04/06/19 06:49 06:49 ABG pH ABG pCO2 ABG pO2 ABG HCO3 ABG O2 Saturation ABG Base Excess VBG pH 7.47 H Cancelled VBG pCO2 48 VBG pO2 36 VBG HCO3 34 VBG O2 Saturation 70.5 VBG Base Excess 8.6 Diagnostic Findings XR chest 1V portable 04/06/2019 CLINICAL HISTORY: 68 years-old Male presenting with lung infiltrates, recent weakness and sepsis. TECHNIQUE: Portable upright AP view of the chest was obtained. COMPARISON: 04/03/2019. FINDINGS: Atherosclerosis of the aortic arch. Cardiac silhouette enlarged. Elevation of the right hemidiaphragm as on prior exam. Minimal right basilar opacities. Small right pleural effusion suspected. No pneumothorax. Degenerative changes of the thoracic spine. Cholecystectomy clips noted. Several overlying external leads project over the lung bases to grating evaluation. IMPRESSION: 1. Minimal right basilar opacities likely atelectasis or scarring in the setting of a chronically elevated right hemidiaphragm. 2. Possible small right pleural effusion or pleural thickening as this finding is chronic. 3. Cardiomegaly. No evidence of advanced congestive changes. 4. No convincing evidence of acute cardiopulmonary disease. ACT 112: Negative or not required by law. Electronically signed by: Javid Nicolas M.D. 04/06/2019 10:47 AM PG Care Time/CCT Total # of Minutes Spent Total Time Spent with Patient: Total time spent is greater than 50% in coordination of care (as documented) at patient's floor/unit and/or counseling patient: Coding Level of Care Code 49215 Subseq Hosp Care Lvl 2 Diagnoses Hypercapnic respiratory failure J96.92 Paralyzed hemidiaphragm J98.6 Pneumonia J18.9
[2019-04-06] MEDS: AMOXICILLIN/CLAVULANATE 875 MG TAB PO SCH (17:39)
[2019-04-06] MEDS: DOXYCYCLINE HYCLATE 100 MG CAP PO SCH (21:19)
[2019-04-07] MEDS ORDERED: INSULIN ASPART 100 UNITS/ML 3 ML PEN SQ SCH
[2019-04-07 07:07] LABS: Basophils # (auto) 0.02 K/uL (0-0.2); Basophils % (auto) 0.2 %; Eosinophils # (auto) 0.17 K/uL (0-0.5); Hematocrit (blood only) 43.4 % (42-52); Immature Granulocytes # (auto) 0.07 K/uL (0.00-0.02); Immature Granulocytes % (auto) 0.8 %; Lymphocytes # (auto) 0.97 K/uL (1.2-3.4); Lymphocytes % (auto) 11.6 %; Mean Corpuscular Hemoglobin 27.7 pg (25-34); Mean Corpuscular Hgb Conc 32.3 g/dL (32-36); Mean Corpuscular Volume 85.9 fL (80-100); Mean Platelet Volume 8.9 fL (7.4-10.4); Monocytes % (auto) 7.2 %; Neutrophils # (auto) 6.52 K/uL (1.4-6.5); Neutrophils % (auto) 78.2 %; Platelet Count 176 K/uL (130-400); RDW Coefficient of Variation 15.1 % (11.5-14.5); RDW Standard Deviation 47.6 fL (36.4-46.3); Red Blood Count 5.05 M/uL (4.7-6.1); White Blood Count 8.35 K/uL (4.8-10.8)
[2019-04-07 07:44] LABS: BUN Creatinine Ratio 34.2 (10-20); Calcium 8.7 mg/dl (8.5-10.1); Creatinine Clr Calc Pharmacy 90.5 ml/min; Est GFR (African American) 99.9; Est GFR (Non-African American) 86.2; Potassium 3.6 mmol/L (3.5-5.1)
--- NOTE | 2019-04-07 08:42 | Pulmonology Progress Note ---
Date of Service April 07, 2019 Assessment & Plan (1) Hypercapnic respiratory failure: Patient with elevated PCO2 on admission as well as second day after receiving BiPAP therapy Patient is tolerating BiPAP Repeat ABGs show correction of PCO2 with use of BiPAP Patient will need outpatient follow-up and PFTs as well as polysomnography study. Patient has previous diagnosis of COPD. Combined with comorbidity of hypercapnia, patient will qualify for BiPAP on discharge. In the meantime, continue BiPAP 12/6 at bedtime and as needed Nocturnal pulse oximetry demonstrated hypoxia on room air with an SaO2 of 75% for an aggregate of 8 minutes. Patient should be discharged on BiPAP with settings 12/6 and bleed in 2 L/min of supplemental O2. Patient should use BiPAP at bedtime and as tolerated during the day (2) Paralyzed hemidiaphragm: Unable to adequately perform SNIFF test secondary to cognitive function This most likely is chronic in review of previous imaging Not a candidate for surgical intervention Continue BiPAP/positive air pressure at bedtime as tolerated (3) Pneumonia: Possible aspiration pneumonia secondary to cognitive function and Parkinson's Has been empirically treated with doxycycline and Zosyn * De-escalate antibiotics as tolerated * No overt infiltrates on chest x-ray this morning MRSA screening is negative -vancomycin has been discontinued by primary team 5 days of prednisone Swallow study with FLOORING GRADER completed * Easy to chew diet * Aspiration precautions * FLOORING GRADER via home health at discharge * Alternate solids and liquids * Crushed medications * Supervised meals * Fully upright and alert with feeding * Maintain good oral hygiene Continue strict aspiration precautions Thank you for including us in the care of this patient. We will continue to fo llow along with you. Please refer to Dr. Hwang's addendum and corrections for further recommendations. (4) Physical deconditioning: Patient has been bedbound since admission on 04/03/2019 I have ordered PT OT with weightbearing as tolerated Patient will need to stand and pivot to safely go home with his . Thank you very much for including us in the care of this patient. Please refer to Dr. Hwang's addendum for further recommendations. We will sign off at this time. Please feel free to reconsult as needed. We will be glad to follow Mr. Camarena in the outpatient clinic as needed Subjective Attending: Dr. Hwang Patient seen and examined at bedside with present. Patient is alert and oriented x3. He is able to give full review of systems and has no acute complaints. He did undergo nocturnal pulse oximetry study last night and desaturated 75% and had cumulative desaturations for almost 8 minutes. Patient is tolerating the BiPAP. His metabolic encephalopathy is cleared and his PCO2 is improved to within normal limits. Patient denies any fever, chills, sweats, rigors. He has no acute complaints. Review of Systems Review of Systems: All systems reviewed & are unremarkable except as noted in HPI & below Physical Exam Physical Exam: GENERAL : No acute distress EYES: No icterus, gaze conjugate NOSE: No evidence of epistaxis. Abrasion on bridge of nose from BiPAP mask MOUTH: No lesions or candidiasis NECK: Supple LUNGS: CTA B/L, no wheezes, rales or rhonchi HEART: Regular, rate controlled ABDOMEN: Soft, NT, ND, BS Present EXTREMITIES: No LE edema, pedal pulses intact NEURO: A&OX3 Results & Data ([facility]) Vital Signs (Past 12 Hours) Vital Signs Temp Pulse Pulse Pulse Resp BP Pulse Ox 04/07/19 07:23 37.1 C 79 16 163/90 H 92 04/07/19 04:21 36.7 C 76 18 158/77 H 92 04/07/19 01:20 75 04/07/19 00:09 36.4 C L 79 18 153/83 H 93 04/07/19 00:06 86 04/06/19 23:02 98 H 04/06/19 21:40 85 04/06/19 20:38 36.9 C 85 16 148/72 H 96 Pulse Ox 04/07/19 07:23 04/07/19 04:21 04/07/19 01:20 94 04/07/19 00:09 04/07/19 00:06 04/06/19 23:02 95 04/06/19 21:40 95 04/06/19 20:38 Laboratory Results 04/07/19 06:57 04/07/19 06:57 Diagnostic Findings XR chest 1V portable 04/06/2019 CLINICAL HISTORY: 68 years-old Male presenting with lung infiltrates, recent weakness and sepsis. TECHNIQUE: Portable upright AP view of the chest was obtained. COMPARISON: 04/03/2019. FINDINGS: Atherosclerosis of the aortic arch. Cardiac silhouette enlarged. Elevation of the right hemidiaphragm as on prior exam. Minimal right basilar opacities. Small right pleural effusion suspected. No pneumothorax. Degenerative changes of the thoracic spine. Cholecystectomy clips noted. Several overlying external leads pr oject over the lung bases to grating evaluation. IMPRESSION: 1. Minimal right basilar opacities likely atelectasis or scarring in the setting of a chronically elevated right hemidiaphragm. 2. Possible small right pleural effusion or pleural thickening as this finding is chronic. 3. Cardiomegaly. No evidence of advanced congestive changes. 4. No convincing evidence of acute cardiopulmonary disease. ACT 112: Negative or not required by law. Electronically signed by: Javid Nicolas M.D. 04/06/2019 10:47 AM PG Care Time/CCT Total # of Minutes Spent Total Time Spent with Patient: Total time spent is greater than 50% in coordination of care (as documented) at patient's floor/unit and/or counseling patient: 20 minutes Coding Level of Care Code 84286 Subseq Hosp Care Lvl 2 Diagnoses Hypercapnic respiratory failure J96.92 Paralyzed hemidiaphragm J98.6 Pneumonia J18.9 Physical deconditioning R53.81
[2019-04-07] MEDS: AMOXICILLIN/CLAVULANATE 875 MG TAB PO SCH ×2 (09:09→17:50)
[2019-04-07] MEDS: DOXYCYCLINE HYCLATE 100 MG CAP PO SCH (09:09)
[2019-04-07] MEDS: PROPRANOLOL HCL 20 MG TAB PO SCH (09:09)
[2019-04-07] MEDS: CYCLOBENZAPRINE HCL 10 MG TAB PO SCH ×2 (09:09→14:16)
[2019-04-07] MEDS: HEPARIN SOD 5,000 UNIT/0.5 ML VIAL SQ SCH (09:10)
[2019-04-07] MEDS: GABAPENTIN 400 MG CAP PO SCH ×2 (09:10→14:16)
[2019-04-07] MEDS: ROPINIROLE HCL 1 MG TABLET PO SCH (09:11)
[2019-04-07] MEDS: INSULIN ASPART 100 UNITS/ML 3 ML PEN SQ SCH ×3 (09:11→17:15)
--- NOTE | 2019-04-07 11:19 | Pharmacy Report ---
Pharmacy Glycemic Short Note 2 - Date of Service April 07, 2019 - Glycemic Short BSG Results (Last 24 hours): 04/06/19 04/06/19 04/06/19 11:20 13:43 16:14 Glucose 151 H POC Glucose 109 H 165 H 04/06/19 04/07/19 04/07/19 21:19 00:38 06:57 Glucose 93 POC Glucose 159 H 135 H 04/07/19 07:20 Glucose POC Glucose 89 OUTPATIENT ANTIDIABETIC REGIMEN: * Tresiba 60 units SQ BID (last taken this AM) * Trulicity 1.5mg SQ weekly (last taken 03/29) * Novolog up to 20 units SQ TID (up to 60 units daily) * A1c = 11% ASSESSMENT: 04/07 * BSGs well controlled over last 24 hrs. * Pt has only received 37 units SQ insulin over last 24 hrs - much less than prior days. Possibly needing less due to depletion of glycogen stores due to poor PO intake? * Fasting BSG 89 this AM with 35 units Lantus on board - will continue to scale back * Novolog doses will also decrease today 04/06 * BSGs improved yesterday and at goal * However this AM fasting hypoglycemia noted (FBS 63-68) with 120 units basal on board (equivalent to home dosage) * Pt's PO intake remains poor, will hold AM basal insulin dose as BSG did only climb to 109 prelunch * Lantus doses will be scaled back by at least 20% and will resume this evening * Of note, steroid dose changed yesterday - Solumedrol 40mg IV Q12 hrs --> Q 24 hrs, therefore did not receive evening dose yesterday (likely contributing to improved insulin sensitivity overnight) * Will scale back Novolog doses as well in light of AM hypo 04/05 * Glycemic control much improved at this time * Fasting BSG 160 this AM with 140 units basal insulin on board and after receiving (22 units Novolog overnight) * Solu-Medrol 40mg IV Q 12 hrs continues * A Heart Healthy Diet has been ordered - will continue w/ aggressive carb coverage should PO intake begin today 04/04 * BSGs trending favorably despite still being slightly above goal * Patient remains on high dose IV steroids however dose tapered from 40mg IV Q 8 hrs to Q 12 hrs today * NPO status continues * Will continue a basal insulin dose that is equivalent to his home dose - due to NPO status and a home regimen that was basal skewed * Will continue Q 4 hr correctional insulin at this time - same correction factor as BSGs responding. Will also add CR should diet resume in near future PLAN FOR INPATIENT GLYCEMIC CONTROL: * Basal insulin (dose reduction) * Lantus: hold AM dose today then SQ BID per scale: * 0 units if BSG less than 110 * 10 units if BSG 110-180 * 20 units if BSG above 180 * Bolus insulin (dose reduction) * NovoLog per scale ACHS and at 02 * Goal Range: Low 110 mg/dL - High 140 mg/dL * Correction Factor: 20 mg/dL/unit * Nutritional / Prandial insulin per carb ratio of 1 unit per 7 grams CHO consumed PLAN FOR DISCHARGE: * to be determined. 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
--- NOTE | 2019-04-07 12:25 | Hospitalist Progress Note ---
Date of Service April 07, 2019 Assessment & Plan (1) Metabolic encephalopathy: Metabolic Encephalopathy secondary to Hypercapnic respiratory failure with possible aspiration pneumonia Parkinson's Disease and Dementia -68 year old male with history of Parkinson's, Dementia, DM 2, HTN presenting with altered mental status. -patient with carbon dioxide retention and respiratory status required BIPAP; is room air oxygen as of 04/05/2019. -on BIPAP qHS for now (recent settings of IPAP/EPAP settings of 01/20). -Possible aspiration pneumonia on this admission on point or arrival secondary to cognitive function and Parkinson's as CT abdomen with Interval development of bibasilar parenchymal infiltrates; Speech Swallow assessments with aspiration precautions while inpatient -MRSA screening is negative -vancomycin has been discontinued by hospitalist on 04/05/2019. Zosyn which was empirically started on admission is stopped on 04/06/2019 with plans to transition to Augmentin. Continue doxycycline -patient completed solumedrol taper as of 03/2019 -Patient may benefit from outpatient PFTs as well as polysomnography study. -as per pulmonary service, patient has Paralyzed hemidiaphragm, most likely is chronic in review of previous imaging,not a surgical candidate and will be unable to adequately perform sniff test secondary to cognitive function -overnight pulse oximetry completed on night of 04/06/2019 Ambulatory dysfunction -patient is mostly bedbound as per - PT/OT evaluations suggest inpatient rehabilitation facility. patient also may be at risk of respiratory depression because of chronic opioid use for Buttock/Sacral Ulcer. efforts are being made by case management to coordinate BIPAP and physical rehab center on hospital discharge. 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 has barron Type 2 diabetes mellitus with prison current use of insulin -has active Pharmacologic Glycemic Control consult while inpatient Hypokalemia -serum potassium is 3 on AM of 04/06/2019. normalized after potassium supplementation Diabetic Neuropathy Restless Legs Syndrome -gabapentin, ropinirole, propranolol, cyclobenzapine Hypertension -Amlodipine 5 mg daily Chronic Kidney Disease Stage 3 -creatinine is 0.90 as of 04/06/2019 DVT Prophylaxis - Heparin subcutaneously [phone] Admission and Anticipated Discharge Date Admission Date: April 03, 2019 Subjective patient had pulse oximetry done at night. currently on room air during the day time. Patient was evaluated by physical therapy and because of immobility of ambulation, patient and his agrees for patient to go to physical rehab center after hospital stay Review of Systems Review of Systems: All systems reviewed & are unremarkable except as noted in HPI & below Physical Exam Constitutional: + obese Eyes: PERRL, conjunctivae normal, anicteric sclerae EOM intact bilaterally ENMT: external ear and nose normal, oropharynx normal Neck: normal visual inspection Respiratory: normal respiratory effort Cardiovascular: Rate/Rhythm: regular rate Gastrointestinal (Abdomen): normal bowel sounds, soft, nontender, no hepatosplenomegaly Musculoskeletal: Head/Neck/Chest: normocephalic and head atraumatic Neurologic: PERRL, EOMI, accommodation nl, no face palsy, no dysarthria Psychiatric: Orientation: alert and cooperative Genitourinary: mart Results & Data ([facility]) Vital Signs (Past 12 Hours) Vital Signs Temp Pulse Pulse Pulse Resp BP Pulse Ox 04/07/19 11:08 37.1 C 77 15 165/78 H 92 04/07/19 10:16 92 04/07/19 08:00 78 04/07/19 07:23 37.1 C 79 16 163/90 H 92 04/07/19 04:21 36.7 C 76 18 158/77 H 92 04/07/19 01:20 75 Pulse Ox 04/07/19 11:08 04/07/19 10:16 04/07/19 08:00 04/07/19 07:23 04/07/19 04:21 04/07/19 01:20 94
--- NOTE | 2019-04-07 16:29 | Discharge Summary ---
Date of Service April 07, 2019 Admission HPI Per Admitting Provider He is a 68-year-old male with significant past medical history of Parkinson's disease, dementia, type 2 diabetes on insulin, hypertension, history of respiratory failure and remote history of crush injury on the left side and has been minimally mobile was brought into the emergency room with unresponsive episode. The history was taken from the . He finished recent course of antibiotic yesterday with Bactrim for UTI. He was noted to be very drowsy since this morning and not been responding the way he used to be. He ate his breakfast this morning and at around 830 he became almost unresponsive and felt warm and at the time he was brought into the emergency room. No history of cough, fever and/or chills, no abdominal pain, nausea and/or vomiting, and no problem with urine and her bowel habit. No history of numbness or tingling in the extremities and no weakness involving any side of the body. In the ER he was minimally responsive to vocal commands. Opening his eyes and trying to squeeze my fingers and move the feet. He was not in any acute distress but he required BiPAP to maintain saturation. CT scan of the abdomen pelvis did show bibasilar infiltrate and with increasing white count he was started with intravenous vancomycin, Levaquin and Zosyn for possible sepsis secondary to pneumonia and/or UTI. He was admitted to telemetry unit for continuation of care. Principal Diagnosis Metabolic Encephalopathy secondary to Hypercapnic respiratory failure with possible aspiration pneumonia (but aspiration pneumonia generally ruled out) Parkinson's Disease and Dementia Ambulatory dysfunction Buttock/Sacral Ulcer on point of admission Type 2 diabetes mellitus with termite treater helper current use of insulin Hypertension Chronic Kidney Disease Stage 3 Hypokalemia (resolved) Diabetic Neuropathy Restless Legs Syndrome Discharge Exam Constitutional + obese Eyes PERRL, conjunctivae normal, anicteric sclerae EOM intact bilaterally ENMT external ear and nose normal, oropharynx normal Neck normal visual inspection Respiratory normal respiratory effort Cardiovascular Rate/Rhythm: regular rate Gastrointestinal (Abdomen) normal bowel sounds, soft, nontender, no hepatosplenomegaly Musculoskeletal Head/Neck/Chest: normocephalic and head atraumatic Neurologic PERRL, EOMI, accommodation nl, no face palsy, no dysarthria Psychiatric Orientation: alert and cooperative Discharge Data Allergies Allergy/AdvReac Type Severity Reaction Status Date / Time No Known Allergies Allergy Unverified 04/03/19 12:46 Consultations 04/03/19 14:27 ED Decision to Admit Stat 04/04/19 10:17 Consult Pulmonology Routine 04/05/19 08:28 Consult Wound Care Provider Routine Ordered Studies 04/03/19 11:50 CT head/brain wo con Stat 04/03/19 12:50 CT abd pelvis wo con Stat Hospital Course (1) Metabolic encephalopathy: Metabolic Encephalopathy secondary to Hypercapnic respiratory failure with possible aspiration pneumonia Parkinson's Disease and Dementia -68 year old male with history of Parkinson's, Dementia, DM 2, HTN presenting with altered mental status. -patient with carbon dioxide retention and respiratory status required BIPAP; is room air oxygen as of 04/05/2019. -on BIPAP qHS for now (recent settings of IPAP/EPAP settings of 01/20). -Possible aspiration pneumonia on this admission on point or arrival secondary to cognitive function and Parkinson's as CT abdomen with Interval development of bibasilar parenchymal infiltrates; Speech Swallow assessments with aspiration precautions while inpatient -MRSA screening is negative -vancomycin has been discontinued by hospitalist on 04/05/2019. Zosyn which was empirically started on admission is stopped on 04/06/2019 with plans to transition to Augmentin. Continue doxycycline -patient completed solumedrol taper as of 03/2019 -Patient may benefit from outpatient PFTs as well as polysomnography study. 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 Patient should use BiPAP at bedtime and as tolerated during the day discharge medication of Augmentin 875/125 mg BID and Doxycyline 100 mg BID for 3 more days upcoming outpatient appointment 04/13/2019 at 10:[address] [facility] Address: [address] [place] [address]; [address] Ambulatory dysfunction -patient is mostly bedbound as per - PT/OT evaluations suggest inpatient rehabilitation facility. patient also may be at risk of respiratory depression because of chronic opioid use for Buttock/Sacral Ulcer. efforts are made by case management to coordinate BIPAP and physical rehab center on hospital discharge. 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 has mart. continue mart on discharge Type 2 diabetes mellitus with [facility] current use of insulin -has active Pharmacologic Glycemic Control consult while inpatient Hypokalemia -serum potassium is 3 on AM of 04/06/2019. normalized after potassium supplementation Diabetic Neuropathy Restless Legs Syndrome -gabapentin, ropinirole, propranolol, cyclobenzapine Hypertension -Amlodipine 5 mg daily Chronic Kidney Disease Stage 3 -creatinine is 0.90 as of 04/06/2019 DVT Prophylaxis - Heparin subcutaneously [facility] [phone] Total Time Total Time Spent Total Time Spent (In Minutes): 40 minutes Total Time Includes: Examination of the Patient, Discharge Planning, Medication Reconciliation and Communication With Other Providers Discharge Plan Discharge Items Patient Disposition: Transfer Inpatient Rehab Fac Reason For Visit: UNRESPONSIVE,BIBASILAR PNEUMONIA Discharge Diagnosis: Metabolic Encephalopathy secondary to Hypercapnic respiratory failure with possible aspiration pneumonia (but aspiration pneumonia generally ruled out) Parkinson's Disease and Dementia Ambulatory dysfunction Buttock/Sacral Ulcer on point of admission Type 2 diabetes mellitus with termite treater helper current use of insulin Hypertension Chronic Kidney Disease Stage 3 Hypokalemia (resolved) Diabetic Neuropathy Restless Legs Syndrome Condition on Discharge: Good Activity: Per Instructions section Non-emergency contact: Primary Care Provider Call non-emergency contact if: you have any medication questions Follow-up/Referrals: eLe Martinez PA-C [Primary Care Provider] - Diet: Carb Consistent or DM2 Addtl Attending Provider Instructions: discharge to [facility] Patient should be discharged on BiPAP with settings (IPAP/EPAP) 12/6 and with 2 L/min of supplemental O2. Patient should use BiPAP at bedtime and as tolerated during the day discharge medication of Augmentin 875/125 mg BID and Doxycyline 100 mg BID for 3 more days upcoming outpatient appointment 04/13/2019 at 10:[address] Hwang [facility] Address: [address], [place] [address]; [address] Pending Studies at Discharge: No Stand-Alone Forms: [facility] Skilled Items Patient informed of condition?: Yes DNR: No Discharge Level of Care: Acute rehab Communicable Disease: No Discharge Prognosis: Stable Lines: None Urinary Catheter: Yes Medications and DC Order Prescriptions: New amoxicillin-pot clavulanate [Augmentin] 875-125 mg Tablet 1 tab PO BIDM 3 Days Qty: 6 RF: 0 doxycycline hyclate 100 mg Capsule 100 mg PO BID 3 Days Qty: 6 RF: 0 Continued multivitamin Tablet 1 tab PO DAILY RF: 0 cyclobenzaprine 10 mg tablet 10 mg PO TID RF: 0 ropinirole 1 mg tablet 1 mg PO BID RF: 0 aspirin [Aspir-81] 81 mg Tablet,Delayed Release (Dr/Ec) 81 mg PO DAILY RF: 0 oxycodone-acetaminophen [Percocet] 5-325 mg tablet 1 tab PO QID PRN (Reason: Pain) RF: 0 docusate sodium [Colace] 100 mg Capsule 100 mg PO DAILY PRN (Reason: Constipation) RF: 0 propranolol 20 mg tablet 20 mg PO BID RF: 0 cholecalciferol (vitamin D3) [Vitamin D3] 400 unit Capsule 400 unit PO DAILY RF: 0 Namzaric 28-10 mg capsule,sprinkle,ER 24hr 1 cap PO DAILY RF: 0 atorvastatin 10 mg tablet 10 mg PO DAILY RF: 0 gabapentin 400 mg capsule 400 mg PO TID RF: 0 amlodipine 5 mg tablet 5 mg PO DAILY RF: 0 insulin aspart U-100 [Novolog Flexpen U-100 Insulin] 100 unit/mL (3 mL) insulin pen See Rx Instructions .ROUTE .COMPLEX RF: 0 morphine 10 mg capsule,extend.release pellets 10 mg PO BID RF: 0 Tresiba FlexTouch U-200 200 unit/mL (3 mL) insulin pen 60 unit SUBCUT BID RF: 0 Trulicity 1.5 mg/0.5 mL pen injector 1.5 mg SUBCUT WK RF: 0 Discontinued magnesium oxide 400 mg magnesium Tablet 400 mg PO BID RF: 0 Discharge Orders: Discharge Order (Routine); Ordered 04/07/19 Ordered By: Chris Green Admission Data Admit Date/Time: 04/03/19 15:06 Attending Provider: Chris Green Admit Provider: Christina Chau Primary Care Provider: Lee Martinez Other Providers: Christina Chau ; Conner Hwang ; Cuco Martinez ; [facility] ; Aida Kaminski [facility]
[2019-04-07] MEDS ORDERED: AMLODIPINE BESYLATE 5 MG TAB PO SCH (16:30)
[2019-04-07] MEDS ORDERED: INSULIN GLARGINE SOLOSTAR 100 UNITS/ML 3 ML PEN SC SCH (21:00)
[2019-04-08] MEDS ORDERED: INSULIN ASPART 100 UNITS/ML 3 ML PEN SQ SCH (02:00)
== END 2019-04-07 20:00 | DRG 193 ==
LOC: ED 11:40 → SUATTDRO 15:06 → 2E 15:06